=== PATIENT | female | born 1970 | race Caucasian/White ===

== ENCOUNTER → 2017-10-03 09:51 | Outpatient (CLI) | payer OTHER, SELFPAY ==
--- NOTE | 2017-10-03 10:12 | RAD_ITS ---
STUDY: X-RAY - PELVIS REASON FOR EXAM: Female, 47 years old. PAIN IN BOTH HIPS. INFLAMMATORY POLYARTHROPATHY TECHNIQUE: One view of the pelvis was obtained. COMPARISON: None. FINDINGS: There is a non-specific bowel gas pattern. Normal visualized soft tissue structures. Normal bilateral iliac wings, sacroiliac joints and visualized sacrum. Normal visualized bilateral superior and inferior pubic rami. Normal pubic symphysis. Normal ischial tuberosities. Normal visualized right femoral head. Normal right acetabulum. Normal right hip joint. Normal visualized left femoral head. Normal left acetabulum. Normal left hip joint. RAD/Pelvis 1 or 2 Views IMPRESSION: Normal x-ray examination of the pelvis. Electronically Signed: Ez Randall MD at 20:17 EDT , Service support ,
[2017-10-03 12:22] LABS: Protein, Urine (Random) 13.9 mg/dL (<11.9); Protein:Creat Ratio 102 mg/g CRE (0-200)
[2017-10-03 12:51] LABS: Erythrocyte Sedimentation Rate 21 mm/hr (0-20)
[2017-10-03 12:53] LABS: Absolute Lymphocyte Count 2.33 X10^3/ul (0.83-4.51); Absolute Neutrophil Count 3.5 X10^3/uL (2.0-7.7); Basophil# 0.03 X10^3/uL; Basophil% 0.5 % (0-1); Eosinophil# 0.21 X10^3/uL; Eosinophils% 3.2 % (0-5); Hematocrit 43.8 % (37-47); Hemoglobin 13.6 g/dl (12.0-15.0); Lymphocyte # 2.33 X10^3/ul (4.0); Lymphocyte % 35.8 % (19-41); Mean Corp Hgb Conc 31.1 g/gl (32-36); Mean Corpuscular Hgb 27.1 pg (27.0-32.0); Mean Corpuscular Volume 87.3 fL (81-99); Mean Platelet Vol. 11.6 fl (6.2-12.0); Monocyte# 0.47 X10^3/uL; Monocyte% 7.2 % (0-10); Neutrophil # 3.46 X10^3/uL (2.7-7.7); Neutrophil % 53.3 % (47-70); Platelet Count 231 K/mm3 (150-450); RBC Distribution Width CV 13.9 % (11.6-14.6); RBC Distribution Width SD 44.2 fl (35.1-43.9); Red Blood Count 5.02 M/mm3 (4.2-5.4); White Blood Count 6.5 K/mm3 (4.4-11.0)
[2017-10-03 12:54] LABS: POSITIVE COUNT NO; POSITIVE DIFFERENTIAL NO; POSITIVE MORPHOLOGY NO
[2017-10-03 13:14] LABS: ALB/GLOB Ratio 0.9 RATIO (0.9-2.4); AST(SGOT) 35 U/L (15-37); Alanine Aminotransfer ALT/SGPT 47 U/L (13-56); Albumin, Serum 3.6 g/dL (3.2-5.0); Alkaline Phosphatase 86 U/L (45-117); Anion Gap 11 (5-15); BUN 10 mg/dL (7-18); BUN/Creat Ratio 14.6 RATIO (10-20); Calcium,Total 8.9 mg/dL (8.5-10.1); Chloride 102 mmol/L (98-107); Creatinine, Serum 0.68 mg/dL (0.55-1.02); EST Glomerular Filtration Rate 98 mL/min (>60); Est Glom Filt Rate - Afr Amer 119 mL/min (>60); Globulin 4.2 g/dL (2.2-4.2); Glucose 153 mg/dL (74-106); Protein, Total 7.8 g/dL (6.4-8.2); Rheumatoid Factor < 10.0 IU/mL (<15); Sodium Level 140 mmol/L (136-145)
[2017-10-04 16:10] LABS: Anti-Centromere B Ab <0.2 AI (0.0-0.9); Anti-Jo <0.2 AI (0.0-0.9); Anti-Scleroderma-70 AB <0.2 AI (0.0-0.9); RNP Ab 0.2 AI (0.0-0.9); SJOGREN'S Anti-SS-A test < 0.2 AI (0.0-0.9); SJOGREN'S Anti-SS-B test < 0.2 AI (0.0-0.9); Smith Ab <0.2 AI (0.0-0.9)
[2017-10-05 09:53] LABS: ANTINUCLEAR ANTIBODIES DIRECT Negative (Negative); Anti-dsDNA Ab <1 IU/mL (0-9)
[2017-10-08 16:07] LABS: Complement C3 200 mg/dL (82-167)
[2017-10-09 09:08] LABS: CCP IgG Antibodies 10 units (0-19); HEPATITIS B SURFACE AG Negative (Negative); HLA B27 Negative (.); Hep B Surface Antibodies Reactive (.); Hep C Antibodies 0.1 s/co ratio (0.0-0.9)
== END ==
PROVIDERS: Family Provider Family Medicine; PCP Family Medicine; Visit Provider Internal Medicine Rheumatology
DX: M06.4 Inflammatory polyarthropathy (principal); M79.7 Fibromyalgia; K76.0 Fatty (change of) liver, not elsewhere classified; M21.40 Flat foot [pes planus] (acquired), unspecified foot; K21.9 Gastro-esophageal reflux disease without esophagitis; E11.9 Type 2 diabetes mellitus without complications; I10 Essential (primary) hypertension; F41.1 Generalized anxiety disorder; G43.909 Migraine, unspecified, not intractable, without status migrainosus; J45.909 Unspecified asthma, uncomplicated
CPT/HCPCS: 36415; 72170; 80053; 81374; 82570; 84156; 85025; 85652; 86038; 86140; 86160; 86200; 86225; 86235; 86431; 86706; 86803; 87340

== ENCOUNTER 2024-11-24 10:02 | Emergency (ER) | payer OTHER, SELFPAY ==
[2024-11-24 10:02] VITALS: BP 144/82; PULSE 88; RESP 20; TEMP 36.6; O2SAT 100
--- NOTE | 2024-11-24 10:13 | EDS_ITS ---
HPI History of Present Illness Chief Complaint: Back Narrative Narrative: 54-year-old female past medical history of diabetes, fibromyalgia presents with her after a fall in the shower approximately an hour and a half ago. She states that they were staying at a cabin in [place] and she fell directly onto the small of her back in the shower. She denies hitting her head or loss of consciousness. She has pain mainly in the lower portion of her lumbar spine. She denies other injuries. She was able to get up and ambulate afterwards. She states she does not have problems chronically with her back but has had back pain in the past. She is unable to get comfortable, and fears she may have broken her back. PFSH PFSH Home Medications ?Medication ?Instructions ?Recorded ?Last Taken ?Type ondansetron 4 mg disintegrating 4 mg PO Q8H PRN PRN Na usea #15 tabs 11/24/24 Unknown Rx tablet oxycodone-acetaminophen 5 mg-325 1 tab PO Q6H PRN pain 3 days #12 11/24/24 Unkno wn Rx mg tablet (Percocet) tabs Allergy/AdvReac Type Severity Reaction Status Date / Time clarithromycin (From Biaxin) Allergy Intermediate Hives Verified 11/24/24 10:05 acetaminophen (From Vicodin) AdvReac Intermediate Nausea Verified 11/24/24 10:05 hydrocodone (From Vicodin) AdvReac Intermediate Nausea Verified 11/24/24 10:05 sumatriptan (From Imitrex) AdvReac Mild Other Verified 11/24/24 10:05 Social History Smoking Status: Never smoker ROS ROS ED ROS Narrative Review of systems positive for lower lumbar spinal pain. Denies hitting head, loss of consciousness, no neck pain, no other injury. EXAM Physical Exam Narrative Exam Narrative: GCS 15. ABCs intact. Cardiovascular examination regular rate and rhythm. Lungs are clear to auscultation bilaterally with mild tachypnea. Abdomen is soft and nontender without guarding or rebound. No cervical spine pain or crepitance, no thoracic spine pain or crepitance. Diffuse tenderness to palpation throughout lower lumbar spine area but no step-off noted. Neurovascularly intact bilateral lower extremities. Able to lift bilateral legs off bed without difficulty. Plantarflexion and dorsiflexion of foot intact bilaterally. Const Vital Signs: 11/24/24 10:02 Temperature 97.8 F Temperature Source Oral Pulse Rate 88 Respiratory Rate 20 H Blood Pressure 144/82 H Blood Pressure Mean 102 Pulse Ox 100 Oxygen Delivery Method Room Air MDM MDM MDM Narrative Medical decision making narrative: Differential diagnosis includes but not limited to lumbar contusion status post fall versus vertebral fracture versus compression fracture. Patient asked specifically for Toradol as an intramuscular injection. She has allergies to Vicodin which is actually nausea and vomiting [address] of the lumbar spine was obtained to help rule in/out fracture. I reviewed the radiology report of the CT of the lumbar spine. There is an acute compression fracture of the upper endplate of T12 with 30% height loss and 5 mm of retropulsion which causes mild canal stenosis but there is no mention of spinal cord compression. Additionally there is an acute compression fracture of the upper endplate of L3 with 25% height loss without retropulsion. Upon repeat examination she feels mildly improved stating her pain is down to a 5 or 6. I do feel she can be discharged to follow-up with orthopedic spine. I discussed with her the use of narcotic pain medication and she states she has tolerated Percocet in the past. She was given an oxycodone and a Zofran here and written prescriptions for Percocet for 3 days and for Zofran No. 15. I feel she can be discharged to follow-up. Return instructions to the emergency department were reviewed. Disposition is discharged home in stable condition. History & Record Review Additional record(s) reviewed:: Prior ED visit Radiography Diagnostic Testing: Clinical Impression(s) from Imaging Studies Lumbar Spine CT 11/24/24 10:13 IMPRESSION: Acute compression fracture of the upper endplate of T12 with 30% height loss and 5 mm retropulsion causing mild canal stenosis. Acute compression fracture at the upper endplate of L3 with 25% height loss and without retropulsion. Reading Location: [facility] Discharge Plan Triage Chief Complaint: Back ED Provider: aRdames Paredes Dx/Rx/DC Orders Clinical Impression: Fall, T12 compression fracture, Compression fracture of L3 vertebra Instructions: ED Fracture, Vertebral Compression, ED Fall Prevention Prescriptions: New oxycodone-acetaminophen [Percocet] 5-325 mg tablet 1 tab PO Q6H PRN (Reason: pain) 3 Days Qty: 12 0RF ondansetron 4 mg tablet,disintegrating 4 mg PO Q8H PRN PRN (Reason: Nausea) Qty: 15 0RF Stand Alone Forms: ED Work / School Excuse Primary Care Provider: Jose Miguel Mckenzie Referrals: Wilder Conrad MD [Med Staff - Active Staff, Orthopedics] - 3-5 Days Jose Miguel Mckenzie MD [Primary Care Provider, Family Practice] - 3-5 Days Activity Restrictions/Additional Instructions: Follow-up with Dr. Conrad with orthopedic spine in the next 3 to 5 days. Print Language: Norwegian Disposition Disposition: Home, Self Care
--- NOTE | 2024-11-24 10:13 | CT_ITS ---
PROCEDURE: SPINE LUMBAR WITHOUT CONTRAST 11/24/2024 REASON FOR EXAM: TRAUMA TECHNIQUE: Procedure Code: CTSPL Modality: CT Procedure: SPINE LUMBAR WITHOUT CONTRAST Coronal and Sagittal reconstruction series were provided. One or more dose reduction techniques were used (e.g., Automated exposure control, adjustment of the mA and/or kV according to patient size, use of iterative reconstruction technique COMPARISON: None. RADIATION DOSE SUMMARY: CTDlvol: 27.33 mGy DLP: 896.58 mGycm FINDINGS: Vertebrae: Acute compression fracture of the upper endplate of T12 with 30% height loss and 5 mm retropulsion causing mild canal stenosis. Acute compression fracture at the upper endplate of L3 with 25% height loss and without retropulsion. Alignment: Normal. L1-2: No significant foraminal or canal stenosis. L2-3: No significant foraminal or canal stenosis. L3-4: No significant foraminal or canal stenosis. L4-5: No significant foraminal or canal stenosis. L5-S1: No significant foraminal or canal stenosis. Sacrum: No acute fractures. CT/Spine Lumbar without Contrast IMPRESSION: Acute compression fracture of the upper endplate of T12 with 30% height loss an d 5 mm retropulsion causing mild canal stenosis. Acute compression fracture at the upper endplate of L3 with 25% height loss and without retropulsion. Reading Location: [id number]
--- OUTSIDE RECORDS SUMMARY | 2024-11-24 10:27 | XMS RPT_ITS | CCD ---
Author Organization [facility] CliniSywv Care Team Providers Care Parachute Folder Name Role Phone Unavailable Unavailable Unavailable Nidhi Davis Unavailable Unavailable FarNidhi cárdenas Unavailable Unavailable Vellanki, Karen Unavailable Unavailable Vellanki, Karen Unavailable Unavailable Mckenzie, Jose Miguel Unavailable Unavailable Mckenzie, Christopher Unavailable Unavailable Furness Jd Unavailable Unavailable Mckenzie Christopher D Unavailable Unavailable Wood, Stella Unavailable Unavailable Jd Brennan Unavailable Unavailable Unavailable Jd Brennan Unavailable Rigo Escoto Unavailable Unavailabl e Unavailable Unavailable JD BRENNAN Primary Care UnaKEVON Rider Attending Unavailable Jd Brennan MD Primary Care [facility] er Unavailable Unavailable Unavailable Unavailable Fernando Bynum Unavailable Unavailable Ranjith, Prudence Unavailable Unavailable Bilderback, Kenia Unavailable Unavailabl e Jd Brennan MD Primary Care Provider Mika, Dr. Jd Sánchez Primary Care Un available Furness, Dr. Jd Sánchez Attending Un available Furness, Dr. Jd Sánchez Referring Un available Furness, Dr. Jd Sánchez Primary Care Un available Furness, Dr. Jd Sánchez Attending Un available Furness, Dr. Jd Sánchez Referring Un available Furness, Dr. Jd Sánchez Primary Care Un available Winston Darius, Dr. Taurus Valdivia Attending U navailable Tish Mccoy, Dr. Taurus Valdivia Referring U navailable Furnremigio, Dr. Jd Sánchez Primary Care Un available LeMasters, Dr. Rigo Gao Referring Unav ailable Winston Darius, Dr. Taurus Valdivia Attending U navailable Furness, Dr. Jd Sánchez Primary Care Un available Winston DariusTaurus Attending Unavailable LEMASTERS, DO RIGO GAO Attending Unava ilable Furness, Dr. Jd Sánchez Primary Care Un available Bilderback, Ms. Kenia Palafox Attending Unavailable Furness, Dr. Jd Sánchez Primary Care Un available Furness, Dr. Jd Sánchez Primary Care Un available Kamenik, Fernando Tessie Attending Unavai lable Furness, Dr. Jd Sánchez Primary Care Un available Ranjith, Prudence Attending Unavailable Furness, Dr. Jd Sánchez Primary Care Un available Winston DariusTaurus Attending Unavailable Winston Taurus Mccoy Referring Unavailable Furness, Dr. Jd Sánchez Primary Care Un available Furness, Dr. Jd Sánchez Attending Un available Furness, Dr. Jd Sánchez Referring Un available Furness Jd NEUMANN Primary Care Provider [phone] Furness Jd NEUMANN Primary Care Provider [phone] JD BRENNAN Attending Unavailable FURNESS, JD Hoffmann Referring Unavailable FURNESS, JD Hoffmann Primary Care Unavailable FURNESS, JD Hoffmann Attending Unavailable FURNESS, JD Hoffmann Primary Care Unavailable FURNESSJD Attending Unavailable FURNESS, JD Hoffmann Referring Unavailable FURNESS, JD Hoffmann Primary Care Unavailable YEATERLUCIA Attending Unavailable FURNESS, JD Hoffmann Primary Care Unavailable YEATERLUCIA Referring Unavailable FURNESS, JD Hoffmann Primary Care Unavailable JAMES HOWARD Attending Unavailable YEATERLUCIA Referring Unavailable FURNESS, JD Hoffmann Primary Care Unavailable YEATERLUCIA Referring Unavailable FURNESS, JD Hoffmann Primary Care Unavailable Allergies Allergy Classification Reported Allergen(s) Allergy Type Date of Onset Reaction(s) Facility Acetaminophen / HYDROcodone (3 sources) Acetaminophen / HYDROcodone; Translations: [Vicodin TABS] Drug Allergy Vomiting [place] [address] [place] Work Phone: Adrenergic Antagonists (3 sources) tamsulosin; Translations: [Flomax] Drug Allergy Itching, Swelling [address] Work Phone: Macrolides (antibiotic) (6 sources) Azithromycin; Translations: [azithromycin] Drug Allergy Diarrhea, Abdominal pain [address] Work Phone: Opioid Agonists (3 sources) Meperidine; Translations: [Demerol TABS] Drug Allergy Hypotension [address] Work Phone: Serotonin-1b and Serotonin-1d Receptor Agonists (6 sources) SUMAtriptan; Translations: [Imitrex] Drug Allergy [address] Work Phone: Sulfamethoxazole / Trimethoprim (6 sources) Sulfamethoxazole / Trimethoprim; Translations: [sulfamethoxazole-tr imethoprim] Drug Allergy Rash, Itching [address] Work Phone: (20 sources) Acetaminophen / HYDROcodone; Translations: [Vicodin TABS] Drug Allergy 06-19-19 23 Vomiting, Unknown [email or web address] [facility] Work Phone: (20 sources) Azithromycin; Translations: [azithromycin] Drug Allergy 05-03-19 22 Diarrhea [employer] [facility] Work Phone: Comment on above: NAUSEA/ VOMITING / D IARRHEA (20 sources) Erythromycin; Translations: [erythromycin] Drug Allergy 05-03-19 22 Abdominal pain, GI Intolerance, Unknown [employer] [facility] Work Phone: Comment on above: VOMITING / NAUSEA (20 sources) Meperidine; Translations: [Demerol TABS] Drug Allergy 05-03-19 22 Hypotension, Other (See Comments), Anaphylaxis, Unknown [employer] [facility] Work Phone: (20 sources) Sulfamethoxazole / Trimethoprim; Translations: [Bactrim] Drug Allergy Hives/Urticari a, Hives [email or web address] [facility] Work Phone: (20 sources) Sulfamethoxazole / Trimethoprim; Translations: [sulfamethoxazole-tr imethoprim] Drug Allergy 06-19-19 23 Rash, Itching, Unknown [email or web address] [facility] Work Phone: (20 sources) SUMAtriptan; Translations: [Imitrex] Drug Allergy [facility] Work Phone: (20 sources) tamsulosin; Translations: [Flomax] Drug Allergy [facility]ching, [facility] Work Phone: (20 sources) ZOLMitriptan; Translations: [Zomig] Drug Allergy Other [facility] Work Phone: Comment on above: VISION PROBLEMS (4 sources) Clarithromycin Drug Allergy Hives/Urticari a, Hives [facility] (4 sources) Meperidine Drug Allergy Unknown [facility] (12 sources) Bacitracin; Translations: [BACITRACIN] Drug Allergy 05-03-19 22 Hives [facility] (3 sources) Meperidine; Translations: [MEPERIDINE] Drug Allergy 05-03-19 22 [facility] (15 sources) SUMAtriptan; Translations: [SUMATRIPTAN] Drug Allergy 05-03-19 22 Other (See Comments), Unknown [facility] (13 sources) Clarithromycin; Translations: [CLARITHROMYCIN] Drug Allergy 06-19-19 Unknown [facility] Work Phone: (13 sources) tamsulosin; Translations: [TAMSULOSIN] Drug Allergy 06-19-19 23 Itching, Swelling [facility] Work Phone: (13 sources) ZOLMitriptan; Translations: [ZOLMITRIPTAN] Drug Allergy 06-19-19 Unknown [facility] Work Phone: (2 sources) Acetaminophen / HYDROcodone; Translations: [HYDROCODONE-ACETAMI NOPHEN] Drug Allergy 06-19-19 23 [place] [id number] Repository Medications Current Medications Medication Drug Class(es) Dates Sig (Normalized) Sig (Original) [id number] actuat albuterol 0.09 mg/actuat metered dose inhaler (13 sources) beta2-Adrenergic Agonist Start: 08-29-2023 albuterol 90 mcg/actuation inhaler Indications: Mild intermittent asthma without complication ([facility]) Inhale 2 puffs if needed for wheezing. 18 g 11 08/29/2023 Active Start: 02-01-2022 take 2 puff(s) by in halation twice daily as needed for cough albuterol 90 mcg/inh inhalation aerosol ; 2 puff(s) inhaled 2 times a day as needed for cough Quantity: 8.5 Refills: 0 Ordered: 01-Feb-2022 Fernando Bynum Start: 01-Feb-2022 Generic Substitution Allowed Comments: For inhalation only.It is very important that you take or use this exactly as directed. Do not skip doses or discontinue unless directed by your doctor.Obtain medical advice before taking any non-prescription drugs as some may affect the action of this medication.Shake well before use. Start: 02-01-2022 End: 08-29-2023 albuterol 90 mcg/actuation i nhaler Inhale twice a day. 02/01/2022 08/29/2023 Discontinued (Reorder) Start: 01-13-2019 take 2 puff(s) by mo ut every four to six hours as needed Albuterol Sulfate HFA 108 (90 Base) MCG/ACT Inhalation Aerosol Solution INHALE 2 PUFFS BY MOUTH EVERY 4 TO 6 HOURS NEEDED FOR SHORTNESS OF Quantity: 18 Refills: 0 DO Start : 13-Jan-2019 Active Comment on above: For inhalation only. It is very important that you take or use this exactly as directed. Do not skip doses or discontinue unless directed by your doctor.Obtain medical advice before taking any non-prescription drugs as some may affect the action of this medication.Shake well before use. amoxicillin 875 mg / clavulanate 125 mg oral tablet (4 sources) Penicillin-class Antibacterial Start: 03-06-20 End: 03-15-19 23 take 1 tablet by mouth every twelve hours amoxicillin-clavul anate 875 mg-125 mg oral tablet ; 1 tab(s) orally every 12 hours Quantity: 20 Refills: 0 Ordered: 05-Mar-2022 Kenia Morillo Start: 05-Mar-2022 End: 14-Mar-2022 Generic Substitution Allowed Comments: Finish all this medication unless otherwise directed by prescriber.Take with food or milk. Start: 01-17-2019 take 1 tablet by pauly th once daily Amoxicillin-Pot Clavulanate 875-125 MG Oral Tablet TAKE 1 TABLET EVERY 12 HOURS DAILY. Quantity: 20 Refills: 0 Jd Brennan Start : 17-Jan-2019 Active Comment on above: Finish all this medi cation unless otherwise directed by prescriber.Take with food or milk. ascorbic acid 500 mg oral tablet (15 sources) Vitamin C take 1 tablet by mouth once daily ascorbic acid (Vitamin C) 500 mg tablet Take 1 tablet (500 mg) by mouth once daily. Active Vitamin C TABS T JUDIE 1 TABLET DAILY. Refills: 0 DO Active Vitamin C TABS T JUDIE 1 TABLET DAILY. Refills: 0 Active aspirin 81 mg delayed release oral tablet (20 sources) Platelet Aggregation Inhibitor, Nonsteroidal Anti-inflammatory Drug Start: 02-25-2023 End: 03-08-2025 take 1 tablet by mouth once daily aspirin 81 mg EC tablet Indications: Primary hypertension Take 1 tablet (81 mg) by mouth once daily. 90 tablet 3 03/08/2024 03/08/2025 Active Start: 09-17-2022 take 1 tablet by [facility] once daily Aspirin 81 MG Oral Tablet Delayed Release TAKE 1 TABLET BY MOUTH EVERY DAY Quantity: 90 Refills: 3 Ordered: 17-Sep-2022 Taurus Bazzi MD Start : 17-Sep-2022 Active End: 03-02-2021 Aspirin 81 MG Oral Tablet Ch ewable Quantity: 0 Refills: 0 Ordered: 02-Mar-2021 DO End : 02-Mar-2021 Complete Aspirin 81 MG Or al Tablet Chewable Quantity: 0 Refills: 0 Ordered: 11-Dec-2020 DO Active calcium carbonate 2500 mg / cholecalciferol 800 unt oral tablet (11 sources) Vitamin D take 1 tablet by mouth once daily calcium carbonate-vitamin D3 1,000 mg-20 mcg (800 unit) tablet Take 1 tablet by mouth once daily. Active cyclobenzaprine hydrochloride 5 mg oral tablet (20 sources) Muscle Relaxant Start: 02-26-20 End: 03-08-19 cyclobenzaprine (Flexeril) 5 mg tablet Indications: Fibromyalgia Take 1 tablet (5 mg) by mouth as needed at bedtime for muscle spasms. 90 tablet 3 03/08/2024 03/08/2025 Active Start: 02-17-2021 take 1 tablet by pauly th three times daily as needed Cyclobenzaprine HCl - 5 MG Oral Tablet TAKE 1 TABLET 3 TIMES DAILY NEEDED. Quantity: 30 Refills: 1 Ordered: 28-Aug-2021 Jd Brennan MD Start : 17-Feb-2021 Active take 2 tablets by mo [facility] at bedtime Cyclobenzaprine HCl - 10 MG Oral Tablet TAKE 2 TABLET Bedtime PRN spasm Refills: 0 Active dapagliflozin 10 mg oral tablet (17 sources) Sodium-Glucose Cotransporter 2 Inhibitor Start: 02-25-2023 End: 03-08-2025 take 1 tablet by mouth once daily before mealtime dapagliflozin propanediol (Farxiga) 10 mg Indications: Type 2 diabetes mellitus without complication, without long-term current use of insulin Take 1 tablet (10 mg) by mouth once daily in the morning. Take before meals. 90 tablet 3 03/08/2024 03/08/2025 Active Start: 12-03-2021 take 1 tablet by pauly once daily in the morning Farxiga 10 MG Oral Tablet TAKE 1 TABLET BY MOUTH EVERY MORNING Quantity: 90 Refills: 3 Ordered: 22-Mar-2022 Jd Brennan MD Start : 03-Dec-2021 Active dextromethorphan hydrobromide 3 mg/ml / promethazine hydrochloride 1.25 mg/ml oral solution (1 source) Phenothiazine, Uncompetitive G-ujzlno-Y-aspartate Receptor Antagonist, Sigma-1 Agonist Start: 05-03-2021 End: 05-10-2021 take 5 mL by mouth four times daily as needed for cough promethazine-dextromethorphan (PROMETHAZINE-DM) 6.25-15 mg/5 mL syrup Take 5 mL by mouth 4 (four) times a day as needed for cough . 120 mL 0 05/03/2021 05/10/2021 Active dicyclomine hydrochloride 20 mg oral tablet (1 source) Anticholinergic Start: 10-28-2020 take 1 tablet by mouth four times daily dicyclomine 20 mg oral tablet ; 1 tab(s) orally 4 times a day Quantity: 20 Refills: 0 Ordered: 28-Oct-2020 Rigo Escoto Start: 28-Oct-2020 Generic Substitution Allowed Comments: May cause drowsiness. Alcohol may intensify this effect. Use care when operating dangerous machinery. Comment on above: May cause drowsiness . Alcohol may intensify this effect. Use care when operating dangerous machinery. 0.5 ml dulaglutide 3 mg/ml auto-injector (20 sources) GLP-1 Receptor Agonist Start: 02-15-2018 dulaglutide 1.5 mg/0.5 mL Pe n Inject 1 Unspecified under the skin . 0 02/15/2018 Active Trulicity Pen ; subcutaneous once a week Quantity: 0 Refills: 0 Ordered: 13-Feb-2020 Bowling, Melanic Generic Substitution Allowed dulaglutide (Trulicity) 3 mg/0.5 mL pen injector (3 sources) Start: 01-04-2023 End: 03-08-2024 dulaglutide (Trulicity) 3 mg /0.5 mL pen injector Indications: Type 2 diabetes mellitus without complication, without long-term current use of insulin (Multi) INJECT 1 PEN UNDER THE SKIN WEEKLY 2 mL 11 01/04/2023 03/08/2024 Discontinued (Therapy completed) Start: 01-04-2023 dulaglutide (T rulicity) 3 mg/0.5 mL pen injector Indications: Type 2 diabetes mellitus without complication, without long-term current use of insulin (Multi) INJECT 1 PEN UNDER THE SKIN WEEKLY 2 mL 11 01/04/2023 Active fexofenadine hydrochloride 180 mg oral tablet (20 sources) Histamine-1 Receptor Antagonist Start: 12-03-2022 End: 06-11-2025 take 1 tablet by mouth once daily fexofenadine (Brynn) 180 mg tablet Indications: Non-seasonal allergic rhinitis, unspecified trigger Take 1 tablet (180 mg) by mouth once daily. 90 tablet 3 06/11/2024 06/11/2025 Active take 1 tablet by mouth once james y Brynn 180 mg oral tablet ; 1 tab(s) orally once a day Quantity: 0 Refills: 0 Ordered: 13-Feb-2020 Bowling, Melanic Generic Substitution Allowed Brynn CAPS [place] ntity: 0 Refills: 0 Ordered: 02-Sep-2020 DO Active fluconazole 150 mg oral tablet (14 sources) Azole Antifungal Start: 08-29-2023 End: 08-29-2023 take 1 tablet by mouth once fluconazole (Diflucan) 150 mg tablet Indications: Mild intermittent asthma without complication ([facility]) Take 1 tablet (150 mg) by mouth 1 time for 1 dose. 1 tablet 1 08/29/2023 08/29/2023 Active Start: 07-11-2020 take 1 tablet by mouth once Fl uconazole 150 MG Oral Tablet TAKE 1 TABLET 1 TIME ONLY. Quantity: 1 Refills: 5 Ordered: 28-Aug-2021 Jd Brennan MD Start : 11-Jul-2020 Active Start: 03-19-2019 take 1 tablet by mouth once Fl uconazole 150 MG Oral Tablet TAKE 1 TABLET 1 TIME ONLY. Quantity: 2 Refills: 0 Stella Rinaldi Start : 19-Mar-2019 Active insulin detemir 100 unt/ml injectable solution (5 sources) Insulin Analog Levemir FlexPen 100 units/mL subcutaneous solution ; 24 unit(s) subcutaneous once a day Quantity: 0 Refills: 0 Ordered: 13-Feb-2020 Bowling, Melanic Generic Substitution Allowed inject 32 [IU] by [place]andon bcutaneous injection once daily, then inject 100 [IU] by subcutaneous injection Levemir FlexPen 100 UNIT/ML Subcutaneous Solution INJ 32 UNITS SQ DAILY Refills: 0 Active metFORMIN hydrochloride 1000 mg oral tablet (20 sources) Biguanide Start: 02-25-2023 End: 03-08-2025 take 1 tablet by mouth twice daily metFORMIN (Glucophage) 1,000 mg tablet Indications: Type 2 diabetes mellitus without complication, without long-term current use of insulin Take 1 tablet (1,000 mg) by mouth 2 times a day. 180 tablet 3 03/08/2024 03/08/2025 Active Start: 12-03-2021 take 1 tablet by pauly twice daily metFORMIN HCl - 1000 MG Oral Tablet TAKE 1 TABLET TWICE DAILY. Quantity: 180 Refills: 3 Ordered: 22-Mar-2022 Jd Brennan MD Start : 03-Dec-2021 Active Start: 01-17-2019 take 2 tablets by mo [facility] once daily at dinner metFORMIN HCl ER 750 MG Oral Tablet Extended Release 24 Hour TAKE 2 TABLETS ONCE DAILY WITH THE EVENING MEAL. Quantity: 180 Refills: 3 Jd Brennan Start : 17-Jan-2019 Active 24 hr metoprolol succinate 50 mg extended release oral tablet (20 sources) beta-Adrenergic Marga Start: 02-25-2023 End: 03-08-2025 take 1 tablet by mouth once daily metoprolol succinate XL (Toprol XL) 50 mg 24 hr tablet Indications: Primary hypertension Take 1 tablet (50 mg) by mouth once daily. 90 tablet 3 03/08/2024 03/08/2025 Active take 1 tablet by mouth once james y Metoprolol Succinate ER 50 MG Oral Tablet Extended Release 24 Hour TAKE 1 TABLET DAILY. Quantity: 90 Refills: 3 Ordered: 22-Mar-2022 Jd Brennan MD Active montelukast 10 mg oral tablet (8 sources) Leukotriene Receptor Antagonist Start: 06-11-2024 End: 06-11-2025 take 1 tablet by mouth once daily at bedtime montelukast (Singulair) 10 mg tablet Indications: Non-seasonal allergic rhinitis, unspecified trigger Take 1 tablet (10 mg) by mouth once daily at bedtime. 90 tablet 3 06/11/2024 06/11/2025 Active Start: 12-03-2022 End: 03-08-2024 take 1 tablet by mouth once daily at bedtime montelukast (Singulair) 10 mg tablet Indications: Non-seasonal allergic rhinitis, unspecified trigger Take 1 tablet (10 mg) by mouth once daily at bedtime. 90 tablet 3 12/03/2022 03/08/2024 Discontinued (Therapy completed) Multivitamin preparation (4 sources) take 1 tablet by pauly th once daily Multiple Vitamins oral tablet ; 1 tab(s) orally once a day Quantity: 0 Refills: 0 Ordered: 26-Feb-2020 Anjel Eldridge Generic Substitution Allowed MULTIVITAMIN-FERROUS FUMARATE-FOLIC ACID 9 MG-200 MCG TABLET, HALF TABLET, (Centrum) (11 sources) MULTIVITAMIN-CHING NINA FUMARATE-FOLIC ACID 9 MG-200 MCG TABLET, HALF TABLET, (Centrum) Take 1 half tablet by mouth once daily. Active MULTIVITAMIN-CHING NINA FUMARATE-FOLIC ACID 9 MG-200 MCG TABLET, HALF TABLET, (Centrum) Take 1 half tablet by mouth once daily. 0 Active omeprazole 40 mg delayed release oral capsule (20 sources) Proton Pump Inhibitor Start: 02-25-2023 End: 03-08-2025 take 1 capsule by mouth once daily before mealtime omeprazole (PriLOSEC) [address] capsule Indications: Gastroesophageal reflux disease without esophagitis Take 1 capsule (40 mg) by mouth once daily in the morning. Take before meals. 90 capsule 3 03/08/2024 03/08/2025 Active Start: 10-17-2019 End: 11-15-2023 take 1 capsule by mouth once daily before mealtime omeprazole (PriLOSEC) [address] capsule Indications: Gastroesophageal reflux disease without esophagitis Take 1 capsule (20 mg) by mouth once daily in the morning. Take before meals. 90 capsule 3 11/15/2022 11/15/2023 Active take 1 capsule by [facility] once daily Omeprazole 40 MG Oral Capsule Delayed Release TAKE 1 CAPSULE Daily Refills: 0 Active ondansetron 4 mg disintegrating oral tablet (1 source) Serotonin-3 Receptor Antagonist Start: 10-28-2020 take 1 tablet by mouth three times daily ondansetron 4 mg oral tablet, disintegrating ; 1 tab(s) orally 3 times a day Quantity: 12 Refills: 0 Ordered: 28-Oct-2020 Rigo Escoto Start: 28-Oct-2020 Generic Substitution Allowed oxyCODONE hydrochloride 5 mg oral tablet (1 source) Opioid Agonist Start: 10-28-2020 End: 10-30-2020 take 1 tablet by mouth every eight hours as needed oxyCODONE 5 mg oral tablet ; 1 tab(s) orally every 8 hours, As Needed Quantity: 9 Refills: 0 Ordered: 28-Oct-2020 Rigo Escoto Start: 28-Oct-2020 End: 30-Oct-2020 Generic Substitution Allowed Comments: Caution federal law prohibits the transfer of this drug to any person other than the person for whom it was prescribed.It is very important that you take or use this exactly as directed. Do not skip doses or discontinue unless directed by your doctor.May cause drowsiness or dizziness.This prescription cannot be refilled.Using more of this medication than prescribed may cause serious breathing problems. Comment on above: Caution federal law prohibits the transfer of this drug to any person other than the person for whom it was prescribed.It is very important that you take or use this exactly as directed. Do not skip doses or discontinue unless directed by your doctor.May cause drowsiness or dizziness.This prescription cannot be refilled.Using more of this medication than prescribed may cause serious breathing problems. predniSONE 20 mg oral tablet (9 sources) Start: 03-29-2024 End: 04-03-2024 take 2 tablets by mouth once daily predniSONE (Deltasone) 20 mg tablet Indications: Mild intermittent asthma without complication ([facility]) Take 2 tablets (40 mg) by mouth once daily for 5 days. 10 tablet 03/29/2024 04/03/2024 Active Start: 08-29-2023 End: 09-03-2023 take 2 tablets by mouth once daily predniSONE (Deltasone) 20 mg tablet Indications: Mild intermittent asthma without complication ([facility]) Take 2 tablets (40 mg) by mouth once daily for 5 days. 10 tablet 08/29/2023 09/03/2023 Active Start: 12-03-2022 End: 12-14-2022 take 4 tablets by mouth once daily, then take 3 tablets by mouth once daily, then take 2 tablets by mouth once daily, then take 1 tablet by mouth once daily predniSONE (Deltasone) 10 mg tablet Indications: Non-seasonal allergic rhinitis, unspecified trigger Take 4 tablets (40 mg) by mouth once daily for 3 days, THEN 3 tablets (30 mg) once daily for 3 days, THEN 2 tablets (20 mg) once daily for 3 days, THEN 1 tablet (10 mg) once daily for 3 days. 30 tablet 1 12/03/2022 12/14/2022 Active Start: 04-30-2021 take 2 tablets by [facility] once daily predniSONE 20 MG Oral Tablet TAKE 2 TABLETS DAILY. Quantity: 10 Refills: 0 Ordered: 30-Apr-2021 Jd Brennan MD Start : 30-Apr-2021 Active Start: 02-13-2019 take 2 tablets by [facility] once daily predniSONE 20 MG Oral Tablet TAKE 2 TABLETS DAILY. Quantity: 10 Refills: 1 Jd Brennan Start : 13-Feb-2019 Active rosuvastatin calcium 10 mg oral tablet (4 sources) HMG-CoA Reductase Inhibitor Start: 06-11-2024 End: 06-11-2025 take 1 tablet by mouth once daily rosuvastatin (Crestor) 10 mg tablet Indications: Mixed hyperlipidemia Take 1 tablet (10 mg) by mouth once daily. 90 tablet 3 06/11/2024 06/11/2025 Active sertraline 100 mg oral tablet (20 sources) Serotonin Reuptake Inhibitor Start: 02-25-2023 End: 03-08-2025 take 1 tablet by mouth once daily sertraline (Zoloft) 100 mg tablet Indications: Fibromyalgia Take 1 tablet (100 mg) by mouth once daily. 90 tablet 3 03/08/2024 03/08/2025 Active Start: 02-17-2021 take 1 tablet by pauly th once daily sertraline (ZOLOFT) 100 MG tablet Take 100 mg by mouth daily . 0 02/17/2021 Active take 0.5 tablet by m out once daily Sertraline HCl - 100 MG Oral Tablet TAKE 0.5 TABLET Daily Quantity: 0 Refills: 0 Ordered: 17-Sep-2022 Jd Brennan MD Active take 1 tablet by pauly th once daily Zoloft 50 mg oral tablet ; 1 tab(s) orally once a day Quantity: 0 Refills: 0 Ordered: 13-Feb-2020 Gurjit Hogan Generic Substitution Allowed tirzepatide (Mounjaro) 5 mg/0.5 mL pen injector (1 source) Start: 10-20-2023 End: 03-08-2024 tirzepatide (Mounjaro) 5 mg/0.5 mL pen injector Indications: Type 2 diabetes mellitus without complication, without long-term current use of insulin (Multi) Inject 5 mg under the skin every 7 days. 2 mL 11 10/20/2023 03/08/2024 Discontinued (Therapy completed) tirzepatide (Mounjaro) 7.5 mg/0.5 mL pen injector (6 sources) Start: 04-06-2024 inject 7.5 mg by subcutaneous injection every week tirzepatide (Mounjaro) 7.5 mg/0.5 mL pen injector Indications: Type 2 diabetes mellitus without complication, without long-term current use of insulin Inject 7.5 mg under the skin 1 (one) time per week. 6 mL 3 04/06/2024 Active Start: 03-08-2024 inject 7.5 mg by sub cutaneous injection every week tirzepatide (Mounjaro) 7.5 mg/0.5 mL pen injector Indications: Type 2 diabetes mellitus without complication, without long-term current use of insulin (Multi) Inject 7.5 mg under the skin 1 (one) time per week. 6 mL 3 03/08/2024 Active Trulicity 3 mg/0.5 mL pen in jector (3 sources) Trulicity 3 mg/0 .5 mL pen injector INJECT 1 PEN UNDER THE SKIN WEEKLY 0 Active vitamin e 180 mg oral tablet (19 sources) vitamin E acid s uccinate (vitamin E succinate) 268 mg (400 unit) tablet Take 400 Int'l Units/1.7m2 by mouth. Active take 1 capsule by mouth once edgard ly vitamin E 400 intl units oral capsule ; 1 cap(s) orally once a day Quantity: 0 Refills: 0 Ordered: 26-Feb-2020 Anjel Eldridge Generic Substitution Allowed Vitamin E TABS 4 00 IU daily Refills: 0 DO Active Vitamin E TABS 4 00 IU daily Refills: 0 Active Completed/Discontinued Medications Medication Drug Class(es) Dates Sig (Normalized) Sig (Original) acetaminophen 325 mg / oxyCODONE hydrochloride 5 mg oral tablet (6 sources) Opioid Agonist Start: 10-29-2020 take 1 tablet by mouth every four to six hours as needed for pain oxyCODONE-Acetami nophen 5-325 MG Oral Tablet TAKE 1 TABLET EVERY 4 TO 6 HOURS NEEDED FOR PAIN. Quantity: 26 Refills: 0 Ordered: 29-Oct-2020 Soy Santacruz DO Start : 29-Oct-2020 Active amoxicillin 500 mg oral tablet (4 sources) Penicillin-class Antibacterial Start: 09-28-2021 take 1 tablet by mouth three times daily Amoxicillin 500 MG Oral Tablet TAKE 1 TABLET 3 TIMES DAILY UNTIL GONE. Quantity: 21 Refills: 0 Ordered: 28-Sep-2021 Jd Brennan MD Start : 28-Sep-2021 Active Start: 05-03-2021 End: 05-10-2021 take 1 capsule by mouth three times daily amoxicillin (AMOXIL) 500 MG capsule Take 1 (one) capsule (500 mg total) by mouth 3 (three) times a day for 7 days . 21 capsule 0 05/03/2021 05/10/2021 Active atorvastatin 10 mg oral tablet (4 sources) HMG-CoA Reductase Inhibitor Start: 09-17-2022 take 1 tablet by mouth at bedtime Atorvastatin Calcium 10 MG Oral Tablet TAKE 1 TABLET AT BEDTIME. Quantity: 90 Refills: 3 Ordered: 17-Sep-2022 Taurus Bazzi MD Start : 17-Sep-2022 Active benzonatate 100 mg oral capsule (5 sources) Non-narcotic Antitussive Start: 04-30-2021 take 1-2 capsules by mouth every eight hours as needed for cough Benzonatate 100 MG Oral Capsule TAKE 1-2 CAPSULES EVERY 8 HOURS NEEDED for cough. Quantity: 42 Refills: 1 Ordered: 30-Apr-2021 Jd Brennan MD Start : 30-Apr-2021 Active Calcium (20 sources) Phosphate Binder, Calcium Calcium TABS Take 1 tablet daily Quantity: 0 Refills: 0 Ordered: 16-Jan-2019 DO Active Calcium TABS Kalen e 1 tablet daily Refills: 0 DO Active Calcium TABS Kalen e 1 tablet daily Refills: 0 Active cefdinir 300 mg oral capsule (1 source) Cephalosporin Antibacterial Start: 02-13-2020 End: 02-19-2020 take 1 capsule by mouth twice daily cefdinir 300 mg oral capsule ; 1 cap(s) orally 2 times a day Quantity: 14 Refills: 0 Ordered: 13-Feb-2020 Dipti Scott Start: 13-Feb-2020 End: 19-Feb-2020 Status: Other Generic Substitution Allowed Comments: Finish all this medication unless otherwise directed by prescriber. Comment on above: Finish all this medi cation unless otherwise directed by prescriber. cefuroxime 250 mg oral tablet (1 source) Cephalosporin Antibacterial Start: 06-10-2021 take 1 tablet by mouth twice daily Cefuroxime Axetil 250 MG Oral Tablet Take 1 tablet twice daily Quantity: 20 Refills: 0 Ordered: 10-Jun-2021 Jd Brennan MD Start : 10-Jun-2021 Active Cholecalciferol (4 sources) Vitamin D Vitamin D TABS TAKE 1 TABLET DAILY. Refills: 0 DO Active Vitamin D TABS T JUDIE 1 TABLET DAILY. Refills: 0 Active 24 hr dapagliflozin 5 mg / metFORMIN hydrochloride 1000 mg extended release oral tablet (20 sources) Biguanide, Sodium-Glucose Cotransporter 2 Inhibitor Start: 12-19-2018 take 1 tablet by mouth twice daily Xigduo XR 5-1000 MG Oral Tablet Extended Release 24 Hour Take 1 tablet twice daily Quantity: 180 Refills: 3 Ordered: 28-Aug-2021 Jd Brennan MD Start : 01-Jan-2020 Active Start: 12-19-2018 dapagliflozin- metformin (XIGDUO XR) 5-1,000 mg tablet Take 1 Unspecified by mouth . 0 12/19/2018 Active dexamethasone 4 mg oral tablet (4 sources) Corticosteroid Start: 08-28-2021 take 1 tablet by mouth twice daily Dexamethasone 4 MG Oral Tablet Take 1 tablet twice daily Quantity: 10 Refills: 1 Ordered: 28-Aug-2021 Jd Brennan MD Start : 28-Aug-2021 Active 0.4 ml enoxaparin sodium 100 mg/ml prefilled syringe (1 source) Low Molecular Weight Heparin Start: 02-27-2020 End: 03-27-2020 Lovenox 40 mg/0.4 mL injectable solution ; 40 milligram(s) subcutaneously once a day Quantity: 30 Refills: 0 Ordered: 27-Feb-2020 Luther Wade Start: 27-Feb-2020 End: 27-Mar-2020 Generic Substitution Allowed Comments: It is very important that you take or use this exactly as directed. Do not skip doses or discontinue unless directed by your doctor. Comment on above: It is very important that you take or use this exactly as directed. Do not skip doses or discontinue unless directed by your doctor. glimepiride 4 mg oral tablet (4 sources) Sulfonylurea Start: 01-17-2019 take 1 tablet by mouth once daily Glimepiride 4 MG Oral Tablet TAKE 1 TABLET DAILY DIRECTED. Quantity: 90 Refills: 3 Jd Brennan Start : 17-Jan-2019 Active Multi Vitamin Oral Tablet (4 sources) take 1 tablet by mouth once daily Multi Vitamin Oral Tablet TAKE 1 TABLET DAILY. Refills: 0 DO Active take 1 tablet by mouth once james y Multi Vitamin Oral Tablet TAKE 1 TABLET DAILY. Refills: 0 Active Multi Vitamin Oral Tablet (20 sources) take 1 tablet by pauly th once daily Multi Vitamin Oral Tablet TAKE 1 TABLET DAILY. Quantity: 0 Refills: 0 Ordered: 16-Jan-2019 DO Active Trulicity 3 MG/0.5ML Subcutaneous Solution Pen-injector (5 sources) inject 3 mg by subcu taneous injection every week Trulicity 3 MG/0.5ML Subcutaneous Solution Pen-injector Inject 3 mg weekly Quantity: 3 Refills: 3 Ordered: 18-Nov-2021 Jd Brennan MD Active Vitamin C TABS (20 sources) Vitamin C TABS T JUDIE 1 TABLET DAILY. Quantity: 0 Refills: 0 Ordered: 16-Jan-2019 DO Active Vitamin D TABS (20 sources) Vitamin D TABS T JUDIE 1 TABLET DAILY. Quantity: 0 Refills: 0 Ordered: 16-Jan-2019 DO Active Vitamin E TABS (20 sources) Vitamin E TABS 4 00 IU daily Quantity: 0 Refills: 0 Ordered: 16-Jan-2019 DO Active Problems Active Problems Problem Classification Problem Date Documented Da te Episodic/Chronic Allergic reactions (1 source) Allergy status to sulfonamides status; Translations: [Allergy status to sulfonamides] Onset: 3 Episodic Anxiety disorders (20 sources) Panic attack; Translations: [Generalized anxiety disorder] Onset: 3 06-18-2022 Chronic Asthma (10 sources) Mild intermittent asthma; Translations: [Mild intermittent asthma, uncomplicated] Onset: 4 08-29-2023 Chronic Diabetes mellitus with complications (20 sources) Type II diabetes mellitus uncontrolled; Translations: [Diabetes mellitus without mention of complication, type II or unspecified type, uncontrolled] Chronic Diabetes mellitus without complication (20 sources) Type 2 diabetes mellitus; Translations: [Type 2 diabetes mellitus without complication] Onset: 3 06-21-2022 Chronic Disorders of lipid metabolism (7 sources) Mixed hyperlipidemia; Translations: [Mixed hyperlipidemia] Onset: 5 06-11-2024 Chronic Esophageal disorders (20 sources) Gastroesophageal reflux disease; Translations: [Esophageal reflux] Onset: 3 06-18-2022 Chronic Essential hypertension (20 sources) Hypertensive disorder; Translations: [Unspecified essential hypertension] Onset: 3 06-21-2022 Chronic Headache; including migraine (20 sources) Migraine; Translations: [Migraine, unspecified, without mention of intractable migraine without mention of status migrainosus] Onset: 3 06-18-2022 Chronic Headache; including migraine (20 sources) Headache; Translations: [Headache] Episodic Headache; including migraine (1 source) Headache; including migraine; Translations: [Headache, unspecified] Onset: 2 Nonmalignant breast conditions (6 sources) Breast lump; Translations: [Unspecified lump in unspecified breast] Onset: 5 09-06-2024 Episodic Nonspecific chest pain (9 sources) Chest pain; Translations: [Chest pain, unspecified] Onset: 3 Episodic Other connective tissue disease (20 sources) Adhesive capsulitis of shoulder; Translations: [Adhesive capsulitis of shoulder] Episodic Other connective tissue disease (2 sources) Other specified soft tissue disorders; Translations: [Other specified soft tissue disorders] Onset: 5 Episodic Other gastrointestinal disorders (2 sources) Diarrhea; Translations: [Diarrhea] 10-28-2020 Episodic Other liver diseases (1 source) Fatty (change of) liver, not elsewhere classified; Translations: [Fatty (change of) liver, not elsewhere classified] Onset: 3 Chronic Other nervous system disorders (2 sources) Other chronic pain; Translations: [Other chronic pain] Onset: 5 Chronic Other non-traumatic joint disorders (3 sources) Pain in right shoulder; Translations: [Pain in joint, shoulder region] Onset: 5 08-30-2024 Episodic Other and delivery including normal (20 sources) Delivery normal; Translations: [Normal delivery] Episodic Comment on above: 08[birth year]07/1991 40 weeks ma le 8lbs 5oz02/18/1995 40 weeks femlae 8lbs 9oz; Other screening for suspected conditions (not mental disorders or infectious disease) (20 sources) Patient encounter status; Translations: [Breast screening, unspecified] Onset: 1 06-21-2022 Episodic Comment on above: 09/10/2020- WNL; ifobt; Other skin disorders (4 sources) Localized swelling of right upper limb; Translations: [Other specified soft tissue disorders] 09-06-2024 Episodic Other upper respiratory disease (11 sources) Allergic rhinitis; Translations: [Other allergic rhinitis] Onset: 3 12-03-2022 Chronic Other upper respiratory disease (2 sources) Other allergic rhinitis; Translations: [Other allergic rhinitis] Onset: 3 Chronic Residual codes; unclassified (1 source) Chronic back pain 08-30-2024 Episodic Rheumatoid arthritis and related disease (1 source) Inflammatory polyarthropathy; Translations: [M06.4 - Inflammatory polyarthropathy] Onset: 8 Chronic Syncope (2 sources) Syncope 10-28-2020 Comment on above: N & V, SYNCOPE, HEAD INJURY W/LOC Unclassified (1 source) 6 MO DMII GIL FATIGUE HTN NUMBNESS CK 06-19-2020 Comment on above: 6 MO DMII GIL FATIGU E HTN NUMBNESS CK Unclassified (1 source) Fracture of right ankle 10-28-2020 Unclassified (2 sources) COUGH CONGESTION 02-01-2022 Comment on above: COUGH CONGESTION Unclassified (3 sources) 4 MO FU 11-18-2021 Comment on above: 4 MO FU Unclassified (2 sources) CONGESTION 03-05-2022 Comment on above: CONGESTION Unclassified (1 source) Contact with and (suspected) exposure to COVID-19; Translations: [Contact with and (suspected) exposure to COVID-19] Onset: 3 Unclassified (1 source) Lng trm (crnt) use injectable non-insulin antidiabetic drugs; Translations: [Lng trm (crnt) use injectable non-insulin antidiabetic drugs] Onset: 2 Unclassified (1 source) Cough, unspecified; Translations: [Cough, unspecified] Onset: 2 Unclassified (1 source) Patient encounter status 08-30-2024 Unclassified (1 source) Acute cough; Translations: [Acute cough] Onset: 5 Past or Other Problems Problem Classification Problem Date Documented Da te Episodic/Chronic Acute bronchitis (1 source) Acute bronchitis, unspecified; Translations: [Acute bronchitis, unspecified] Onset: 03-06-2022 Episodic Conditions associated with dizziness or vertigo (20 sources) Dizziness; Translations: [Dizziness and giddiness] Onset: 06-18-2022 Resolved: 06-18-2022 06-18-2022 Episodic E Codes: Fall (20 sources) Fall on steps; Translations: [Accidental fall on or from other stairs or steps] Onset: 06-18-2022 Resolved: 06-18-2022 06-18-2022 Episodic Fracture of lower limb (20 sources) Fracture of ankle; Translations: [Unspecified fracture of ankle, closed] Onset: 06-18-2022 Resolved: 06-18-2022 10-28-2020 Episodic Lymphadenitis (20 sources) Lymphadenopathy; Translations: [Enlargement of lymph nodes] Onset: 06-18-2022 Resolved: 06-18-2022 06-18-2022 Episodic Malaise and fatigue (20 sources) Fatigue; Translations: [Other malaise and fatigue] Onset: 06-18-2022 Resolved: 12-03-2022 06-18-2022 Episodic Mycoses (20 sources) Candidiasis; Translations: [Candidiasis of unspecified site] Onset: 06-18-2022 Resolved: 06-18-2022 06-18-2022 Episodic Other aftercare (1 source) jail (current) use of oral hypoglycemic drugs; Translations: [jail (current) use of oral hypoglycemic drugs] Onset: 03-06-2022 Episodic Other aftercare (1 source) Other manager long term care (current) drug therapy; Translations: [Other assisted (current) drug therapy] Onset: 03-06-2022 Episodic Other circulatory disease (2 sources) Other specified symptoms and signs involving the circulatory and respiratory systems; Translations: [Oth symptoms and signs involving the circ and resp systems] Onset: 03-05-2022 Episodic Other connective tissue disease (20 sources) Fibromyalgia; Translations: [Myalgia and myositis, unspecified] Onset: 06-18-2022 06-21-2022 Episodic Other connective tissue disease (20 sources) Swelling of right lower limb; Translations: [Swelling of limb] Onset: 06-18-2022 Resolved: 06-18-2022 06-18-2022 Episodic Other connective tissue disease (11 sources) Adhesive capsulitis of left shoulder; Translations: [Adhesive capsulitis of left shoulder] Onset: 06-18-2022 Resolved: 06-18-2022 06-18-2022 Episodic Other connective tissue disease (2 sources) Fibromyalgia; Translations: [Fibromyalgia] Onset: 06-18-2022 Episodic Other liver diseases (20 sources) Steatosis of liver; Translations: [Other chronic nonalcoholic liver disease] Onset: 06-18-2022 Resolved: 06-18-2022 06-18-2022 Chronic Other lower respiratory disease (20 sources) Cough; Translations: [Cough] Onset: 06-18-2022 Resolved: 06-18-2022 06-18-2022 Episodic Other lower respiratory disease (1 source) Personal history of other diseases of the respiratory system; Translations: [Personal history of other diseases of the respiratory system] Onset: 03-06-2022 Episodic Other nervous system disorders (20 sources) Numbness; Translations: [Disturbance of skin sensation] Onset: 06-18-2022 Resolved: 06-18-2022 06-18-2022 Episodic Other non-traumatic joint disorders (20 sources) Swollen ankle region; Translations: [Effusion of joint, ankle and foot] Onset: 06-18-2022 Resolved: 06-18-2022 06-18-2022 Episodic Other nutritional; endocrine; and metabolic disorders (20 sources) Obesity; Translations: [Obesity, unspecified] Onset: 06-18-2022 Resolved: 06-18-2022 06-18-2022 Chronic Other nutritional; endocrine; and metabolic disorders (20 sources) History of diabetes mellitus type 2; Translations: [Personal history of other endocrine, metabolic, and immunity disorders] Resolved: 09-02-2020 Episodic Other upper respiratory disease (1 source) Nasal congestion; Translations: [Nasal congestion] Onset: 02-01-2022 Episodic Other upper respiratory infections (20 sources) Sore throat symptom; Translations: [Acute pharyngitis] Onset: 02-01-2022 Resolved: 06-18-2022 Episodic Comment on above: URI Otitis media and related conditions (20 sources) Acute serous otitis media; Translations: [Acute serous otitis media] Onset: 06-18-2022 Resolved: 06-18-2022 06-18-2022 Episodic Residual codes; unclassified (20 sources) Generalized aches and pains; Translations: [Generalized pain] Onset: 06-18-2022 Resolved: 06-18-2022 06-18-2022 Episodic Residual codes; unclassified (5 sources) Past history of procedure; Translations: [Other specified personal history presenting hazards to health] Onset: 12-11-2021 Episodic Spondylosis; intervertebral disc disorders; other back problems (20 sources) Neck pain; Translations: [Cervicalgia] Onset: 06-18-2022 Resolved: 06-18-2022 06-18-2022 Episodic Sprains and strains (20 sources) Whiplash injury to neck; Translations: [Sprain of neck] Onset: 06-18-2022 Resolved: 06-18-2022 06-18-2022 Episodic Superficial injury; contusion (14 sources) Contusion of knee; Translations: [Contusion of knee] Onset: 06-18-2022 Resolved: 06-18-2022 06-18-2022 Episodic Syncope (20 sources) Syncope; Translations: [Syncope and collapse] Onset: 06-18-2022 Resolved: 06-18-2022 10-28-2020 Episodic Unclassified (20 sources) Finding of menstrual bleeding; Translations: [Menstruation] Comment on above: age 13; Unclassified (8 sources) Onset: 08-29-2023 Resolved: 08-30-2024 08-29-2023 Unclassified (1 source) Acute pain of right shoulder 08-30-2024 Unclassified (1 source) Acute cough; Translations: [Acute cough] Onset: 03-29-2024 Viral infection (20 sources) Herpes zoster; Translations: [Infectious mononucleosis] Onset: 06-18-2022 Resolved: 06-18-2022 06-18-2022 Episodic NEGATED: Highlighted row has not occurred!Residual codes; unclassified (5 sources) Disease Episodic Results Test Name Value Interpretation Reference Range Facility BI MAMMO BILATERAL DIAGNOSTI C TOMOSYNTHESISon 09-06-2024 BI MAMMO BILATERAL DIAGNOSTIC TOMOSYNTHESIS Interpreted By: James Howard, STUDY: BI MAMMO BILATERAL DIAGNOSTIC TOMOSYNTHESIS; BI US BREAST LIMITED RIGHT; 09/06/2024 2:43 pm; 09/06/2024 3:08 pm ACCESSION NUMBER(S): [id number]; [id number] ORDERING CLINICIAN: LUCIA SIMMONS INDICATION: Signs/Symptoms:palpable 5 o'clock right breast lump/mass and right axillary swelling; Signs/Symptoms:palpable 5 o'clock breast lump/mass and right axillary swelling. COMPARISON: Digital mammograms dated 08/29/2023 TECHNIQUE: Mammography: CC and MLO 2D digital mammograms and digital breast tomosynthesis images were obtained of the bilateral breasts. 3-D volume images were reconstructed in 4 views at an independent workstation as 1 mm slices through the breasts in both the CC and MLO projections. A skin marker was placed at the site of palpable abnormality. Ultrasound: Multiple grayscale ultrasonographic images were obtained through the right breast in the region of palpable abnormality. FINDINGS: Mammography: Density: There are scattered areas of fibroglandular density. No discrete mass or focal asymmetry is identified. No suspicious microcalcifications or foci of architectural distortion are seen. There has been no significant change. This study was interpreted with CAD. Ultrasound: No discrete mass or ultrasonographic abnormality is seen in the region of palpable abnormality. IMPRESSION: No mammographic evidence of malignancy. BI-RADS CATEGORY: BI-RADS Category: 1 Negative. Recommendation: Annual Screening. Recommended Date: 1 Year. Laterality: Bilateral. Negative or benign mammogram and ultrasound should not preclude further evaluation of a suspicious clinical abnormality. MACRO: None Signed by: James Howard 09/10/2024 9:31 AM Dictation workstation: [id number] [facility] BI US BREAST LIMITED RIGHTon 09-06-2024 BI US BREAST LIMITED RIGHT Interpreted By: James Howard, STUDY: BI MAMMO BILATERAL DIAGNOSTIC TOMOSYNTHESIS; BI US BREAST LIMITED RIGHT; 09/06/2024 2:43 pm; 09/06/2024 3:08 pm ACCESSION NUMBER(S): [id number]; [id number] ORDERING CLINICIAN: LUCIA SIMMONS INDICATION: Signs/Symptoms:palpable 5 o'clock right breast lump/mass and right axillary swelling; Signs/Symptoms:palpable 5 o'clock breast lump/mass and right axillary swelling. COMPARISON: Digital mammograms dated 08/29/2023 TECHNIQUE: Mammography: CC and MLO 2D digital mammograms and digital breast tomosynthesis images were obtained of the bilateral breasts. 3-D volume images were reconstructed in 4 views at an independent workstation as 1 mm slices through the breasts in both the CC and MLO projections. A skin marker was placed at the site of palpable abnormality. Ultrasound: Multiple grayscale ultrasonographic images were obtained through the right breast in the region of palpable abnormality. FINDINGS: Mammography: Density: There are scattered areas of fibroglandular density. No discrete mass or focal asymmetry is identified. No suspicious microcalcifications or foci of architectural distortion are seen. There has been no significant change. This study was interpreted with CAD. Ultrasound: No discrete mass or ultrasonographic abnormality is seen in the region of palpable abnormality. IMPRESSION: No mammographic evidence of malignancy. BI-RADS CATEGORY: BI-RADS Category: 1 Negative. Recommendation: Annual Screening. Recommended Date: 1 Year. Laterality: Bilateral. Negative or benign mammogram and ultrasound should not preclude further evaluation of a suspicious clinical abnormality. MACRO: None Signed by: James Howard 09/10/2024 9:31 AM Dictation workstation: [id number] [facility] CT CARDIAC SCORINGon 023 CT CARDIAC SCORING Patient Name: NADIA ADDISON STUDY: CT CARDIAC SCORING; 10/28/2022 1:26 pm INDICATION: atypical chest pain E11.9: Type 2 diabetes mellitus. COMPARISON: CT chest 09/01/2022 ACCESSION NUMBER(S): [id number] ORDERING CLINICIAN: KAREEN SOFIA TECHNIQUE: Using prospective ECG gating, limited CT scan of the coronary arteries was performed without intravenous contrast. Coronary calcium scoring was performed according to the method of Agatston. FINDINGS: The score and distribution of calcium in the coronary arteries is as follows: LM: 0. LAD: 0. LCx: 0. RCA: 0. Total: 0. The visualized segments of the lungs are normally expanded. The visualized mid/lower ascending thoracic aorta measures 3.9 cm in diameter. The heart is normal in size. Trace pericardial effusion. Mildly prominent nonspecific anterior pericardial nodes up to 6 mm short axis. Suspected fatty liver. IMPRESSION: 1. Coronary artery calcium score of 0 *. 2. Mild prominence ascending thoracic aorta up to 3.9 cm. 3. Additional findings as above. *Coronary artery calcium scoring may be helpful in predicting the risk for future coronary heart disease events. According to the [employer] Clinical Expert Consensus Task Force, such testing provides important prognostic information in patients with more than one coronary heart disease risk factor. The coronary artery calcium score correlates with the annual risk of a non-fatal myocardial infarction or coronary heart disease . Coronary artery score Annual Risk 0-99 0.4% 100-399 1.3% >400 2.4% These three breakpoints correspond to lower, intermediate and high risk states for future coronary events. Such information should be used, along with appropriate clinical judgment, to make decisions regarding the intensity of risk factor management strategies to treat blood lipids and to modify other non-lipid coronary risk factors. Reference: Chaitanya P et al. Circulation. 2007; 115:402-426 Electronically signed by: JIE GALDAMEZ DO Normal [facility] CT Cardiac Scoringon 023 CT Cardiac Scoring Normal [address] Work Phone: Office Visit (Cardiology)on 10-14-2022 Follow-up visit Diagnoses/Problems Assessed Type 2 diabetes mellitus (250.00) (E11.9) Orders Type [address] Cardiac Scoring; Status:Hold For - Scheduling; Requested for:14Oct2022; Patient taking Metformin or Derivatives? : Yes Radiologist to Determine Optimal Study : Y What are the patient's signs and symptoms? : atypical chest pain Chief Complaint NADIA ADDISON is being seen for a cardiovascular evaluation . FU after tests. History of Present Illness I am seeing this patient today as a follow up visit for cardiovascular assessment. Patient is a 52-year-old diabetic non-smoker female with prior medical history significant for hypertension, diabetes, fibromyalgia, GERD, migraine, coming for cardiovascular assessment. Patient presented to the emergency department on August 2022 complaining of chest pain. She states that the pain was a burning sensation in the center of her chest, no radiation, lasted for a few minutes and was self relief. No alleviating or exacerbating symptoms. No prior history of PE or DVT. Patient states that she has an inhaler and had no improvement of symptoms with an inhaler. She denies chest pain, shortness of breath, palpitations, leg edema, lightheadedness, headaches, fever, chills, orthopnea, paroxysmal nocturnal dyspnea or syncope. Patient also reports other atypical chest pain events, but she states that those tingling sensations in her chest are more related to anxiety events. Of note, the patient had a friend that shortly after discovering heart failure (6 months younger than her), and therefore she got scary with this situation. The EKG today shows normal sinus rhythm with no signs of ACS. D-dimer 716, Troponins nl, BNP 20 CT chest with no signs of pulmonary embolism Stress test was negative for ischemia The echocardiogram showed normal LVEF with no wall motion abnormalities. Patient returns today feeling fine, no other complains. Chest pain deemed to be atypical. She denies chest pain, shortness of breath, palpitations, leg edema, lightheadedness, headaches, fever, chills, orthopnea, paroxysmal nocturnal dyspnea or syncope. Patient also reports other atypical chest pain events, but she states that those tingling sensations in her chest are more related to anxiety events. Active Problems Problems Chest pain (786.50) (R07.9) Cough (786.2) (R05.9) Encounter for screening mammogram for malignant neoplasm of breast (V76.12) (Z12.31) Fatigue (780.79) (R53.83) Fibromyalgia (729.1) (M79.7) Generalized anxiety disorder (300.02) (F41.1) GERD (gastroesophageal reflux disease) (530.81) (K21.9) Hypertension (401.9) (I10) Migraine without aura and without status migrainosus, not intractable (346.10) (G43.009) Screening for breast cancer (V76.10) (Z12.39) Screening for cervical cancer (V76.2) (Z12.4) Screening for colon cancer (V76.51) (Z12.11) ifobt Type 2 diabetes mellitus (250.00) (E11.9) Surgical History Problems History of Cystoscopy LEFT RPG AND STENT History of Dilation and curettage History of Liver biopsy Past Medical History Problems History of Encounter for screening mammogram for high-risk patient (V76.11) (Z12.31) 09/10/2020- WNL History of Essential hypertension, benign (401.1) (I10) History of Fall at home, initial encounter (E888.9,E849.0) (W19.XXXA,Y92.009) Resolved Date: 05 Oct 2021 History of mammogram (V15.89) (Z92.89) History of type 2 diabetes mellitus (V12.29) (Z86.39) Resolved Date: 02 Sep 2020 History of Menstruation age 13 History of Migraines (346.90) (G43.909) History of Normal vaginal delivery (650) (O80) 08/07/1991 40 weeks male 8lbs 5oz 02/18/1995 40 weeks femlae 8lbs 9oz Current Meds Medication NameInstruction Brynn CAPS Aspirin 81 MG Oral Tablet Delayed ReleaseTAKE 1 TABLET BY MOUTH EVERY DAY Atorvastatin Calcium 10 MG Oral TabletTAKE 1 TABLET AT BEDTIME. Calcium TABSTake 1 tablet daily Cyclobenzaprine HCl - 5 MG Oral TabletTAKE 1 TABLET 3 TIMES DAILY NEEDED. Farxiga 10 MG Oral TabletTAKE 1 TABLET BY MOUTH EVERY MORNING metFORMIN HCl - 1000 MG Oral TabletTAKE 1 TABLET TWICE DAILY. Metoprolol Succinate ER 50 MG Oral Tablet Extended Release 24 HourTAKE 1 TABLET DAILY. Multi Vitamin Oral TabletTAKE 1 TABLET DAILY. Omeprazole 20 MG Oral Capsule Delayed ReleaseTAKE 1 CAPSULE Daily Sertraline HCl - 100 MG Oral TabletTAKE 0.5 TABLET Daily Trulicity 3 MG/0.5ML Subcutaneous Solution Pen-injectorInject 3 mg weekly Vitamin C TABSTAKE 1 TABLET DAILY. Vitamin D TABSTAKE 1 TABLET DAILY. Vitamin E [id number] IU daily Allergies Medication Demerol TABS Hypotension;; Recorded By: Kaye Pena; 01/16/2019 1:45:52 PM azithromycin Diarrhea; Recorded By: Kaye Pena; 01/16/2019 1:45:52 PM erythromycin Abdominal pain; Recorded By: Kaye Pena; 01/16/2019 1:45:52 PM Flomax Itching; Swelling; Recorded By: Kaye Pena; 01/16/2019 1:45:52 PM sulfamethoxazole-trimethopr im Itching; Rash; Recorded (more content not included)... Normal Anytime DD Tobacco Screening.on 023 Fall risk assessment a) No falls within the last year [email or web address] Work Phone: Tobacco use status CP b) No [email or web address] Work Phone: Cardiac Stress Teston 2022 [place] [address] [phone], Exercise Stress Test Patient Name: NADIA ADDISON Ordering Physician: Study Date: 10/08/2022 Reading Physician: [id number] Mak MD MRN/PID: [id number] Supervising Physician: Shannan Mak MD Accession/Order#: [id number] Referring Physician: [id number] Taurus Mccoy MD Date of : 1970 PCP: [id number] Jd Brennan MD Gender: F Fellow: Admit Date: 10/08/2022 Fellow: Admission Status: Outpatient Plastics Nurse: Jignesh Unger SHAKE SAWYER, CCT Height: 167.64 cm Nurse: N/A Weight: 93.90 kg [place] Supervisor: N/A BSA: 2.03 m2 Technologist: BMI: 33.41 kg/m2 Additional Staff: Age: 52 years cc report to: Patient Location: [facility] Stress Lab cc report to: Study Type: Cardiac Stress Test Diagnosis/ICD: R07.9-Chest pain, unspecified Indication: Chest Pain Procedure/CPT: Stress Test Interpretation-36098; Stress Test Supervision-[id number] Falls Risk: Low: Patient has low risk for sustaining a fall; environmental safety interventions in place. Study Details: Correct procedure and correct patient verified verbally and with ID Band checked. Patient History: Hypertension and family history of coronary artery disease. Allergies: Bactrim, azithromycin, erythromycin, sulfa drugs, Flomax, Demerol, Imitrex, Zomig, Vicodin. Smoker: Never. Diabetes: Yes, managed with Oral medicine. BMI: Obese >30. Medications: Aspirin, atorvastatin, glucophage, metoprolol and sertraline,Trulicity,and Farxiga. The patient did not take medications as prescribed. Patient Performance: The patient exercised to stage II on a Brian protocol for 6 minutes and 15 seconds, achieving 7.4 METS. The peak heart rate achieved was 144 bpm, which was 86 % of the age predicted target heart rate of 168 bpm. The resting blood pressure was 121/91 mmHg with a heart rate of 76 bpm. The standing blood pressure was 120/90 mmHg with a heart rate of 82 bpm. The patient developed weakness during the stress exam. The symptoms resolved with rest. The blood pressure response was normal. The test was terminated due to: leg fatigue and musculoskeletal weakness, MPHR >85% and patient request. Baseline ECG: Resting ECG showed normal sinus rhythm with normal tracing. Stress ECG: Stress ECG showed sinus tachycardia, with no abnormal findings. Stress Stage Data: + +---+---- --+-------+ HR Sys BP Kaplan BP + +---+---- --+-------+ Baseline Resting 76 121 91 + +---+---- --+-------+ Baseline Standing 82 120 90 + +---+---- --+-------+ Stage I 103 158 68 + +---+---- --+-------+ Stage II 133 188 79 + +---+---- --+-------+ Stage III 144 + +---+---- --+-------+ Recovery ECG: Recovery ECG showed normal sinus rhythm, with no abnormal findings. The heart rate recovery was normal. + +---+------+--- ----+ HR Sys BP Kaplan BP + +---+------+--- ----+ Recovery I 123 + +---+------+--- ----+ Recovery II 102 154 92 + +---+------+--- ----+ Recovery IV 86 142 89 + +---+------+--- ----+ Baseline Echo: There are no regional wall motion abnormalities at baseline. Summary: 1. Baseline EKG shows normal sinus rhythm with no resting ST-T segment changes. 2. Patient exercised for 6 minutes 15 seconds achieving 7.4 METS. 3. Exercise capacity is below average for age. 4. Heart rate response to exercise is normal. Blood pressure response to exercise is normal. 5. With exercise no ST-T segment changes suggestive of ischemia or sustained ventricular arrhythmias are seen. 6. Exercise stress EKG is negative for ischemia. 7. Machado treadmill score is 6 (low risk). 8. Adequate level of stress achieved. [id number] Jaxon Mak MD Electronically signed on 10/08/2022 at 2:42:56 PM Final Normal [facility] Cardiac Stress Test -Cardiology -[address] Work Phone: Echocardiogramon 10-08-2022 Echocardiography [facility] nter [address] [place] [address] [phone], TRANSTHORACIC ECHOCARDIOGRAM REPORT Patient Name: NADIA Chu Reading Physician: [id number] Jaxon ADDISON MD Study Date: 10/08/2022 Referring Physician: [id number] Taurus Mccoy MD MRN/PID: [id number] PCP: Accession/Order#: [id number] Department Location: [facility] Echo Lab Date of : 1970 Fellow: Gender: F Nurse: Evelyn Sales RN Admit Date: [place] Supervisor: Tomas Nava [facility] Admission Status: Outpatient Additional Staff: Height: 165.10 cm CC Report to: Weight: 90.72 kg Study Type: Echocardiogram BSA: 1.98 m2 Blood Pressure: 118 /83 mmHg Diagnosis/ICD: R07.9-Chest pain, unspecified Indication: Procedure/CPT: Echo Complete w Full Doppler-[id number] Study Detail: The following Echo studies were performed: 2D, M-Mode, Doppler and color flow. Definity used as a contrast agent for endocardial border definition and agitated saline used as a contrast agent for intraseptal flow evaluation. Total contrast used for this procedure was 1.75cc mL via IV push. PHYSICIAN INTERPRETATION: Left Ventricle: Left ventricular systolic function is normal, with an estimated ejection fraction of 55-60%. There are no regional wall motion abnormalities. The left ventricular cavity size is normal. Spectral Doppler shows a normal pattern of left ventricular diastolic filling. Left Atrium: The left atrium is normal in size. A bubble study using agitated saline was performed. Bubble study is negative. Right Ventricle: The right ventricle is normal in size. There is normal right ventricular global systolic function. Right Atrium: The right atrium is normal in size. Aortic Valve: The aortic valve is trileaflet. There is no evidence of aortic valve regurgitation. The peak instantaneous gradient of the aortic valve is 10.1 mmHg. The mean gradient of the aortic valve is 5.0 mmHg. Mitral Valve: The mitral valve is normal in structure. There is no evidence of mitral valve regurgitation. Tricuspid Valve: The tricuspid valve is structurally normal. There is mild tricuspid regurgitation. Pulmonic Valve: The pulmonic valve is not well visualized. There is no indication of pulmonic valve regurgitation. Pericardium: There is no pericardial effusion noted. Aorta: The aortic root is normal. Systemic Veins: The inferior vena cava appears to be of normal size. There is IVC inspiratory collapse greater than 50%. CONCLUSIONS: 1. Left ventricular systolic function is normal with a 55-60% estimated ejection fraction. QUANTITATIVE DATA SUMMARY: 2D MEASUREMENTS: Normal Ranges: Ao Root d: 2.60 cm (2.0-3.7cm) LAs: 3.00 cm (2.7-4.0cm) IVSd: 1.10 cm (0.6-1.1cm) LVPWd: 0.71 cm (0.6-1.1cm) LVIDd: 3.52 cm (3.9-5.9cm) LVIDs: 2.30 cm LV Mass Index: 45.5 g/m2 LV % FS 34.7 % LA VOLUME: Normal Ranges: LA Vol A4C: 41.3 ml (22+/-6mL/m2) LA Vol A2C: 37.2 ml LA Vol BP: 40.7 ml LA Vol Index A4C: 20.9ml/m2 LA Vol Index A2C: 18.8 ml/m2 LA Vol Index BP: 20.6 ml/m2 LA Area A4C: 15.9 cm2 LA Area A2C: 14.5 cm2 LA Major [place] A4C: 5.2 cm LA Major [place] A2C: 4.8 cm LA Volume Index: 20.3 ml/m2 LA Vol A4C: 40.1 ml LA Vol A2C: 36.8 ml LV SYSTOLIC FUNCTION BY 2D PLANIMETRY (MOD): Normal Ranges: EF-A4C View: 51.6 % (>=55%) EF-A2C View: 57.0 % EF-Biplane: 53.2 % LV DIASTOLIC FUNCTION: Normal Ranges: MV Peak E: 0.51 m/s (0.7-1.2 m/s) MV Peak A: 0.71 m/s (0.42-0.7 m/s) E/A Ratio: 0.73 (1.0-2.2) MV lateral e' 0.10 m/s MV medial e' 0.08 m/s MITRAL VALVE: Normal Ranges: MV DT: 165 msec (150-240msec) AORTIC VALVE: Normal Ranges: AoV Vmax: 1.59 m/s (<=1.7m/s) AoV Peak P.1 mmHg (<20mmHg) AoV Mean P.0 mmHg (1.7-11.5mmHg) LVOT Max Tomas: 1.08 m/s (<=1.1m/s) AoV VTI: 31.00 cm (18-25cm) LVOT VTI: 23.40 cm LVOT Diameter: 1.60 cm (1.8-2.4cm) AoV Area, VTI: 1.52 cm2 (2.5-5.5cm2) AoV Area,Vmax: 1.37 cm2 (2.5-4.5cm2) AoV Dimensionless Index: 0.75 RIGHT VENTRICLE: RV Basal 3.57 cm RV Mid 2.59 cm RV Major 6.4 cm TAPSE: 19.2 mm RV s' 0.09 m/s TRICUSPID VALVE/RVSP: Normal Ranges: Peak TR Velocity: 2.54 m/s RV Syst Pressure: 28.8 mmHg (< 30mmHg) PULMONIC VALVE: Normal Ranges: PV Accel Time: 123 msec (>120ms) PV Max Tomas: 0.9 m/s (0.6-0.9m/s) PV Max P.1 mmHg [id number] Jaxon Mak MD Electronically signed on 10/08/2022 at 2:26:47 PM Final Normal [facility] Narrative Note - Outpatient- CPS for bubble study and definiton 10-08-2022 Narrative Note - Outpatient-CPS for bubble study and definit Narrative Note: Discipline/ClinicCPS for bubble study and definity Description Called to CPS to administer bubbles and to give definity. Started a 22g IV in the LAC. IV flushed easily. Administered bubble test times 1 and gave 1.75ml of definity as physics technician instructed. Once test completed IV flushed with NS then dc'ed with angiocath intact and dressing to site. Patient tolerated without complaint. Electronic Signatures: Evelyn Sales (RN) (Signed 08-Oct-2022 09:14) Authored: Narrative Note - OP Last Updated: 08-Oct-2022 09:14 by Evelyn Sales (RN) [facility] Chart Updateon 10-06-2022 Chart Update Chart Update Patient called our office stating that she was not going to start statins due to normal cholesterol results. Total 210 LDL 117 HDL 77 VLDL 16 Tri 94 I called the patient and had a thorough conversation with her. I explained the importance of statins in patients with hypertension and hyperlipidemia, and the importance for reducing the LDL levels ideally < 70. She appeared to understand it and will start the medication accordingly. Signatures Electronically signed by : Taurus Mccoy MD; Oct 06 2022 4:33PM EST (Author) Normal [facility] Office Visit (Cardiology)on 09-17-2022 Follow-up visit Diagnoses/Problems Assessed Chest pain (786.50) (R07.9) Orders Chest pain Start: Aspirin 81 MG Oral Tablet Delayed Release; TAKE 1 TABLET BY MOUTH EVERY DAY Cardiac Stress Test; Status:Hold For - Scheduling; Requested for:[id number]; Start: Atorvastatin Calcium 10 MG Oral Tablet; TAKE 1 TABLET AT BEDTIME Comprehensive Metabolic Panel; Status:Active; Requested for:[id number]; Echocardiogram; Status:Hold For - Scheduling; Requested for:[id number]; Lipid Panel; Status:Active; Requested for:[id number]; Chief Complaint NADIA ADDISON is being seen for a cardiovascular evaluation . chest pain. History of Present Illness I was requested by Dr. Brennan to evaluate this patient in consultation for cardiac assessment. Patient is a 52-year-old diabetic non-smoker female with prior medical history significant for hypertension, diabetes, fibromyalgia, GERD, migraine, coming for cardiovascular assessment. Patient presented to the emergency department on August 2022 complaining of chest pain. She states that the pain was a burning sensation in the center of her chest, no radiation, lasted for a few minutes and was self relief. No alleviating or exacerbating symptoms. No prior history of PE or DVT. Patient states that she has an inhaler and had no improvement of symptoms with an inhaler. She denies chest pain, shortness of breath, palpitations, leg edema, lightheadedness, headaches, fever, chills, orthopnea, paroxysmal nocturnal dyspnea or syncope. Patient also reports other atypical chest pain events, but she states that those tingling sensations in her chest are more related to anxiety events. Of note, the patient had a friend that shortly after discovering heart failure (6 months younger than her), and therefore she got scary with this situation. The EKG today shows normal sinus rhythm with no signs of ACS. D-dimer 716, Troponins nl, BNP 20 CT chest with no signs of pulmonary embolism Active Problems Problems Cough (786.2) (R05.9) Encounter for screening mammogram for malignant neoplasm of breast (V76.12) (Z12.31) Fatigue (780.79) (R53.83) Fibromyalgia (729.1) (M79.7) Generalized anxiety disorder (300.02) (F41.1) GERD (gastroesophageal reflux disease) (530.81) (K21.9) Hypertension (401.9) (I10) Migraine without aura and without status migrainosus, not intractable (346.10) (G43.009) Screening for breast cancer (V76.10) (Z12.39) Screening for cervical cancer (V76.2) (Z12.4) Screening for colon cancer (V76.51) (Z12.11) ifobt Type 2 diabetes mellitus (250.00) (E11.9) Surgical History Problems History of Cystoscopy LEFT RPG AND STENT History of Dilation and curettage History of Liver biopsy Past Medical History Problems History of Encounter for screening mammogram for high-risk patient (V76.11) (Z12.31) 09/10/2020- WNL History of Essential hypertension, benign (401.1) (I10) History of Fall at home, initial encounter (E888.9,E849.0) (W19.XXXA,Y92.009) Resolved Date: 05 Oct 2021 History of mammogram (V15.89) (Z92.89) History of type 2 diabetes mellitus (V12.29) (Z86.39) Resolved Date: 02 Sep 2020 History of Menstruation age 13 History of Migraines (346.90) (G43.909) History of Normal vaginal delivery (650) (O80) 08/07/1991 40 weeks male 8lbs 5oz 02/18/1995 40 weeks femlae 8lbs 9oz Current Meds Medication NameInstruction Brynn CAPS Calcium TABSTake 1 tablet daily Cyclobenzaprine HCl - 5 MG Oral TabletTAKE 1 TABLET 3 TIMES DAILY NEEDED. Farxiga 10 MG Oral TabletTAKE 1 TABLET BY MOUTH EVERY MORNING metFORMIN HCl - 1000 MG Oral TabletTAKE 1 TABLET TWICE DAILY. Metoprolol Succinate ER 50 MG Oral Tablet Extended Release 24 HourTAKE 1 TABLET DAILY. Multi Vitamin Oral TabletTAKE 1 TABLET DAILY. Omeprazole 20 MG Oral Capsule Delayed ReleaseTAKE 1 CAPSULE Daily Sertraline HCl - 100 MG Oral TabletTAKE 0.5 TABLET Daily Trulicity 3 MG/0.5ML Subcutaneous Solution Pen-injectorInject 3 mg weekly Vitamin C TABSTAKE 1 TABLET DAILY. Vitamin D TABSTAKE 1 TABLET DAILY. Vitamin E [id number] IU daily Allergies Medication Demerol TABS Hypotension;; Recorded By: Kaye Pena; 01/16/2019 1:45:52 PM azithromycin Diarrhea; Recorded By: Kaye Pena; 01/16/2019 1:45:52 PM erythromycin Abdominal pain; Recorded By: Kaye Pena; 01/16/2019 1:45:52 PM Flomax Itching; Swelling; Recorded By: Kaye Pena; 01/16/2019 1:45:52 PM sulfamethoxazole-trimethopr im Itching; Rash; Recorded By: Kaye Pena; 01/16/2019 1:45:52 PM Vicodin TABS Vomiting; Recorded By: Kaye Pena; 01/16/2019 1:45:52 PM Bactrim Recorded By: Nicole Redman; 01/17/2019 8:27:40 AM Imitrex Recorded By: Kaye Pena; 01/16/2019 1:45:52 PM Additional reactions - Yellowed vision 31-MAR-2015 17:41:30<$> Zomig Recorded By: Kaye Pena; 01/16/2019 1:45:52 PM Additional reactions - Yellowed vision 31-MAR-2015 17:41:30<$>; Yellow Family History Mother Family history of asthma (more content not included)... Normal [facility] APTTon 09-01-2022 aPTT Coag (Bld) [Time] 31 s Normal 27 - 38 [facility] Comment on above: Result Comment: Note new reference range as of 08/24/2022 at 10:00am. Performed By: #### C BCDF #### [place] [id number] BASIC METABOLIC PANELon 08-06 Anion gap [Moles/Vol] 14 mmol/L Normal 10 - 20 [facility] Comment on above: Performed By: #### C BCDF #### [place] [id number] Calcium [Mass/Vol] 9.4 mg/dL Normal 8.6 - 10.3 [facility] Comment on above: Performed By: #### C BCDF #### [address] [address] Chloride [Moles/Vol] 101 mmol/L Normal 98 - 107 [facility] Comment on above: Performed By: #### C BCDF #### [address] [address] Creatinine [Mass/Vol] 0.57 mg/dL Normal 0.50 - 1.05 [facility] Comment on above: Performed By: #### C BCDF #### [address] [address] eGFR FEMALE >90 Normal >90 [facility] Comment on above: Result Comment: CALC ULATIONS OF ESTIMATED GFR ARE PERFORMED USING THE 2020 CKD-EPI STUDY REFIT EQUATION WITHOUT THE RACE VARIABLE FOR THE IDMS-TRACEABLE CREATININE METHODS. https://jasn.asnjournals.org/content//ASN.028329405 8 Performed By: #### C BCDF #### [address] [address] Glucose [Mass/Vol] 147 mg/dL High 74 - 99 [facility] Comment on above: Performed By: #### C BCDF #### [address] [address] HCO3 (Bld) [Moles/Vol] 26 mmol/L Normal 21 - 32 [facility] Comment on above: Performed By: #### C BCDF #### [address] [address] Potassium [Moles/Vol] 4.2 mmol/L Normal 3.5 - 5.3 [facility] Comment on above: Performed By: #### C BCDF #### [address] [address] Sodium [Moles/Vol] 137 mmol/L Normal 136 - 145 [facility] Comment on above: Performed By: #### C BCDF #### [place] [id number] Urea nitrogen [Mass/Vol] 17 mg/dL Normal 6 - 23 [facility] Comment on above: Performed By: #### C BCDF #### [place] [id number] CBC AND DIFFERENTIALon 09-01 % AUTOMATED IMMATURE GRAN 0.1 % Normal 0.0 - 0.9 [facility] Comment on above: Result Comment: Vicenta ture Granulocyte Count (IG) includes promyelocytes, myelocytes and metamyelocytes but does not include bands. Percent differential counts (%) should be interpreted in the context of the absolute cell counts (cells/L). Performed By: #### C BCDF ####[address] [address] Basophils (Bld) [#/Vol] 0.04 10*3/uL Normal 0.00 - 0.10 [facility] Comment on above: Performed By: #### C BCDF ####[address] [address] Basophils/100 WBC (Bld) 0.5 % Normal 0.0 - 2.0 [facility] Comment on above: Performed By: #### C BCDF ####[address] [address] Eosinophils (Bld) [#/Vol] 0.19 10*3/uL Normal 0.00 - 0.70 [facility] Comment on above: Performed By: #### C BCDF ####[address] [address] Eosinophils/100 WBC (Bld) 2.6 % Normal 0.0 - 6.0 [facility] Comment on above: Performed By: #### C BCDF ####[address] [address] Erythrocyte distribution width (RBC) [Ratio] 14.6 % High 11.5 - 14.5 [facility] Comment on above: Performed By: #### C BCDF ####[address] [address] Hematocrit (Bld) [Volume fraction] 44.5 % Normal 36.0 - 46.0 [facility] Comment on above: Performed By: #### C BCDF ####[address] [address] Hemoglobin (Bld) [Mass/Vol] 13.6 g/dL Normal 12.0 - 16.0 [facility] Comment on above: Performed By: #### C BCDF ####[address] [address] Lymphocytes (Bld) [#/Vol] 3.59 10*3/uL Normal 1.20 - 4.80 [facility] Comment on above: Performed By: #### C BCDF ####[address] [address] Lymphocytes/100 WBC (Bld) 48.3 % Normal 13.0 - 44.0 [facility] Comment on above: Performed By: #### C BCDF ####[address] [address] MCHC (RBC) [Mass/Vol] 30.6 g/dL Low 32.0 - 36.0 [facility] Comment on above: Performed By: #### C BCDF ####[address] [address] MCV (RBC) [Entitic vol] 85 fL Normal 80 - 100 [facility] Comment on above: Performed By: #### C BCDF ####[address] [address] Monocytes (Bld) [#/Vol] 0.59 10*3/uL Normal 0.10 - 1.00 [facility] Comment on above: Performed By: #### C BCDF ####[address] [address] Monocytes/100 WBC (Bld) 7.9 % Normal 2.0 - 10.0 [facility] Comment on above: Performed By: #### C BCDF ####[address] [address] Neutrophils (Bld) [#/Vol] 3.01 10*3/uL Normal 1.20 - 7.70 [facility] Comment on above: Result Comment: Perc ent differential counts (%) should be interpreted in the context of the absolute cell counts (cells/L). Performed By: #### C BCDF ####[address] [address] Neutrophils/100 WBC (Bld) 40.6 % Normal 40.0 - 80.0 [facility] Comment on above: Performed By: #### C BCDF ####[address] [address] Platelets (Bld) [#/Vol] 213 10*3/uL Normal 150 - 450 [facility] Comment on above: Performed By: #### C BCDF ####[address] [address] RBC 5.22 x10E12/L High 4.00 - 5.20 [facility] Comment on above: Performed By: #### C BCDF ####[address] [address] WBC (Bld) [#/Vol] 7.4 10*3/uL Normal 4.4 - 11.3 [facility] Comment on above: Performed By: #### C BCDF ####[address] [address] CHEST 1 VIEWon 09-01-2022 CHEST 1 VIEW Patient Name: NADIA ADDISON STUDY: CHEST 1 VIEW; ; 09/01/2022 4:25 pm INDICATION: Chest Pain . COMPARISON: 03/05/2022 ACCESSION NUMBER(S): [id number] ORDERING CLINICIAN: KENIA GARCIA TECHNIQUE: Portable AP upright FINDINGS: The cardiac silhouette and mediastinal contours are not enlarged. Lungs are clear. No pleural effusions are present. Osseous structures appear grossly unchanged. IMPRESSION: No acute radiographic abnormality Electronically signed by: SHREYA CABRERA MD, NIDA Normal [facility] CORONAVIRUS 2019 BY PCRon SARS-CoV-2 (COVID-19) RNA SIMI+probe Ql (Unsp spec) Not detected Normal Not Detected [facility] Comment on above: Result Comment: . This test has received [facility] Emergency Use Authorization (EUA) and has been verified by [facility]. This test is only authorized for the duration of time that circumstances exist to justify the authorization of the emergency use of in vitro diagnostic tests for the detection of SARS-CoV-2 virus and/or diagnosis of COVID-19 infection under section 564(b)(1) of the Act, 21 U.S.C. 360bbb-3(b)(1), unless the authorization is terminated or revoked sooner. [facility] is certified under CLIA-88 as qualified to perform high complexity testing. Testing is performed in the [facility] laboratory located at [address] [place] [address]. SARS-CoV-2/Flu/RSV Multiplex Test: Fact sheet for providers: https://www.fda.gov/media/602583/download Fact sheet for patients: https://www.fda.gov/media/455508/download Performed By: #### C OV19 #### [place] [address] Lab Specimen Source Nasal, Nasopharyngeal Normal [facility] Comment on above: Performed By: #### C OV19 #### [place] [address] CT ANGIO CHEST FOR PEon - CT ANGIO CHEST FOR PE Patient Name: NADIA ADDISON STUDY: CT ANGIO CHEST FOR PE; 09/01/2022 6:14 pm INDICATION: burning sensation chest, pleuritic pain . COMPARISON: None. ACCESSION NUMBER(S): [id number] ORDERING CLINICIAN: KENIA GARCIA TECHNIQUE: Contiguous axial images of the chest were obtained after the intravenous administration of 90 mL Omnipaque 350. Coronal and sagittal reformatted images were obtained from the axial images. MIPS of the chest were also performed and reviewed and confirm the findings of the examination. FINDINGS: No axillary, mediastinal, hilar lymphadenopathy. The heart is borderline in size. No significant pericardial effusion. No evidence of acute central, main, lobar or proximal segmental pulmonary embolism. Bilateral subsegmental atelectasis. No significant pleural effusion. No pneumothorax. Limited evaluation of the upper abdomen. Mild degenerative change of the thoracic spine. IMPRESSION: No evidence of acute pulmonary embolism. No evidence of pneumonia. Electronically signed by: ELINOR GRUBER MD [facility] Covid 19 Resultson 3 SARS-CoV-2 (COVID-19) RNA SIMI+probe Ql (Unsp spec) NEGATIVE COVID-19 Test Coronaviruses are common world-wide and are the cause of many common colds. SARS-COV2 is a new coronavirus that began circulating worldwide in 2019 so we are calling it COVID-19. It has been estimated that four out of five patients with COVID-19 will recover at home without the need for medical attention. Symptoms of COVID-19 may include cough, fever, shortness of breath, loss of taste or smell and other flu-like symptoms including chills, sore muscles, sore throat, and headache. Severe illness is more common in older people and people with other health problems such as high blood pressure, obesity, and immune system problems. If the test is positive, you have COVID-19. You will be contacted by the ordering physicians office and instructed to remain on home isolation, in accordance with CDC guidelines. You may also be contacted by the [facility] to see if any of your close contacts may have been exposed to the virus and need to quarantine. If the test is negative, you likely do not have COVID-19 at this time, but you still may have a different illness that can spread to other people (like Influenza, or the Flu) and could still be at risk for getting COVID-19. We recommend that you stay away from other people to limit the spread of illness until your symptoms are improving and you are fever-free for 24 hours without the use of fever lowering medications such as acetaminophen or ibuprofen. No test is 100% accurate so if you are still concerned you may have COVID-19, talk to your doctor about the need to continue to stay away from others. Medicines Unless your provider told you not to use the following: Acetaminophen (Tylenol and others) is generally safe. Anti-inflammatory medications, such as Ibuprofen (Advil or Motrin) or Naproxen (Aleve) can also be used. Fxqs-vvx-oduamrc cough and cold medicines can be used according to the instructions on the package. Some azyd-wek-baeuvbf medicines also contain acetaminophen. Make sure you are not taking more than your recommended dose. For those not hospitalized, there is no specific treatment available for this illness. Antibiotics do not treat Coronaviruses. Follow-Up Follow up with your doctor by scheduling a virtual visit or consider follow-up at one of our urgent care fever clinics. If you are having difficulty breathing, or are very weak and having difficulty standing, this is a medical emergency. Call 911 or have someone take you to the nearest emergency room immediately. If possible, wear a facemask. Additional guidance from the CDC for patients who tested POSITIVE for COVID-19 How to isolate: Isolate yourself in a specific room at home and limit your contact with others. Use a separate bathroom from other members of the household, when possible. Leave home only to get essential medical care. Do not go to work, school or public areas. Avoid using public transportation, ride-sharing, or taxis. Restrict contact with pets and other animals. If you must care for your pet or be around animals while you are sick, wash your hands before and after your interaction and wear a facemask. Make sure that shared spaces in the home have good airflow, such as by an air conditioner or an opened window, weather permitting. Personal Hygiene Procedures: Wear a face mask when in the same room as other people or pets. If a face mask interferes with your breathing, others should wear a mask when sharing space with you. Frequent hand-washing: wash your hands with soap and water for at least 20 seconds. If soap and water are not available, use alcohol-based hand disposal worker. Avoid touching your eyes, nose, and mouth with unwashed hands. Household Hygiene Procedures: Avoid sharing personal household items such as dishes, glassware, cups, eating utensils, towels or bedding with other people or pets in your home. After use, these items should be washed with soap and hot water. Disinfect all high-touch surfaces every day with antibacterial cleaning solutions such as Lysol wipes, bleach, cleansers, etc. High-touch surfaces include tabletops, doorknobs, bathroom fixtures, toilets, phones, keyboards, tablets and bedside tables. Immediately clean any surfaces that may have blood, poop or body fluids on them, using antibacterial cleaning solutions such as Lysol wipes, bleach, cleansers, etc. If clothing or bedding come into contact with blood, poop or body fluids, they should be washed immediately. Follow the directions on the laundry detergent and clothing labels but hot water is recommended when possible. Stopping home isolation precautions: If possible, consult your doctor before stopping home isolation precautions. According to the CDC, you can discontinue home isolation precautions when you have met both of these criteria: Your fever and respiratory symptoms have been gone for 24 luis felipe (more content not included)... Normal [facility] D-DIMER, VTE EXCLUSIONon D-DIMER, VTE EXCLUSION 716 ng/mL FEU Abnormal < or = 500 [facility] Comment on above: Result Comment: The VTE Exclusion D-Dimer assay is reported in ng/mL Fibrinogen Equivalent Units (FEU). Per manufacturers instructions for use, a value of less than 500 ng/mL (FEU) may help to exclude DVT or PE in outpatients when the assay is used with a clinical pretest probability assessment. (AEMR must utilize and document eCalc Wells Score Deep Vein Thrombosis Risk for DVT exclusion only; Emergency Department should utilize Guidelines for Emergency Department Use of the VTE Exclusion D-Dimer and Clinical Pretest probability assessment model for DVT or PE exclusion.) Performed By: #### D IMEX ####[facility] [place] [address] HEPATIC FUNCTION PANELon Albumin [Mass/Vol] 4.4 g/dL Normal 3.4 - 5.0 formerly [facility] Comment on above: Performed By: #### C BCDF #### [address] [address] ALP [Catalytic activity/Vol] 74 U/L Normal 33 - 110 [facility] Comment on above: Performed By: #### C BCDF #### [address] [address] ALT [Catalytic activity/Vol] 21 U/L Normal 7 - 45 [facility] Comment on above: Result Comment: Nadya ents treated with Sulfasalazine may generate falsely decreased results for ALT. Performed By: #### C BCDF #### [address] [address] AST [Catalytic activity/Vol] 18 U/L Normal 9 - 39 [facility] Comment on above: Performed By: #### C BCDF #### [address] [address] Bilirubin [Mass/Vol] 0.5 mg/dL Normal 0.0 - 1.2 [facility] Comment on above: Performed By: #### C BCDF #### [address] [address] Bilirubin.indirect [Mass/Vol] 0.1 mg/dL Normal 0.0 - 0.3 [facility] Comment on above: Performed By: #### C BCDF #### [address] [address] Protein [Mass/Vol] 7.0 g/dL Normal 6.4 - 8.2 formerly [facility] Comment on above: Performed By: #### C BCDF #### [address] [address] LIPASEon 09-01-2022 Lipase [Catalytic activity/Vol] 56 U/L Normal 9 - 82 [facility] Comment on above: Result Comment: Selam puncture immediately after or during the administration of Metamizole may lead to falsely low results. Testing should be performed immediately prior to Metamizole dosing. Z-uptvbf-n-benzoquinone imine (metabolite of Acetaminophen) will generate erroneously low results in samples for patients that have taken toxic doses of acetaminophen. Performed By: #### L IPAS #### [address] [address] MAGNESIUMon 09-01-2022 Magnesium [Mass/Vol] 1.87 mg/dL Normal 1.60 - 2.40 [facility] Comment on above: Performed By: #### M G ####[address] [address] PT/INRon 09-01-2022 PT Coag (PPP) [Time] 11.4 s Normal 9.8 - 12.8 [facility] Comment on above: Result Comment: Note new reference range as of 08/24/2022 at 10:00am. Performed By: #### P TINR #### [address] [address] PT, INR 1.0 Normal 0.9 - 1.1 [facility] Comment on above: Performed By: #### P TINR #### [address] [address] Provider Note - ED v3on 08-06 Provider Note - ED v3 Provider Note: Results/Vital Signs: Pediatric Clinical Scoring (JAMIE) is no recent JAMIE charted on this account Chart Review: ED NOTES ED NOTES: ====HPI==== Patient is a 52-year-old female who presents to the emergency department with a chief complaint of chest tightness/burning. She states that around 10:00 this morning she noticed some burning in the center of her chest. She denied the pain radiating to her arm or jaw. She denies shortness of breath but states that she feels as if she cannot get a deep breath. She states that the burning in her chest has worsened and has now progressed to her her midepigastric region. She describes the pain as a burning sensation. Patient is a diabetic and has a hx of hypertension. She does not smoke. No hx of PE or DVT. No alleviating or exacerbating symptoms. Patient states that she has an inhaler and had no improvement of symptoms with an inhaler. PMHX: HTN, Diabetes, fibromyalgia, fatty liver Social HX: Denies TOBACCO Denies ETOH Denies DRUGS ====Review of Systems==== 10 point system review is negative except for those specifically mentioned in history of present illness ====Physical Exam==== Constitutional/General: Alert and oriented x3, well appearing, nontoxic, and in NAD. Head: Normocephalic and atraumatic. Eyes: PERRL, EOMI, conjunctive normal, sclera nonicteric, subconjunctival layer is pink. Mouth: Oropharynx clear, handling secretions, no trismus, no asymmetry of the posterior oropharynx or uvular edema Neck: Supple, full ROM, non tender to palpation in the midline, no stridor, no crepitus, no meningeal signs. Trachea at midline. Respiratory: Lungs clear to auscultation bilaterally, no wheezes, rales, or rhonchi, not in respiratory distress. Cardiovascular: Regular rate, regular rhythm, no murmurs, gallops, or rubs, 2+ distal pulses. Chest: normal chest wall movement GI: Abdomen soft, mild midepigastric tenderness. No tenderness otherwise. no organomegaly, no palpable masses, no rebound, guarding, or rigidity. Musculoskeletal: Moves all extremities x4, warm and well perfused, no clubbing, cyanosis, or edema, cap refill <3 seconds Integument: Skin warm and dry, no rashes. Neurologic: No focal deficits Psychiatric: Normal affect. ====ED Course and Medical Decision Making==== See MDM section for review of findings & plan of care. Portions of this note were dictated by speech recognition. An attempt at proof reading was made to minimize errors. Minor errors in senior research consultant may be present. Please call if questions.. HISTORY OF PRESENTING ILLNESS NADIA is a 52 year old Female and was seen by me at 01-Sep-2022 16:03 for a chief complaint of chest pain (Patient complains of chest tightness since 10am that worsened around noon, tried to use her inhaler without improvement. rates pain 4/10.)(1). Triage Information: Most recent Vital Sign Value Date Temp (F): 97.4 09-01-2022 16:01 Temp (C): 36.3 09-01-2022 16:01 Heart Rate (beats/min): 78 09-01-2022 16:01 Respirations (breaths/min): 17 06-28-2023 16:01 SpO2 (%): 98 09-01-2022 16:01 BP Systolic (mm Hg): 145 09-01-2022 16:01 BP Diastolic (mm Hg): 88 09-01-2022 16:01 PAST MEDICAL HISTORY ALLERGIES/INTOLERANCES: Allergy Allergen: erythromycin Type: Drug Reaction: Other Allergen: Biaxin Type: Drug Reaction: Hives/Urticaria Allergen: Zithromax Z-Kodi Type: Drug Reaction: Other Allergen: Bactrim Type: Drug Reaction: Hives/Urticaria Allergen: Zomig Type: Drug Reaction: Other Allergen: Demerol Type: Drug Reaction: Unknown Allergen: Imitrex Type: Drug Reaction: Unknown HEALTH HISTORY: No documented data. OUTPATIENT MEDICATIONS: Home Medications Review Status for Reconciliation: Complete Med Status: Patient Currently Takes Medications Drug Name: Toprol-XL 50 mg oral tablet, extended release Instructions: 1 tab(s) orally once a day Drug Name: Brynn 180 mg oral tablet Instructions: 1 tab(s) orally once a day Drug Name: omeprazole 20 mg oral delayed release capsule Instructions: 1 cap(s) orally once a day Drug Name: vitamin E 400 intl units oral capsule Instructions: 1 cap(s) orally once a day Drug Name: Multiple Vitamins oral tablet Instructions: 1 tab(s) orally once a day Drug Name: albuterol 90 mcg/inh inhalation aerosol Instructions: 2 puff(s) inhaled 2 times a day as needed for cough Drug Name: Trulicity Pen 3 mg/0.5 mL subcutaneous solution Instructions: 1 applicatorful subcutaneous once a week // ON SUNDAYS Drug Name: Zoloft 100 mg oral tablet Instructions: 1 tab(s) orally once a day Drug Name: Farxiga 10 mg oral tablet Instructions: 1 tab(s) orally once a day Drug Name: metFORMIN 1000 mg oral tablet Instructions: 1 tab(s) orally 2 times a day Drug Name: Vitamin B12 1000 mcg oral tablet Instructions: 1 tab(s) orally once a day (more content not included)... Normal [facility] Risk Screen - Adult Emergenc n 09-01-2022 Risk Screen - Adult Emergency Preferred Language: Preferred Language: Preferred Language for Discussing Health Care (patient/designee)Uruguayan Patient Preferred Pharmacy: Patient Preferred Pharmacy Statement: I have reviewed and updated the patient's preferred pharmacy selection for today's visit. Advanced Directives: Advance Directive/DNRno Advance Directive Information Givenpatient/family declined Family Violence Adult: Abuse Screen: Are you or have you been threatened or abused physically, emotionally, or sexually by anyoneno Learning Assessment (Patient): Learning Assessment (Patient): Patient is Able to be Assessed for Learningyes Factors Influencing Readiness to Learninterest in learning Factors that Impact Ability to Learnnone Devices/Methods Used to Communicatenone Learning Preferencesverbal instruction Cultural Considerationsnone Developmental Considerationsnone Church Considerationsnone Learning Assessment (Other Learner): Learning Assessment (Other Learner): Other learner availableno Pressure Injury/TB/Substance: Pressure Injury: Pressure Injury Present on Admissionno Do you have a coughno Smoking Statusnever smoker Alcohol Usedenies Drug Usedenies Admission Risk Screen: Significant IndicatorsComplete CAGE: CAGE: Is this an injured patient at a Tra[place] Center [place]/[place]): no Electronic Signatures: Eli Kaiser (BASHIR) (Signed 01-Sep-2022 16:06) Authored: Preferred Language, Patient Preferred Pharmacy, Advanced Directives, Family Violence Adult, Learning Assessment (Patient), Learning Assessment (Other Learner), Pressure Injury/TB/Substance, Pressure Injury, CAGE Last Updated: 01-Sep-2022 16:06 by Eli Kaiser (BASHIR) Normal [facility] TROPONIN I, HIGH SENSITIVITY on 09-01-2022 TROPONIN I, HIGH SENSITIVITY 3 ng/L Normal 0 - 13 [facility] Comment on above: Result Comment: . Less than 99th percentile of normal range cutoff- Female and children under 18 years old <14 ng/L; Male <21 ng/L: Negative Repeat testing should be performed if clinically indicated. . Female and children under 18 years old 14-50 ng/L; Male 21-50 ng/L: Consistent with possible cardiac damage and possible increased clinical risk. Serial measurements may help to assess extent of myocardial damage. . >50 ng/L: Consistent with cardiac damage, increased clinical risk and myocardial infarction. Serial measurements may help assess extent of myocardial damage. . NOTE: Children less than 1 year old may have higher baseline troponin levels and results should be interpreted in conjunction with the overall clinical context. . NOTE: Troponin I testing is performed using a different testing methodology at [facility] than at other [facility]. Direct result comparisons should only be made within the same method. Performed By: #### C BC #### [address] [address] TROPONIN I, HIGH SENSITIVITY 3 ng/L Normal 0 - 13 [facility] Comment on above: Result Comment: . Less than 99th percentile of normal range cutoff- Female and children under 18 years old <14 ng/L; Male <21 ng/L: Negative Repeat testing should be performed if clinically indicated. . Female and children under 18 years old 14-50 ng/L; Male 21-50 ng/L: Consistent with possible cardiac damage and possible increased clinical risk. Serial measurements may help to assess extent of myocardial damage. . >50 ng/L: Consistent with cardiac damage, increased clinical risk and myocardial infarction. Serial measurements may help assess extent of myocardial damage. . NOTE: Children less than 1 year old may have higher baseline troponin levels and results should be interpreted in conjunction with the overall clinical context. . NOTE: Troponin I testing is performed using a different testing methodology at [facility] than at other [facility]. Direct result comparisons should only be made within the same method. Performed By: #### [facility] #### [address] [address] TROPONIN I, HIGH SENSITIVITY 3 ng/L Normal 0 - 13 [facility] Comment on above: Result Comment: . Less than 99th percentile of normal range cutoff- Female and children under 18 years old <14 ng/L; Male <21 ng/L: Negative Repeat testing should be performed if clinically indicated. . Female and children under 18 years old 14-50 ng/L; Male 21-50 ng/L: Consistent with possible cardiac damage and possible increased clinical risk. Serial measurements may help to assess extent of myocardial damage. . >50 ng/L: Consistent with cardiac damage, increased clinical risk and myocardial infarction. Serial measurements may help assess extent of myocardial damage. . NOTE: Children less than 1 year old may have higher baseline troponin levels and results should be interpreted in conjunction with the overall clinical context. . NOTE: Troponin I testing is performed using a different testing methodology at [facility] than at other [facility]. Direct result comparisons should only be made within the same method. Performed By: #### T [facility] #### [id number] [place] [address] Triage - EDon 09-01-2022 Triage - ED Quick Triage: Are You no Have You Given In The Last 6 Weeksno Are You Currently Breastfeedingno Chart Review: PRIMARY ASSESSMENT NADIA ADDISON's primary assessment is Within Defined Limits. The airway is open and patent. Breathing spontaneous and unlabored with clear breath sounds bilaterally. Circulation is normal with good peripheral pulses. Skin is warm and dry and color is normal for race. ARRIVAL INFORMATION Means of Arrival: Ambulatory Mode of Arrival: private vehicle Arrival From: home Accompanied By: self Language: Spoken Language Preferred: Uruguayan CHIEF COMPLAINT NADIA ADDISON is a Female patient with a chief complaint of chest pain (Patient complains of chest tightness since 10am that worsened around noon, tried to use her inhaler without improvement. rates pain 4/10.). Triage Date/Time: 01-Sep-2022 15:55 JAMES: 2 Pain Rating (0-10): 4 = Moderate Vital Signs: Temperature: 97.4F ( 36.3C) taken temporal Blood Pressure: 145/88 Mean: Heart Rate: 78 Respiratory Rate: 17 Pulse Oximetry: 98% on room air, no respiratory support. Height: 5 feet 5.00 inches. 165.1 CM Weight: 200.1 pounds. Calculated 90.8 kg. (stated) Calculated BMI (kg/m2): 33.311 Calculated BSA (m2) 2.04 Andrew Coma Scale: Best Eye Response: (E4) spontaneous Best Motor Response: (M6) obeys commands Best Verbal Response: (V5) oriented Andrew Score: 15 Allergies: yes Mask applied: yes Patient has homicidal thoughts: no Risk Screens Suicide Risk Screen In the Past Month: Have you wished you were or wished you could go to sleep and not wake up no In the Past Month: Have you had any actual thoughts of killing yourself no In Your Lifetime: Have you ever done anything, started to do anything, or prepared to do anything to end your life no Luevano Fall Scale Screening Has the patient fallen before (or is the patient in the ED as a result of a fall) has not had a fall Does the patient have an impaired gait does not have impaired gait Is the patient cognitively impaired not cognitively impaired Interventions: Luevano Fall Interventions: LOW INTERVENTIONS: *patient oriented to surroundings and call system, * patient/family falls education completed and documented, *patients fall status communicated during bedside handoff, *whiteboard updated, *mode of toileting discussed with patient, *bed in low position with brakes locked, *call light in reach, * non-skid footwear TRAVEL HISTORY Travel History Coronavirus Screening: no exposure or symptoms Travel Exposure History: NO travel to International locations in the past 30 days PAIN Pain Scale Used: ASH Pain Rating (0-10): 4 = Moderate Past Medical History: Past Medical History Reviewedyes Electronic Signatures: Eli Kaiser (RN) (Signed 01-Sep-2022 16:03) Entered: Risk Screens, Pain, Arrival, ABCD, Travel History, Chart Review, Scores, Past Medical History Authored: Quick Triage, Risk Screens, Pain, Arrival, ABCD, Travel History, Chart Review, Scores, Past Medical History Last Updated: 01-Sep-2022 16:03 by Eli Kaiser (RN) [facility] Office Visit (Primary Care T xt/Forms)on 03-22-2022 Follow-up visit Diagnoses/Problems Assessed Hypertension (401.9) (I10) Type 2 diabetes mellitus (250.00) (E11.9) Dizziness (780.4) (R42) Orders Hypertension Renew: Metoprolol Succinate ER 50 MG Oral Tablet Extended Release 24 Hour; TAKE 1 TABLET DAILY Type 2 diabetes mellitus Renew: Farxiga 10 MG Oral Tablet; TAKE 1 TABLET BY MOUTH EVERY MORNING Comprehensive Metabolic Panel; Status:Active; Requested for:[id number]; Renew: metFORMIN HCl - 1000 MG Oral Tablet; TAKE 1 TABLET TWICE DAILY Hemoglobin A1C; Status:Active; Requested for:[id number]; Chief Complaint 6MO FU- PT HAS BEEN UNABLE TO GET 3MG TRULICITY SO HASNT BEEN ON IT FOR 1WK History of Present Illness trulicity 3 mg not make a change in A1c. Continue the 3 mg Trulicity if we can get it in. It is on backorder. If not we will have to cut down to 1.5 mg weekly. Changed to Farxiga 10 mg daily Changed to metformin 1000 mg twice a day Lab and office visit in 3 months Diabetes Type II - Takes and tolerates medications. No hypoglycemia. Counseled on diet with low carbohydrate intake, weight loss and increased activity levels/exercise. Hypertension - Takes medication without side effects. No CP/SOB/Palpitations. Follows a no added salt diet. Counseled diet, activity and weight loss. Review of Systems Constitutional: No weakness, No fatigue. Eye: No blurring, No visual disturbances. Respiratory: No shortness of breath, + cough. Cardiovascular: No chest pain, No palpitations. Gastrointestinal: No nausea, No diarrhea, No constipation. Musculoskeletal: No joint pain, No muscle pain. Integumentary: No rash, No breakdown. Neurologic: Alert and oriented X4, No headache. Psychiatric: No irritability, No sleeping problems. 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) Ankle fracture, right (824.8) (S82.891A) Body aches (780.96) (R52) Candidiasis (112.9) (B37.9) Class 1 obesity with body mass index (BMI) of 33.0 to 33.9 in adult (278.00,V85.33) (E66.9,Z68.33) Contusion of left knee, initial encounter (924.11) (S80.02XA) Cough (786.2) (R05.9) COVID-19 (079.89) (U07.1) Dizziness (780.4) (R42) Encounter for screening mammogram for malignant neoplasm of breast (V76.12) (Z12.31) Enlarged lymph node in neck (785.6) (R59.0) Extreme obesity (278.00) (E66.8) Fall, in, on, steps, initial encounter (E880.9) (W10.8XXA) Fatigue (780.79) (R53.83) Fatty liver (571.8) (K76.0) Fibromyalgia (729.1) (M79.7) Generalized anxiety disorder (300.02) (F41.1) GERD (gastroesophageal reflux disease) (530.81) (K21.9) Hypertension (401.9) (I10) Infectious mononucleosis (075) (B27.90) Migraine without aura and without status migrainosus, not intractable (346.10) (G43.009) Neck pain (723.1) (M54.2) Non-recurrent acute serous otitis media of both ears (381.01) (H65.03) Numbness (782.0) (R20.0) Right ankle swelling (719.07) (M25.471) Right leg swelling (729.81) (M79.89) Screening for breast cancer (V76.10) (Z12.39) Screening for cervical cancer (V76.2) (Z12.4) Screening for colon cancer (V76.51) (Z12.11) Shingles (053.9) (B02.9) Sore throat (462) (J02.9) Sprain of other ligament of right ankle, initial encounter (845.09) (S93.491A) Syncope (780.2) (R55) Whiplash, initial encounter (847.0) (S13.4XXA) Past Medical History Problems History of Encounter for screening mammogram for high-risk patient (V76.11) (Z12.31) History of Essential hypertension, benign (401.1) (I10) History of Fall at home, initial encounter (E888.9,E849.0) (W19.XXXA,Y92.009) History of mammogram (V15.89) (Z92.89) History of type 2 diabetes mellitus (V12.29) (Z86.39) History of Menstruation History of Migraines (346.90) (G43.909) History of Normal vaginal delivery (650) (O80) Surgical History Problems History of Cystoscopy History of Dilation and curettage Family History Mother Family history of asthma (V17.5) (Z82.5) Family history of hypertension (V17.49) (Z82.49) Father Family history of diabetes mellitus (V18.0) (Z83.3) Child Family history of asthma (V17.5) (Z82.5) Grandparent Family history of cerebrovascular accident (CVA) (V17.1) (Z82.3) Family history of coronary artery disease (V17.3) (Z82.49) Family history of diabetes mellitus (V18.0) (Z83.3) Family history of hypertension (V17.49) (Z82.49) Social History Problems Consumes alcohol occasionally (V49.89) (Z78.9) Daily caffeinated coffee consumption Does not have living will Does not use illicit drugs (V49.89) (Z78.9) Never chewed tobacco (V49.89) (Z78.9) Never smoked tobacco (V49.89) (Z78.9) Sexually active Current Meds Medication NameInstruction Brynn CAPS Calcium TABSTake 1 tablet daily Cyclobenzaprine HCl - 5 MG Oral TabletTAKE 1 TABLET 3 TIMES DAILY NEEDED. Dexamethasone 4 MG Oral TabletTake 1 tablet twice daily Farxiga 10 MG Oral TabletTAKE 1 TABLET BY MOUTH EVERY MORNING Fluconazole 150 MG Oral TabletTAKE 1 TABLET 1 (more content not included)... Normal [facility] Covid 19 Resultson 2 SARS-CoV-2 (COVID-19) RNA SIMI+probe Ql (Unsp spec) NEGATIVE COVID-19 Test Coronaviruses are common world-wide and are the cause of many common colds. SARS-COV2 is a new coronavirus that began circulating worldwide in 2019 so we are calling it COVID-19. It has been estimated that four out of five patients with COVID-19 will recover at home without the need for medical attention. Symptoms of COVID-19 may include cough, fever, shortness of breath, loss of taste or smell and other flu-like symptoms including chills, sore muscles, sore throat, and headache. Severe illness is more common in older people and people with other health problems such as high blood pressure, obesity, and immune system problems. If the test is positive, you have COVID-19. You will be contacted by the ordering physicians office and instructed to remain on home isolation, in accordance with CDC guidelines. You may also be contacted by the [facility] to see if any of your close contacts may have been exposed to the virus and need to quarantine. If the test is negative, you likely do not have COVID-19 at this time, but you still may have a different illness that can spread to other people (like Influenza, or the Flu) and could still be at risk for getting COVID-19. We recommend that you stay away from other people to limit the spread of illness until your symptoms are improving and you are fever-free for 24 hours without the use of fever lowering medications such as acetaminophen or ibuprofen. No test is 100% accurate so if you are still concerned you may have COVID-19, talk to your doctor about the need to continue to stay away from others. Medicines Unless your provider told you not to use the following: Acetaminophen (Tylenol and others) is generally safe. Anti-inflammatory medications, such as Ibuprofen (Advil or Motrin) or Naproxen (Aleve) can also be used. Yboz-wdj-mimscgp cough and cold medicines can be used according to the instructions on the package. Some iuxz-fen-yxyifmb medicines also contain acetaminophen. Make sure you are not taking more than your recommended dose. For those not hospitalized, there is no specific treatment available for this illness. Antibiotics do not treat Coronaviruses. Follow-Up Follow up with your doctor by scheduling a virtual visit or consider follow-up at one of our urgent care fever clinics. If you are having difficulty breathing, or are very weak and having difficulty standing, this is a medical emergency. Call 911 or have someone take you to the nearest emergency room immediately. If possible, wear a facemask. Additional guidance from the CDC for patients who tested POSITIVE for COVID-19 How to isolate: Isolate yourself in a specific room at home and limit your contact with others. Use a separate bathroom from other members of the household, when possible. Leave home only to get essential medical care. Do not go to work, school or public areas. Avoid using public transportation, ride-sharing, or taxis. Restrict contact with pets and other animals. If you must care for your pet or be around animals while you are sick, wash your hands before and after your interaction and wear a facemask. Make sure that shared spaces in the home have good airflow, such as by an air conditioner or an opened window, weather permitting. Personal Hygiene Procedures: Wear a face mask when in the same room as other people or pets. If a face mask interferes with your breathing, others should wear a mask when sharing space with you. Frequent hand-washing: wash your hands with soap and water for at least 20 seconds. If soap and water are not available, use alcohol-based hand disposal worker. Avoid touching your eyes, nose, and mouth with unwashed hands. Household Hygiene Procedures: Avoid sharing personal household items such as dishes, glassware, cups, eating utensils, towels or bedding with other people or pets in your home. After use, these items should be washed with soap and hot water. Disinfect all high-touch surfaces every day with antibacterial cleaning solutions such as Lysol wipes, bleach, cleansers, etc. High-touch surfaces include tabletops, doorknobs, bathroom fixtures, toilets, phones, keyboards, tablets and bedside tables. Immediately clean any surfaces that may have blood, poop or body fluids on them, using antibacterial cleaning solutions such as Lysol wipes, bleach, cleansers, etc. If clothing or bedding come into contact with blood, poop or body fluids, they should be washed immediately. Follow the directions on the laundry detergent and clothing labels but hot water is recommended when possible. Stopping home isolation precautions: If possible, consult your doctor before stopping home isolation precautions. According to the CDC, you can discontinue home isolation precautions when you have met both of these criteria: Your fever and respiratory symptoms have been gone for 24 luis felipe (more content not included)... Normal [facility] BASIC METABOLIC PANELon 12-3 0-2021 Anion gap [Moles/Vol] 16 mmol/L Normal 10 - 20 [facility] Comment on above: Performed By: #### B MP ####[address] [address] Calcium [Mass/Vol] 9.1 mg/dL Normal 8.6 - 10.3 formerly [facility] Comment on above: Performed By: #### B MP ####[address] [address] Chloride [Moles/Vol] 99 mmol/L Normal 98 - 107 [facility] Comment on above: Performed By: #### B MP ####[address] [address] Creatinine [Mass/Vol] 0.55 mg/dL Normal 0.50 - 1.05 [facility] Comment on above: Performed By: #### B MP ####[address] [address] eGFR FEMALE >90 Normal >90 [facility] Comment on above: Result Comment: CALC ULATIONS OF ESTIMATED GFR ARE PERFORMED USING THE 2020 CKD-EPI STUDY REFIT EQUATION WITHOUT THE RACE VARIABLE FOR THE IDMS-TRACEABLE CREATININE METHODS. https://jasn.asnjournals.org/content//ASN.808147949 8 Performed By: #### B MP ####[place] [address] Glucose [Mass/Vol] 167 mg/dL High 74 - 99 [facility] Comment on above: Performed By: #### B MP ####[place] [address] HCO3 (Bld) [Moles/Vol] 24 mmol/L Normal 21 - 32 [facility] Comment on above: Performed By: #### B MP ####[place] [id number] Potassium [Moles/Vol] 4.1 mmol/L Normal 3.5 - 5.3 [facility] Comment on above: Performed By: #### B MP ####[place] [address] Sodium [Moles/Vol] 135 mmol/L Low 136 - 145 [facility] Comment on above: Performed By: #### B MP ####[place] [id number] Urea nitrogen [Mass/Vol] 20 mg/dL Normal 6 - 23 [facility] Comment on above: Performed By: #### B MP ####[place] [id number] BNPon 03-05-2022 Natriuretic peptide B (Bld) [Mass/Vol] 20 pg/mL Normal 0 - 99 [facility] Comment on above: Result Comment: . <1 00 pg/mL - Heart failure unlikely 100-299 pg/mL - Intermediate probability of acute heart . failure exacerbation. Correlate with clinical . context and patient history. >=300 pg/mL - Heart Failure likely. Correlate with clinical . context and patient history. BNP testing is performed using different testing methodology at [facility] than at other [facility]. Direct result comparisons should only be made within the same method. Performed By: #### B NP2 ####[place] [id number] CBC AND DIFFERENTIALon 03-05 % AUTOMATED IMMATURE GRAN 0.3 % Normal 0.0 - 0.9 [facility] Comment on above: Result Comment: Vicenta ture Granulocyte Count (IG) includes promyelocytes, myelocytes and metamyelocytes but does not include bands. Percent differential counts (%) should be interpreted in the context of the absolute cell counts (cells/L). Performed By: #### C BCDF #### [place] [id number] Basophils (Bld) [#/Vol] 0.02 10*3/uL Normal 0.00 - 0.10 [facility] Comment on above: Performed By: #### C BCDF #### [place] [id number] Basophils/100 WBC (Bld) 0.3 % Normal 0.0 - 2.0 [facility] Comment on above: Performed By: #### C BCDF #### [place] [id number] Eosinophils (Bld) [#/Vol] 0.01 10*3/uL Normal 0.00 - 0.70 [facility] Comment on above: Performed By: #### C BCDF #### [place] [id number] Eosinophils/100 WBC (Bld) 0.1 % Normal 0.0 - 6.0 [facility] Comment on above: Performed By: #### C BCDF #### [place] [id number] Erythrocyte distribution width (RBC) [Ratio] 14.6 % High 11.5 - 14.5 [facility] Comment on above: Performed By: #### C BCDF #### [place] [id number] Hematocrit (Bld) [Volume fraction] 43.7 % Normal 36.0 - 46.0 [facility] Comment on above: Performed By: #### C BCDF #### [place] [id number] Hemoglobin (Bld) [Mass/Vol] 13.9 g/dL Normal 12.0 - 16.0 [facility] Comment on above: Performed By: #### C BCDF #### [address] [address] Lymphocytes (Bld) [#/Vol] 2.21 10*3/uL Normal 1.20 - 4.80 [facility] Comment on above: Performed By: #### C BCDF #### [address] [address] Lymphocytes/100 WBC (Bld) 31.5 % Normal 13.0 - 44.0 [facility] Comment on above: Performed By: #### C BCDF #### [address] [address] MCHC (RBC) [Mass/Vol] 31.8 g/dL Low 32.0 - 36.0 [facility] Comment on above: Performed By: #### C BCDF #### [address] [address] MCV (RBC) [Entitic vol] 84 fL Normal 80 - 100 [facility] Comment on above: Performed By: #### C BCDF #### [address] [address] Monocytes (Bld) [#/Vol] 0.58 10*3/uL Normal 0.10 - 1.00 [facility] Comment on above: Performed By: #### C BCDF #### [address] [address] Monocytes/100 WBC (Bld) 8.3 % Normal 2.0 - 10.0 [facility] Comment on above: Performed By: #### C BCDF #### [address] [address] Neutrophils (Bld) [#/Vol] 4.17 10*3/uL Normal 1.20 - 7.70 [facility] Comment on above: Result Comment: Perc ent differential counts (%) should be interpreted in the context of the absolute cell counts (cells/L). Performed By: #### C BCDF #### [address] [place] [address] Neutrophils/100 WBC (Bld) 59.5 % Normal 40.0 - 80.0 [facility] Comment on above: Performed By: #### C BCDF #### [address] [address] Platelets (Bld) [#/Vol] 234 10*3/uL Normal 150 - 450 [facility] Comment on above: Performed By: #### C BCDF #### [address] [address] RBC 5.20 x10E12/L Normal 4.00 - 5.20 [facility] Comment on above: Performed By: #### C BCDF #### [address] [address] WBC (Bld) [#/Vol] 7.0 10*3/uL Normal 4.4 - 11.3 [facility] Comment on above: Performed By: #### C BCDF #### [address] [address] CHEST 1 VIEWon 03-05-2022 CHEST 1 VIEW Patient Name: NADIA ADDISON STUDY: CHEST 1 VIEW; 03/05/2022 8:22 pm INDICATION: Chest Pain . COMPARISON: 05/07/2021 ACCESSION NUMBER(S): [id number] ORDERING CLINICIAN: KENIA MORILLO FINDINGS: There is no focal lung consolidation or effusion. There is no edema. The cardiac silhouette is within normal limits for size. IMPRESSION: No acute cardiopulmonary process. Electronically signed by: GERALD CHOI MD Normal [facility] D-DIMER, VTE EXCLUSIONon D-DIMER, VTE EXCLUSION 480 ng/mL FEU Normal < or = 500 [facility] Comment on above: Result Comment: The VTE Exclusion D-Dimer assay is reported in ng/mL Fibrinogen Equivalent Units (FEU). Per manufacturers instructions for use, a value of less than 500 ng/mL (FEU) may help to exclude DVT or PE in outpatients when the assay is used with a clinical pretest probability assessment. ([facility]EM[facility] must utilize and document eCalc Wells Score Deep Vein Thrombosis Risk for DVT exclusion only; Emergency Department should utilize Guidelines for Emergency Department Use of the VTE Exclusion D-Dimer and Clinical Pretest probability assessment model for DVT or PE exclusion.) Performed By: #### D IMEX #### [place] [address] INFLUENZA A/B, COVID 2019 PC R,SYMPTOMATICon 03-05-2022 INFLUENZA A, PCR Not detected Normal Not Detected [facility] Comment on above: Result Comment: Resp iratory virus testing is performed routinely by PCR for Influenza A/B and RSV. Not Detected results do not preclude Influenza A/B or RSV infections since the adequacy of sample collection or low viral burden may impact the clinical sensitivity of this test method. Performed By: #### C BCDF #### [place] [address] INFLUENZA B, PCR Not detected Normal Not Detected [facility] Comment on above: Result Comment: Resp iratory virus testing is performed routinely by PCR for Influenza A/B and RSV. Not Detected results do not preclude Influenza A/B or RSV infections since the adequacy of sample collection or low viral burden may impact the clinical sensitivity of this test method. Performed By: #### C BCDF #### [place] [address] SARS-CoV-2 (COVID-19) RNA SIMI+probe Ql (Unsp spec) Not detected Normal Not Detected [facility] Comment on above: Result Comment: . This test has received FDA Emergency Use Authorization (EUA) and has been verified by [facility]. This test is only authorized for the duration of time that circumstances exist to justify the authorization of the emergency use of in vitro diagnostic tests for the detection of SARS-CoV-2 virus and/or diagnosis of COVID-19 infection under section 564(b)(1) of the Act, 21 U.S.C. 360bbb-3(b)(1), unless the authorization is terminated or revoked sooner. [facility] is certified under CLIA-88 as qualified to perform high complexity testing. Testing is performed in the [facility] laboratory located at [address] [place] [address]. SARS-CoV-2/Flu/RSV Multiplex Test: Fact sheet for providers: https://www.fda.gov/media/707945/download Fact sheet for patients: https://www.fda.gov/media/037037/download Performed By: #### C BCDF #### [address] [address] Lab Specimen Source Nasal, Nasopharyngeal [facility] Comment on above: Performed By: #### C BCDF #### [address] [address] Narrative Note - Outpatiento n 03-05-2022 Narrative Note - Outpatient Narrative Note: Description Patient presented to the Urgent Care today for evaluation of chest discomfort/tightness, shortness of breath, and intermittent wheezing - sxs started 02/28. Also has intermittent dizziness. Reports she started a leftover course of steroids 5 days ago and has not had any improvement in symptoms. Albuterol is sometimes helpful, but not always. Has not been checking her glucose - is a Type 1 diabetic. Has history of lovenox x 1 month s/p elevated D-dimer after COVID hospitalization in the past, but she specifically denies history of known PE(). In light of reported symptoms and history, and after extensive discussion of options/my concerns, recommended [facility]ERRY evaluation via the ER. Patient receptive and agreed to go straight there. Non-billable - deferring all evaluation/visit to the ER. Electronic Signatures: Prudence Kasper (MECHANICAL INSPECTOR-SOFTWARE CONFIGURATION ANALYST) (Signed 05-Mar-2022 17:36) Authored: Narrative Note - OP Last Updated: 05-Mar-2022 17:36 by Prudence Kasper (MECHANICAL INSPECTOR-SOFTWARE CONFIGURATION ANALYST) [facility] Provider Note - ED v3on 12-3 Provider Note - ED v3 Provider Note: Chart Review: HISTORY OF PRESENTING ILLNESS NADIA is a 51 year old Female and was seen by me at 05-Mar-2022 19:11 for a chief complaint of cough (Cough and chest congestion for the past few weeks. Stated she was diagnosed with bronchitis and feeling better. Stated she started feeling worse on [place]. Finished antibiotics and still using inhaler.)(1). Triage Information: Most recent Vital Sign Value Date Temp (F): 98.1 03-05-2022 18:13 Temp (C): 36.7 03-05-2022 18:13 Heart Rate (beats/min): 78 03-05-2022 18:13 Respirations (breaths/min): 18 03-05-2022 18:13 SpO2 (%): 96 03-05-2022 18:13 BP Systolic (mm Hg): 141 03-05-2022 18:13 BP Diastolic (mm Hg): 99 03-05-2022 18:13 PAST MEDICAL HISTORY ALLERGIES/INTOLERANCES: Allergy Allergen: erythromycin Type: Drug Reaction: Other Allergen: Biaxin Type: Drug Reaction: Hives/Urticaria Allergen: Zithromax Z-Kodi Type: Drug Reaction: Other Allergen: Bactrim Type: Drug Reaction: Hives/Urticaria Allergen: Zomig Type: Drug Reaction: Other Allergen: Demerol Type: Drug Reaction: Unknown HEALTH HISTORY: No documented data. OUTPATIENT MEDICATIONS: Home Medications Review Status for Reconciliation: Not Done Med Status: Patient Currently Takes Medications Drug Name: Toprol-XL 50 mg oral tablet, extended release Instructions: 1 tab(s) orally once a day Drug Name: Zoloft 50 mg oral tablet Instructions: 1 tab(s) orally once a day Drug Name: Brynn 180 mg oral tablet Instructions: 1 tab(s) orally once a day Drug Name: Xigduo XR 5 mg-1000 mg oral tablet, extended release Instructions: 1 tab(s) orally 2 times a day Drug Name: Trulicity Pen Instructions: subcutaneous once a week Drug Name: omeprazole 20 mg oral delayed release capsule Instructions: 1 cap(s) orally once a day Drug Name: vitamin E 400 intl units oral capsule Instructions: 1 cap(s) orally once a day Drug Name: Multiple Vitamins oral tablet Instructions: 1 tab(s) orally once a day Drug Name: albuterol 90 mcg/inh inhalation aerosol Instructions: 2 puff(s) inhaled 2 times a day as needed for cough Drug Name: amoxicillin-clavulanate 875 mg-125 mg oral tablet Instructions: 1 tab(s) orally every 12 hours SIGNIFICANT EVENTS: Past Medical History Description:HYPERTENSION/ DIABETES/ FIBROMYALGIA / FATTY LIVER Description:ANXIETY Past Surgical History Description:Dilitation & Curretage (D&C) Description:LIVER BX CRITICAL CARE RESULTS: Recent Lab Results: I have reviewed these laboratory results: Troponin I, High Sensitivity Trending View [id number] 21:24:00 05-Mar-2022 20:23:00 Troponin I, High Sensitivity4 3 Influenza A/B,Covid 2019 PCR,Symptomatic 05-Mar-2022 20:24:00 ResultValue Fluid Source Nasal, Nasopharyngeal Influenza A PCR NOT DETECTED Reference Range: Not Detected Respiratory virus testing is performed routinely by PCR for Influenza A/B and RSV. Not Detected results do not preclude Influenza A/B or RSV infections since the adequacy of sample collection or lo Influenza B PCR NOT DETECTED Reference Range: Not Detected Respiratory virus testing is performed routinely by PCR for Influenza A/B and RSV. Not Detected results do not preclude Influenza A/B or RSV infections since the adequacy of sample collection or lo Coronavirus 2019,PCR NOT DETECTED Reference Range: Not Detected .This test has received FDA Emergency Use Authorization (EUA) and has been verified by [facility]. This test is only authorized for the duration of time that circum Complete Blood Count + Differential 05-Mar-2022 20:23:00 ResultValue White Blood Cell Count 7.0 Red Blood Cell Count 5.20 HGB 13.9 HCT 43.7 MCV 84 MCHC 31.8 L PLT 234 RDW-CV 14.6 H Neutrophil % 59.5 Immature Granulocytes % 0.3 Lymphocyte % 31.5 Monocyte % 8.3 Eosinophil % 0.1 Basophil % 0.3 Neutrophil Count 4.17 Lymphocyte Count 2.21 Monocyte Count 0.58 Eosinophil Count 0.01 Basophil Count 0.02 Basic Metabolic Panel 05-Mar-2022 20:23:00 ResultValue Glucose, Serum 167 H NA 135 L K 4.1 CL 99 Bicarbonate, Serum 24 Anion Gap, Serum 16 BUN 20 CREAT 0.55 GFR Female >90 Calcium, Serum 9.1 Brain Natriuretic Peptide 05-Mar-2022 20:23:00 ResultValue Brain Natriuretic Peptide 20 D-Dimer, VTE Exclusion 05-Mar-2022 20:23:00 ResultValue D-Dimer, VTE Exclusion 480 Radiology Results: Impression: No acute cardiopulmonary process. Xray Chest 1 View [Mar 05 2022 8:29PM] VITAL SIGNS: T PRBP SpO2O2(LPM) %FiO2 Method 05-Mar-2022 22:19:00-135/79 99 room air, no respiratory support 05-Mar-2022 20:38:[id number] 97 room air, no respiratory support 05-Mar-2022 18:13:[id number] 96 room air, no respiratory support MDM MDM/ED COURSE: PMH: Reviewed PSH: Reviewed So (more content not included)... Normal [facility] Risk Screen - Adult Emergenc yon 03-05-2022 Risk Screen - Adult Emergency Preferred Language: Preferred Language: Preferred Language for Discussing Health Care (patient/designee)[place] Patient Preferred Pharmacy: Patient Preferred Pharmacy Statement: I have reviewed and updated the patient's preferred pharmacy selection for today's visit. Advanced Directives: Advance Directive/DNRno Family Violence Adult: Abuse Screen: Are you or have you been threatened or abused physically, emotionally, or sexually by anyoneno Learning Assessment (Patient): Learning Assessment (Patient): Patient is Able to be Assessed for Learningyes Factors Influencing Readiness to Learnacuteness of illness Factors that Impact Ability to Learnnone Devices/Methods Used to Communicatenone Learning Preferencesverbal instruction; written material Cultural Considerationsnone Developmental Considerationsnone Church Considerationsnone Learning Assessment (Other Learner): Learning Assessment (Other Learner): Other learner availableno Pressure Injury/TB/Substance: Pressure Injury: Do you have a coughyes... Has your cough lasted longer than 2 weeksno Smoking Statusnever smoker Alcohol Usedenies Drug Usedenies Admission Risk Screen: Significant IndicatorsComplete CAGE: CAGE: Is this an injured patient at a Trauma Center [place]/[place]): no Electronic Signatures: Melissa Carrera (BASHIR) (Signed 05-Mar-2022 18:18) Authored: Preferred Language, Patient Preferred Pharmacy, Advanced Directives, Family Violence Adult, Learning Assessment (Patient), Learning Assessment (Other Learner), Pressure Injury/TB/Substance, Pressure Injury, CAGE Last Updated: 05-Mar-2022 18:18 by Melissa Carrera (BASHIR) Normal [facility] TROPONIN I, HIGH SENSITIVITY on 03-05-2022 TROPONIN I, HIGH SENSITIVITY 4 ng/L Normal 0 - 13 [facility] Comment on above: Result Comment: . Less than 99th percentile of normal range cutoff- Female and children under 18 years old <14 ng/L; Male <21 ng/L: Negative Repeat testing should be performed if clinically indicated. . Female and children under 18 years old 14-50 ng/L; Male 21-50 ng/L: Consistent with possible cardiac damage and possible increased clinical risk. Serial measurements may help to assess extent of myocardial damage. . >50 ng/L: Consistent with cardiac damage, increased clinical risk and myocardial infarction. Serial measurements may help assess extent of myocardial damage. . NOTE: Children less than 1 year old may have higher baseline troponin levels and results should be interpreted in conjunction with the overall clinical context. . NOTE: Troponin I testing is performed using a different testing methodology at [facility] than at other [facility]. Direct result comparisons should only be made within the same method. Performed By: #### [facility] ####[place] [id number] TROPONIN I, HIGH SENSITIVITY 3 ng/L Normal 0 - 13 [facility] Comment on above: Result Comment: . Less than 99th percentile of normal range cutoff- Female and children under 18 years old <14 ng/L; Male <21 ng/L: Negative Repeat testing should be performed if clinically indicated. . Female and children under 18 years old 14-50 ng/L; Male 21-50 ng/L: Consistent with possible cardiac damage and possible increased clinical risk. Serial measurements may help to assess extent of myocardial damage. . >50 ng/L: Consistent with cardiac damage, increased clinical risk and myocardial infarction. Serial measurements may help assess extent of myocardial damage. . NOTE: Children less than 1 year old may have higher baseline troponin levels and results should be interpreted in conjunction with the overall clinical context. . NOTE: Troponin I testing is performed using a different testing methodology at [facility] than at other [facility]. Direct result comparisons should only be made within the same method. Performed By: #### [facility] #### [address] [address] Triage - EDon 03-05-2022 Triage - ED Quick Triage: Are You no Have You Given In The Last 6 Weeksno Are You Currently Breastfeedingno Chart Review: ARRIVAL INFORMATION Mode of Arrival: private vehicle CHIEF COMPLAINT NADIA ADDISON is a Female patient with a chief complaint of cough (Cough and chest congestion for the past few weeks. Stated she was diagnosed with bronchitis and feeling better. Stated she started feeling worse on Dave. Finished antibiotics and still using inhaler.). Triage Date/Time: 05-Mar-2022 18:13 JAMES: 3 Pain Rating (0-10): 4 = Moderate Vital Signs: Temperature: 98.1F ( 36.7C) taken oral Blood Pressure: 141/99 Mean: Heart Rate: 78 Respiratory Rate: 18 Pulse Oximetry: 96% on room air, no respiratory support. Height: feet 65.00 inches. CM Weight: 205.0 pounds. Calculated 93.0 kg. (stated) Andrew Coma Scale: Best Eye Response: (E4) spontaneous Best Motor Response: (M6) obeys commands Best Verbal Response: (V5) oriented Andrew Score: 15 Cough lasting greater than 3 weeks: no Allergies: yes Patient has homicidal thoughts: no Risk Screens Suicide Risk Screen In the Past Month: Have you wished you were or wished you could go to sleep and not wake up no In the Past Month: Have you had any actual thoughts of killing yourself no In Your Lifetime: Have you ever done anything, started to do anything, or prepared to do anything to end your life no Luevano Fall Scale Screening Has the patient fallen before (or is the patient in the ED as a result of a fall) has not had a fall Does the patient have an impaired gait does not have impaired gait Is the patient cognitively impaired not cognitively impaired Interventions: Luevano Fall Interventions: LOW INTERVENTIONS: *patient oriented to surroundings and call system, * patient/family falls education completed and documented, *patients fall status communicated during bedside handoff, *whiteboard updated, *mode of toileting discussed with patient, *bed in low position with brakes locked, *call light in reach, * non-skid footwear TRAVEL HISTORY Travel History Coronavirus Screening: no exposure or symptoms(1) Travel Exposure History: NO travel to International locations in the past 30 days PAIN Pain Scale Used: ASH Pain Rating (0-10): 4 = Moderate Past Medical History: Past Medical History Reviewedyes Electronic Signatures: Melissa Carrera) (Signed 05-Mar-2022 18:16) Entered: Risk Screens, Pain, Travel History, Chart Review, Scores, Past Medical History Authored: Quick Triage, Risk Screens, Pain, Travel History, Chart Review, Scores, Past Medical History Last Updated: 05-Mar-2022 18:16 by Melissa Carrera (RN) References: 1. Data Referenced From Intake Note - Urgent Care 05-Mar-2022 16:39 Normal [facility] Provider Note - ED v3on 11-2 Provider Note - ED v3 Provider Note: Chart Review: ED NOTES ED NOTES: Presents for evaluation of URI. Symptoms including cough, congestion, body aches, malaise, and headache have been present for several days and refractory to OTC meds. No fever, chills, loss of taste/smell, nausea, vomiting, abdominal pain, CP, or SOB. No exacerbating factors. No known COVID 19/flu exposure. HISTORY OF PRESENTING ILLNESS NADIA is a 51 year old Female and was seen by me at 01-Feb-2022 16:04. Triage Information: Most recent Vital Sign Value Date PAST MEDICAL HISTORY ALLERGIES/INTOLERANCES: Allergy Allergen: erythromycin Type: Drug Reaction: Other Allergen: Biaxin Type: Drug Reaction: Hives/Urticaria Allergen: Zithromax Z-Kodi Type: Drug Reaction: Other Allergen: Bactrim Type: Drug Reaction: Hives/Urticaria Allergen: Zomig Type: Drug Reaction: Other Allergen: Demerol Type: Drug Reaction: Unknown HEALTH HISTORY: No documented data. OUTPATIENT MEDICATIONS: Home Medications Review Status for Reconciliation: Complete Med Status: Patient Currently Takes Medications Drug Name: Toprol-XL 50 mg oral tablet, extended release Instructions: 1 tab(s) orally once a day Drug Name: Zoloft 50 mg oral tablet Instructions: 1 tab(s) orally once a day Drug Name: Brynn 180 mg oral tablet Instructions: 1 tab(s) orally once a day Drug Name: Xigduo XR 5 mg-1000 mg oral tablet, extended release Instructions: 1 tab(s) orally 2 times a day Drug Name: Trulicity Pen Instructions: subcutaneous once a week Drug Name: omeprazole 20 mg oral delayed release capsule Instructions: 1 cap(s) orally once a day Drug Name: vitamin E 400 intl units oral capsule Instructions: 1 cap(s) orally once a day Drug Name: Multiple Vitamins oral tablet Instructions: 1 tab(s) orally once a day Drug Name: doxycycline hyclate 100 mg oral tablet Instructions: 1 tab(s) orally 2 times a day Drug Name: Medrol Dosepak 4 mg oral tablet Instructions: Take as directed. Drug Name: albuterol 90 mcg/inh inhalation aerosol Instructions: 2 puff(s) inhaled 2 times a day as needed for cough SIGNIFICANT EVENTS: Past Medical History Description:HYPERTENSION/ DIABETES/ FIBROMYALGIA / FATTY LIVER Description:ANXIETY Past Surgical History Description:Dilitation & Curretage (D&C) Description:LIVER BX LOAN ORIGINATOR: Is : no Is : no REVIEW OF SYSTEMS All other systems reviewed and are negative REVIEW OF SYSTEMS: Comments See HPI PHYSICAL EXAM CONSTITUTIONAL: Well appearing, well nourished, awake, alert, oriented to person, place, time/situation and in no apparent distress. HENMT: Airway patent, ears with clear tympanic membranes bilaterally. Nasal mucosa clear. Mouth with normal mucosa. Throat has no vesicles, no oropharyngeal exudates and uvula is midline. Face with no lymph node enlargement. EYES: Clear bilaterally, pupils equal, round and reactive to light. CARDIOVASCULAR: Normal rate, regular rhythm. Heart sounds S1, S2. No murmurs, rubs or gallops. PMI non-displaced. RESPIRATORY: Decreased air movement bilaterally and scattered wheezing throughout. NEUROLOGICAL: Alert and oriented, no focal deficits, no motor or sensory deficits. SKIN: Skin normal color for race, warm, dry and intact. No evidence of trauma. PSYCHIATRIC: Alert and oriented to person, place, time/situation. normal mood and affect. No apparent risk to self or others. CRITICAL CARE VITAL SIGNS: T PRBP SpO2O2(LPM) %FiO2 Method 01-Feb-2022 16:04:[id number] [facility] MDM/ED COURSE: Discussed Findings with: patient Data Reviewed: vital signs Treatment Plan: Rx doxycycline, medrol dose kodi and albuterol inhaler. Duoneb given in office, tolerated well and improved air movement and decreased wheezing post treatment. Patient's clinical presentation is otherwise unremarkable at this time. Patient is discharged with instructions to follow-up with primary care or seek emergency medical attention for worsening symptoms or any new concerns. DISPOSITION Diagnosis/Annotation: ED Dx Name:Acute bronchitis Code:J20.9 Name:Acute sinusitis Code:J01.90 Disposition: discharged Type: home CONSULT CRITICAL CARE TIME Is this a critically ill patient: no Electronic Signatures: Fernando Bynum (MECHANICAL INSPECTOR-SOFTWARE CONFIGURATION ANALYST) (Signed 01-Feb-2022 16:55) Authored: ED Notes, HPI, PMH, ROS, PE, Results/Vital Signs, MDM/ED Course, Clinical Impression, Attestation, Chart Review, Scores Last Updated: 01-Feb-2022 16:55 by Fernando Bynum (MECHANICAL INSPECTOR-SOFTWARE CONFIGURATION ANALYST) Normal [facility] Mamm - Screening Mammogram w / Tomosynthesison 12-11-2021 MG Breast Screening Normal [facility] Work Phone: Office Visit (Primary Care T xt/Forms)on 11-18-2021 Follow-up visit Diagnoses/Problems Assessed Uncontrolled type 1 diabetes mellitus with hyperglycemia (250.83,790.29) (E10.65) Hypertension (401.9) (I10) Migraine without aura and without status migrainosus, not intractable (346.10) (G43.009) Orders Encounter for screening mammogram for malignant neoplasm of breast Mamm - Screening Mammogram w/ Tomosynthesis; Status:Hold For - Scheduling; Requested for:[id number]; Radiologist to Determine Optimal Study : Y What are the patient's signs and symptoms ? : Annual Screening Mammogram PMH: History of type 2 diabetes mellitus Changed: From Trulicity 1.5 MG/0.5ML Subcutaneous Solution Pen-injector inject one prefilled pen injector weekly as directed To Trulicity 3 MG/0.5ML Subcutaneous Solution Pen-injector Inject 3 mg weekly Uncontrolled type 1 diabetes mellitus with hyperglycemia Comprehensive Metabolic Panel; Status:Active; Requested for:[id number]; Hemoglobin A1C; Status:Active; Requested for:[id number]; Provider Impressions Provider Impressions Free Text Note Form: OV and lab in 4 months Chief Complaint 2 MO FU, SKIN CHECK OF MOLE ON LT SIDE History of Present Illness Diabetes Type II - Takes and tolerates medications. No hypoglycemia. Counseled on diet with low carbohydrate intake, weight loss and increased activity levels/exercise. Hypertension - Takes medication without side effects. No CP/SOB/Palpitations. Follows a no added salt diet. Counseled diet, activity and weight loss. inc trulicity to 3 mg has a lot of Xig left. fininish up but don't refill. will inc to 10-1000 bid, call when she runs out of the 5/thousand. Zoloft works much better for the anxiety, Cymbalta worked much better for the pain, but the anxiety was out of control on the Cymbalta. The combination of Zoloft for anxiety and as needed dexamethasone for bad headaches works well. Review of Systems Constitutional: No weakness, No fatigue. Eye: No blurring, No visual disturbances. Respiratory: No shortness of breath, No cough. Cardiovascular: No chest pain, No palpitations. Gastrointestinal: No nausea, No diarrhea, No constipation. Musculoskeletal: + joint pain, + muscle pain. Integumentary: No rash, No breakdown. Neurologic: Alert and oriented X4, + headache. Psychiatric: No irritability, No sleeping problems. 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) Ankle fracture, right (824.8) (S82.891A) Body aches (780.96) (R52) Candidiasis (112.9) (B37.9) Class 1 obesity with body mass index (BMI) of 33.0 to 33.9 in adult (278.00,V85.33) (E66.9,Z68.33) Contusion of left knee, initial encounter (924.11) (S80.02XA) Cough (786.2) (R05.9) COVID-19 (079.89) (U07.1) Dizziness (780.4) (R42) Enlarged lymph node in neck (785.6) (R59.0) Extreme obesity (278.00) (E66.8) Fall, in, on, steps, initial encounter (E880.9) (W10.8XXA) Fatigue (780.79) (R53.83) Fatty liver (571.8) (K76.0) Fibromyalgia (729.1) (M79.7) Generalized anxiety disorder (300.02) (F41.1) GERD (gastroesophageal reflux disease) (530.81) (K21.9) Hypertension (401.9) (I10) Infectious mononucleosis (075) (B27.90) Migraine without aura and without status migrainosus, not intractable (346.10) (G43.009) Neck pain (723.1) (M54.2) Non-recurrent acute serous otitis media of both ears (381.01) (H65.03) Numbness (782.0) (R20.0) Right ankle swelling (719.07) (M25.471) Right leg swelling (729.81) (M79.89) Screening for breast cancer (V76.10) (Z12.39) Screening for cervical cancer (V76.2) (Z12.4) Screening for colon cancer (V76.51) (Z12.11) Shingles (053.9) (B02.9) Sore throat (462) (J02.9) Sprain of other ligament of right ankle, initial encounter (845.09) (S93.491A) Syncope (780.2) (R55) Uncontrolled type 1 diabetes mellitus with hyperglycemia (250.83,790.29) (E10.65) Whiplash, initial encounter (847.0) (S13.4XXA) Past Medical History Problems History of Encounter for screening mammogram for high-risk patient (V76.11) (Z12.31) History of Essential hypertension, benign (401.1) (I10) History of Fall at home, initial encounter (E888.9,E849.0) (W19.XXXA,Y92.009) History of type 2 diabetes mellitus (V12.29) (Z86.39) History of Menstruation History of Migraines (346.90) (G43.909) History of Normal vaginal delivery (650) (O80) Surgical History Problems History of Cystoscopy History of Dilation and curettage Family History Mother Family history of asthma (V17.5) (Z82.5) Family history of hypertension (V17.49) (Z82.49) Father Family history of diabetes mellitus (V18.0) (Z83.3) Child Family history of asthma (V17.5) (Z82.5) Grandparent Family history of cerebrovascular accident (CVA) (V17.1) (Z82.3) Family history of coronary artery disease (V17.3) (Z82.49) Family history of diabetes mellitus (V18.0) (Z83.3) Family history of hypertension (V17.49) (Z82.49) Social History Problems Consumes alcohol occasionally (V49.89) (Z78.9) Daily caffeinate (more content not included)... Normal [facility] Tobacco Screening.on Fall risk assessment a) No falls within the last year [facility] Phone: Tobacco use status [facility] b) No [facility] Work Phone: Laboratory - Hematology and Cell countson 11-14-2021 HbA1c (Bld) [Mass fraction] 9.8 % [facility] Work Phone: Tobacco Screening.on Fall risk assessment b) One or more falls in the last year [facility] Work Phone: Tobacco use status [facility] b) No [facility] Phone: Tobacco Screening.on Adult depression screening assessment No [facility] Phone: Fall risk assessment a) No falls within the last year [facility] Phone: Tobacco use status CP b) No [facility] Phone: Tobacco Screening.on Adult depression screening assessment No [facility] Phone: Fall risk assessment a) No falls within the last year [facility] Phone: Tobacco use status [facility] b) No [facility] Phone: Radiologyon 05-07-2021 XR Chest 2 Views Normal [facility] [facility] Phone: Tobacco Screening.on Adult depression screening assessment No [facility] Phone: Fall risk assessment a) No falls within the last year [facility] Work Phone: Tobacco use status [facility] b) No [facility] Work Phone: Tobacco Screening.on 021 Fall risk assessment a) No falls within the last year [facility] 300 Work Phone: Tobacco use status [facility] b) No [facility] 300 Work Phone: IO Occult Blood, Fecalon Hemoglobin.gastroi ntestinal spec 1 Ql (Stl) Negative [facility] Work Phone: Tobacco Screening.on Fall risk assessment b) One or more falls in the last year [facility] Work Phone: Tobacco use status [facility] b) No [facility] Work Phone: VASC LAB Venous Duplex Ultra sound for DVTon 01-16-2021 VASC LAB Venous Duplex Ultrasound for DVT [facility] 300 Work Phone: Radiologyon 01-15-2021 XR Ankle 3 Views Normal [facility] 300 Work Phone: XR Ankle 3 Views Please click on the link to view the study images Normal [facility] 300 Work Phone: Tobacco Screening.on 021 Fall risk assessment b) One or more falls in the last year [facility] 300 Work Phone: Tobacco use status HS b) No [facility] 300 Work Phone: Falls Risk Screeningon 12-25 Fall risk assessment b) One or more falls in the last year [facility] 300 Work Phone: Tobacco use status [facility] b) No [facility] 300 Work Phone: Radiologyon 12-25-2020 XR Ankle 3 Views Normal [facility] 300 Work Phone: XR Ankle 3 Views Please click on the link to view the study images Normal [facility] 300 Work Phone: Radiologyon 12-11-2020 XR Ankle 3 Views Normal [facility] 300 Work Phone: XR Ankle 3 Views Please click on the link to view the study images Normal [facility] 300 Work Phone: Tobacco Screening.on 021 Fall risk assessment b) One or more falls in the last year [facility] 300 Work Phone: Tobacco use status [facility] b) No [facility] 300 Work Phone: Radiologyon 11-06-2020 XR Ankle 2 Views Please click on the link to view the study images Normal [facility] 300 Work Phone: XR Ankle 2 Views Normal [facility] 300 Work Phone: Tobacco Screening.on 021 Fall risk assessment b) One or more falls in the last year [facility] 300 Work Phone: Tobacco use status [facility] b) No [facility] 300 Work Phone: Tobacco Screening.on 021 Fall risk assessment b) One or more falls in the last year [facility] 300 Work Phone: Tobacco use status [facility] b) No [facility] 300 Work Phone: Tobacco Screening.on 021 Fall risk assessment b) One or more falls in the last year [facility] 300 Work Phone: Tobacco use status [facility] b) No [facility] 300 Work Phone: CT C Spine without Contrasto n 10-28-2020 CT Cervical spine WO contrast Normal [facility] 300 Work Phone: CT Head without Contraston 0 10-28-2020 CT Head limited WO contrast Normal [facility] 300 Work Phone: Complete Blood Count + Diffe rentialon 10-28-2020 Basophils/100 WBC (Bld) 0.9 % 0.0 - 2.0 [facility] 300 Work Phone: [phone] Erythrocyte distribution width (RBC) [Ratio] 14.1 % See Below [facility] 300 Work Phone: Comment on above: Reference Range: 11. 5 - 14.5 Hematocrit (Bld) [Volume fraction] 45.9 % See Below [facility] 300 Work Phone: Comment on above: Reference Range: 36. 0 - 46.0 Hemoglobin (Bld) [Mass/Vol] 14.8 g/dL See Below [facility] 300 Work Phone: Comment on above: Reference Range: 12. 0 - 16.0 Lymphocytes/100 WBC (Bld) 25.5 % See Below [facility] 300 Work Phone: Comment on above: Reference Range: 13. 0 - 44.0 MCHC (RBC) [Mass/Vol] 32.3 g/dL See Below [facility] 300 Work Phone: Comment on above: Reference Range: 32. 0 - 36.0 MCV (RBC) [Entitic vol] 86 fL 80 - 100 [facility] 300 Work Phone: [phone] Monocytes/100 WBC (Bld) 4.7 % 2.0 - 10.0 [facility] 300 Work Phone: [phone] Neutrophils/100 WBC (Bld) 68.3 % [facility] Below [facility] Work Phone: Comment on above: Reference Range: 40. 0 - 80.0 Platelets (Bld) [#/Vol] 242 10*3/uL 150 - 450 [facility] 300 Work Phone: RBC (Bld) [#/Vol] 5.35 {x10E12/L} above high threshold See Below [facility] 300 Work Phone: Comment on above: Reference Range: 4.0 0 - 5.20 WBC (Bld) [#/Vol] 10.7 10*3/uL 4.4 - 11.3 [facility] 300 Work Phone: Complete Blood Count + Differential 0.10 {x10E9/L} See Below [facility] 300 Work Phone: Comment on above: Reference Range: 0.0 0 - 0.10 Reference Range: 0.0 0 - 0.70 Complete Blood Count + Differential 0.50 {x10E9/L} See Below [facility] 300 Work Phone: Comment on above: Reference Range: 0.1 0 - 1.00 Complete Blood Count + Differential 2.70 {x10E9/L} See Below [facility] 300 Work Phone: Comment on above: Reference Range: 1.2 0 - 4.80 Complete Blood Count + Differential 7.30 {x10E9/L} See Below [facility] 300 Work Phone: Comment on above: Reference Range: 1.2 0 - 7.70 Percent differential counts (%) should be interpreted in the context of the absolute cell counts (cells/L). Complete Blood Count + Differential 0.6 % 0.0 - 6.0 [facility] 300 Work Phone: Complete Blood Count + Differential 0.1 {/100_WBC} [facility] 300 Work Phone: Coronavirus 2019 RNA by PCR, Symptomaticon 10-28-2020 Date and time of symptom onset [id number] [facility] 300 Work Phone: Coronavirus 2019 RNA by PCR, Symptomatic Not detected Normal See Below [facility] 300 Work Phone: Comment on above: SOURCE: Nasal, Nasop haryngealReference Range: Not Detected.This test has received FDA Emergency Use Authorization (EUA) and has been verified by [facility]. This test is only authorized for the duration of time that circumstances exist to justify the authorization of the emergency use of in vitro diagnostic tests for the detection of SARS-CoV-2 virus and/or diagnosis of COVID-19 infection under section 564(b)(1) of the Act, 21 U.S.C. 360bbb-3(b)(1), unless the authorization is terminated or revoked sooner. [facility] is certified under CLIA-88 as qualified to perform high complexity testing. Testing is performed in the [facility] laboratory located at [address] [place] [address].SARS-CoV-2/Flu/RSV Multiplex Test: Fact sheet for providers: https://www.fda.gov/media/844598/downloadFact sheet for patients: https://www.fda.gov/media/019860/download Laboratory - Chemistry and C hemistry - challengeon 10-28-2020 Albumin BCP dye [Mass/Vol] 4.2 g/dL 3.4 - 5.0 [facility] 300 Work Phone: ALP [Catalytic activity/Vol] 73 U/L 33 - 110 [facility] 300 Work Phone: ALT With P-5'-P [Catalytic activity/Vol] 26 U/L 7 - 45 [facility] 300 Work Phone: Comment on above: Patients treated wit h Sulfasalazine may generate falsely decreased results for ALT. Anion gap [Moles/Vol] 16 mmol/L 10 - 20 [facility] 300 Work Phone: [phone] AST With P-5'-P [Catalytic activity/Vol] 20 U/L 9 - 39 [facility] 300 Work Phone: [phone] Bilirubin [Mass/Vol] 0.5 mg/dL 0.0 - 1.2 [facility] 300 Work Phone: [phone] Calcium [Mass/Vol] 9.0 mg/dL 8.6 - 10.3 [facility] 300 Work Phone: [phone] Chloride [Moles/Vol] 102 mmol/L 98 - 107 [facility] 300 Work Phone: [phone] CO2 [Moles/Vol] 23 mmol/L 21 - 32 [facility] 300 Work Phone: [phone] Creatinine [Mass/Vol] 0.56 mg/dL See Below [facility] 300 Work Phone: [phone] Comment on above: Reference Range: 0.5 0 - 1.05 Glucose [Mass/Vol] 230 mg/dL above high threshold 74 - 99 [facility] 300 Work Phone: [phone] Potassium [Moles/Vol] 3.9 mmol/L 3.5 - 5.3 [facility] 300 Work Phone: [phone] Protein [Mass/Vol] 6.7 g/dL 6.4 - 8.2 [facility] 300 Work Phone: [phone] Sodium [Moles/Vol] 137 mmol/L 136 - 145 [facility] 300 Work Phone: [phone] Urea nitrogen [Mass/Vol] 17 mg/dL 6 - 23 [facility] 300 Work Phone: No [facility] Informationon 10-28 [email or web address]?Ret rieveTestByDateTime?Patient IW=[id number]&Date= 1&Time=03%3a27%3a47%3a00&Te stType=ECG&Site=14&OutputTy pe=PDF&Ext=PDF [facility] 300 Work Phone: Please see physicia n note for formal interpretation confirmed by Scribe [facility] 300 Work Phone: Normal [facility] 300 Work Phone: [phone] [facility] 300 Work Phone: [phone] [facility] 300 Work Phone: [phone] [facility] 300 Work Phone: [phone] [facility] 300 Work Phone: [phone] [facility] 300 Work Phone: [phone] [facility] 300 Work Phone: [phone] [facility] 300 Work Phone: [phone] [facility] 300 Work Phone: [phone] [facility] 300 Work Phone: [phone] [facility] 300 Work Phone: [phone] [facility] 300 Work Phone: [phone] [facility] 300 Work Phone: [phone] [facility] 300 Work Phone: >60 >60 [facility] 300 Work Phone: Comment on above: CALCULATIONS OF MICHAEL MATED GFR ARE PERFORMED USING THE MDRD STUDY EQUATION FOR THE IDMS-TRACEABLE CREATININE METHODS. CLIN CHEM 2007;53:766-72 Radiologyon 10-28-2020 XR Ankle 3 Views [facility] Work Phone: Troponin I, Serumon 10-29-19 21 Troponin I.cardiac [Mass/Vol] ng/mL See Below -[facility] 300 Work Phone: Comment on above: Reference Range: 0.0 0 - 0.03LESS THAN 0.04 NG/ML: NEGATIVEREPEAT TESTING IN THREE TO SIX HOURSIF CLINICALLY INDICATED.0.04 - 0.5 NG/ML: CONSISTENT WITH POSSIBLECARDIAC DAMAGE AND POSSIBLE INCREASEDCLINICAL RISK.SERIAL MEASUREMENTS MAY HELP ASSESS EXTENT OFMYOCARDIAL DAMAGE.>0.5 NG/ML: CONSISTENT WITH CARDIAC DAMAGE,INCREASED CLINICAL RISK AND MYOCARDIALINFARCTION. SERIAL MEASUREMENTS MAY HELPASSESS EXTENT OF MYOCARDIAL DAMAGE..Note: Troponin I testing is performed using different testing methodology at [facility] than at other [facility]. Direct result comparisons should only be made within the same method. Urinalysison 10-28-2020 Color (U) Yellow See Below [facility] 300 Work Phone: Comment on above: Reference Range: STR AW,YELLOW Glucose Ql (U) >=500(3+) Abnormal NEGATIVE [facility] 300 Work Phone: Ketones Ql (U) 20(1+) Abnormal NEGATIVE [facility] 300 Work Phone: [phone] Leukocyte esterase Test strip Ql (U) Negative NEGATIVE -[facility] 300 Work Phone: [phone] pH (U) 5.0 [pH] 5.0 - 8.0 [facility] 300 Work Phone: [phone] Protein (U) [Mass/Vol] Negative NEGATIVE -[facility] 300 Work Phone: [phone] RBC (U) [#/Vol] Negative NEGATIVE [facility] 300 Work Phone: Specific gravity (U) [Rel density] 1.039 1 above high threshold See Below [facility] 300 Work Phone: Comment on above: Reference Range: 1.0 05 - 1.[address] [facility] 300 Work Phone: Urinalysis Negative NEGATIVE [facility] 300 Work Phone: Urinalysis <2.0 0.0 - 1.9 [facility] 300 Work Phone: Mamm - Screening Mammogram w / Tomosynthesison 10-11-2020 MG Breast Screening Normal [place] [address] [employer] Work Phone: LMPon 09-02-2020 Last menstrual period start date fitz [place] [address] [employer] Work Phone: Laboratory - Cytologyon 08-06 Cytology report Cyto stain.thin prep Doc (Cvx[address]Vag) [address] Work Phone: Complete Blood Count + Diffe rentialon 01-17-2019 Basophils (Bld) [#/Vol] 0.10 {x10E9/L} See Below [facility] Work Phone: Comment on above: Reference Range: 0.0 0 - 0.10 Basophils/100 WBC (Bld) 0.8 % 0.0 - 2.0 [facility] Work Phone: Eosinophils (Bld) [#/Vol] 0.30 {x10E9/L} See Below [facility] Work Phone: Comment on above: Reference Range: 0.0 0 - 0.70 Eosinophils/100 WBC (Bld) 3.4 % 0.0 - 6.0 [facility] Work Phone: Erythrocyte distribution width (RBC) [Ratio] 14.3 % See Below [facility] Work Phone: Comment on above: Reference Range: 11. 5 - 14.5 Hematocrit (Bld) [Volume fraction] 45.1 % See Below [facility] Work Phone: Comment on above: Reference Range: 36. 0 - 46.0 Hemoglobin (Bld) [Mass/Vol] 14.6 g/dL See Below [facility] Work Phone: Comment on above: Reference Range: 12. 0 - 16.0 Lymphocytes (Bld) [#/Vol] 3.80 {x10E9/L} See Below [facility] [employer] [facility] Work Phone: Comment on above: Reference Range: 1.2 0 - 4.80 Lymphocytes/100 WBC (Bld) 41.3 % See Below [facility] Work Phone: Comment on above: Reference Range: 13. 0 - 44.0 MCHC (RBC) [Mass/Vol] 32.4 g/dL See Below [facility] Work Phone: Comment on above: Reference Range: 32. 0 - 36.0 MCV (RBC) [Entitic vol] 87 fL 80 - 100 [facility] Work Phone: Monocytes (Bld) [#/Vol] 0.80 {x10E9/L} See Below [facility] [employer] [facility] Work Phone: Comment on above: Reference Range: 0.1 0 - 1.00 Monocytes/100 WBC (Bld) 9.0 % 2.0 - 10.0 [facility] Work Phone: Neutrophils (Bld) [#/Vol] 4.20 {x10E9/L} See Below [facility] [employer] [facility] Work Phone: Comment on above: Reference Range: 1.2 0 - 7.70 Neutrophils/100 WBC (Bld) 45.5 % See Below [facility] [employer] [facility] Work Phone: Comment on above: Reference Range: 40. 0 - 80.0 Platelets (Bld) [#/Vol] 258 {x10E9/L} 150 - 450 [facility] Work Phone: RBC (Bld) [#/Vol] 5.21 {x10E12/L} above high threshold See Below [facility] Work Phone: Comment on above: Reference Range: 4.0 0 - 5.20 WBC (Bld) [#/Vol] 0.1 {/100_WBC} [facility] Work Phone: WBC (Bld) [#/Vol] 9.2 {x10E9/L} 4.4 - 11.3 - [facility] Work Phone: Imm/Pathon 01-17-2019 EBV early IgM IA Qn (S) Negative NEGATIVE [facility] Work Phone: Metabolic Panelon 01-17-2019 ALP [Catalytic activity/Vol] 74 U/L 33 - 110 [facility] Work Phone: Anion gap [Moles/Vol] 12 mmol/L 10 - 20 [facility] Work Phone: Bilirubin [Mass/Vol] 0.7 mg/dL 0.0 - 1.2 [facility] Work Phone: Calcium [Mass/Vol] 8.7 mg/dL 8.6 - 10.3 [facility] Work Phone: Chloride [Moles/Vol] 101 mmol/L 98 - 107 [facility] Work Phone: CO2 [Moles/Vol] 30 mmol/L 21 - 32 [facility] Work Phone: Creatinine [Mass/Vol] 0.57 mg/dL See Below [facility] Work Phone: Comment on above: Reference Range: 0.5 0 - 1.05 Glucose [Mass/Vol] 103 mg/dL above high threshold 74 - 99 [facility] [employer] [facility] Work Phone: Potassium [Moles/Vol] 3.5 mmol/L 3.5 - 5.3 [facility] Work Phone: Protein [Mass/Vol] 7.0 g/dL 6.4 - 8.2 [facility] [employer] [facility] Work Phone: Sodium [Moles/Vol] 139 mmol/L 136 - 145 [facility] [employer] [facility] Work Phone: Urea nitrogen [Mass/Vol] 16 mg/dL 6 - 23 [facility] Work Phone: Otheron 01-17-2019 Albumin BCP dye [Mass/Vol] 4.1 g/dL 3.4 - 5.0 [facility] Work Phone: ALT With P-5'-P [Catalytic activity/Vol] 35 U/L 7 - 45 [facility] Work Phone: Comment on above: Patients treated wit h Sulfasalazine may generate falsely decreased results for ALT. AST With P-5'-P [Catalytic activity/Vol] 30 U/L 9 - 39 [facility] Work Phone: EBV capsid IgG IA Qn (S) Positive Abnormal NEGATIVE [facility] Work Phone: EBV capsid IgM IA Qn (S) Negative NEGATIVE [facility] Work Phone: EBV nuclear IgG IA Qn (S) Positive Abnormal NEGATIVE [facility] Work Phone: >60 >60 [facility] Work Phone: Comment on above: CALCULATIONS OF MICHAEL MATED GFR ARE PERFORMED USING THE MDRD STUDY EQUATION FOR THE IDMS-TRACEABLE CREATININE METHODS. CLIN CHEM 2007;53:766-72 SEE BELOW [employer] [facility] Work Phone: Comment on above: . EBV INTERPRETATION CHART. VCA-IGG VCA-IGM NA-IGG EA-IGG. PRIMARY ACUTE +/- +/- - +/-LATE ACUTE + +/- +/- +/-RECOVERING + - - +PREVIOUS INFECTION + - +/- - Estradiolon 11-24-2018 Estradiol Lvl 256.4 pg/mL Normal [facility] Comment on above: Result Comment: Adul t Female: Follicular phase 12.5 - 166.0 Ovulation phase 85.8 - 498.0 Luteal phase 43.8 - 211.0 Postmenopausal <6.0 - 54.7 1st trimester 215.0 - >4300.0 Girls (1-10 years) 6.0 - 27.0 Estephania ECLIA methodology Performed At: [address] [id number] Misbah Everett PhD Ph:[phone] Performed By: #### 2 [id number] #### RIKI RemHemo [facility] [place] [address] FSHon 11-24-2018 FSH 14.2 mIU/mL Normal [facility] Comment on above: Result Comment: Adul t Female: Follicular phase 3.5 - 12.5 Ovulation phase 4.7 - 21.5 Luteal phase 1.7 - 7.7 Postmenopausal 25.8 - 134.8 Performed At: [employer] [facility] [id number] Misbah Everett PhD Ph:[phone] Performed By: #### 2 [id number] #### RIKI RemHemo [address] [place] [address] CMPon 11-23-2018 Albumin [Mass/Vol] 4.0 g/dL Normal 3.4-5.0 [facility] Comment on above: Performed By: #### 2 [id number] #### RIKI RemHemo [address] [place] [address] Albumin/Globulin [Mass ratio] 1.4 {ratio} Normal 1.1-1.9 [facility] Comment on above: Performed By: #### 2 [id number] #### RIKI RemHemo [address] [place] [address] Alk Phos 69 Int._Unit/L Normal 33-110 [facility] Comment on above: Performed By: #### 2 [id number] #### RIKI RemHemo [address] [place] [address] ALT [Catalytic activity/Vol] 31 Int._Unit/L Normal 7-45 [facility] Comment on above: Performed By: #### 2 [id number] #### RIKI RemHemo [address] [place] [address] Anion gap [Moles/Vol] 11 mmol/L Normal 10-20 [facility] Comment on above: Performed By: #### 2 [id number] #### RIKI LittleHemo [address] [place] [address] AST [Catalytic activity/Vol] 30 Int._Unit/L Normal 9-39 [facility] Comment on above: Performed By: #### 2 [id number] #### RIKI RemHemo [address] [place] [address] Bili Total 0.63 mg/dL Normal 0.00-1.20 [facility] Comment on above: Performed By: #### 2 [id number] #### RIKI RemHemo [address] [place] [address] Calcium [Mass/Vol] 8.6 mg/dL Normal 8.6-10.3 [facility] Comment on above: Performed By: #### 2 [id number] #### RIKI LittleHemo [address] [place] [address] Chloride [Moles/Vol] 104 mmol/L Normal 98-107 [facility] Comment on above: Performed By: #### 2 [id number] #### RIKI RemHemo [address] [place] [address] CO2 [Moles/Vol] 31.0 mmol/L Normal 21.0-32.0 [facility] Comment on above: Performed By: #### 2 [id number] #### RIKI RemHemo [address] [place] [address] Creatinine [Mass/Vol] 0.5 mg/dL Normal 0.5-1.1 [facility] Comment on above: Performed By: #### 2 [id number] #### RIKI LittleHemo [address] [place] [address] Globulin (S) [Mass/Vol] 3.0 g/dL Normal 2.0-4.0 [facility] Comment on above: Performed By: #### 2 [id number] #### RIKI LittleHemo [address] [place] [address] Glucose [Mass/Vol] 156 mg/dL High 70-99 [facility] Comment on above: Performed By: #### 2 [id number] #### RIKI LittleHemo [address] [place] [address] Potassium [Moles/Vol] 4.5 mmol/L Normal 3.5-5.3 [facility] Comment on above: Performed By: #### 2 [id number] #### RIKI LittleHemo [address] [place] [address] Protein [Mass/Vol] 6.8 g/dL Normal 6.4-8.2 [facility] Comment on above: Performed By: #### 2 846066 #### RIKI LittleHemo [address] [place] [address] Sodium [Moles/Vol] 141 mmol/L Normal 136-145 [facility] Comment on above: Performed By: #### 2 147588 #### RIKI LittleHemo [address] [place] [address] Urea nitrogen [Mass/Vol] 10 mg/dL Normal 6-23 [facility] Comment on above: Performed By: #### 2 [id number] #### RIKI RemHemo [address] [place] [address] Urea nitrogen/Creatinin e [Mass ratio] 20.0 ratio Normal 5.4-30.0 [facility] Comment on above: Performed By: #### 2 [id number] #### RIKI RemHemo [address] [place] [address] QgtH5szl 11-23-2018 HbA1c (Bld) [Mass fraction] 9.5 % High 4.0-6.3 [facility] Comment on above: Performed By: #### 2 669298 #### RIKI LittleHemo [address] [place] [address] Lipid Profileon 11-23-2018 Cholesterol [Mass/Vol] 179 mg/dL Normal 0-199 [facility] Comment on above: Result Comment: HIPOLITO Jewell CHOLEESTEROL: <200 NORMAL 200 - 239 BORDERLINE HIGH >240 HIGH Performed By: #### 2 [id number] #### RIKI Alvareso [address] [place] [address] Cholesterol in HDL [Mass/Vol] 54 mg/dL Normal 40-60 [facility] Comment on above: Performed By: #### 2 998515 #### RIKI LittleHemo [address] [place] [address] Cholesterol in LDL [Mass/Vol] 100 mg/dL Normal 0-130 [facility] Comment on above: Result Comment: <100 OPTIMAL 100-129 NEAR / ABOVE OPTIMAL 130-159 BORDERLINE HIGH 160-189 HIGH >190 VERY HIGH CALC LDL NOT VALID WHEN TRIGLYCERIDE IS >400 MG/DL Performed By: #### 2 [id number] #### RIKI LittleHemo [address] [place] [address] Cholesterol in VLDL [Mass/Vol] 25 mg/dL Normal 0-40 [facility] Comment on above: Performed By: #### 2 [id number] #### RIKI LittleHemo [address] [place] [address] Triglyceride [Mass/Vol] 124 mg/dL Normal 0-149 [facility] Comment on above: Result Comment: AGE DESIRABLE BORDERLINE HIGH 91 D - 9 Y 0 - 74 75 - 99 > 100 10 - 19 Y 0 - 89 90 - 129 > 130 20 -24 Y 0 - 114 115 - 149 > 150 > 25 0 - 149 150 - 199 200 - 499 Performed By: #### 2 [id number] #### RIKI LittleHemo [facility]5 [place] [address] eGFRon 11-23-2018 GFR/1.73 sq M predicted among non-blacks MDRD (S/P/Bld) [Vol rate/Area] mL/min/{1.73_m2} Normal [facility] Comment on above: Order Comment: Order added by Discern Expert. Performed By: #### 2 [id number] #### RIKI Kofi [address] [place] [id number] CNOVon 11-16-2018 CNOV Office Visit (WOOB) NADIA ADDISON ([id number]) 1970 F Date Time Provider Department 11/16/18 10:00 AM ARLETTE DOMINGUEZ (SOFTWARE CONFIGURATION ANALYST) WOOB During your visit today, we recorded the following information about you: Blood pressure Weight Height Last Period 122/88 108.9 kg 1.651 m 07/05/17 Arlette Dominguez APRN.CNP 11/16/2018 10:32 AM Signed Naidaguillermina Addison is a 48 year old who presents for her annual gynecologic exam without complaints. Took cyclic Provera x 2 but did not like the way it made her feel so she stopped taking it- no menses since 07/22. Later in visit, patient admits to having some bleeding for 2-3 days after kidney stent was removed in 04/2018 but thinks was related to stent removal. States she mostly had bleeding just when wiping Menses: no regular menses -see above. Probably perimenopausal Contraception: none HPV vaccine: No Last Pap: 04/06/2017 normal HPV: 04/01/2017 negative History of abnormal pap: No Last mammogram: 2018normal Sexually active: Yes Patient concerns for STD exposure: No. Time with current partner: 32 years Pain with intercourse: No Postcoital bleeding: No Hot flashes: No Night sweats: No Exercise: no Diet: not very balanced, DM II OB History T2 L2 SAB0 TAB0 Ectopic0 Multiple0 Live Births2 PAST MEDICAL HISTORY Diagnosis Date - Diabetes mellitus, type 2 (HCC) - Fibromyalgia - Hypertension PAST SURGICAL HISTORY Procedure Laterality Date - DANDC DIAG AND/OR THERAP, NOT OB 10/2013 - EXC INGROWN TOE NAIL REMOVAL Bilateral 15 years old - LIVER BX PERC NEEDLE - US 2009 benign- fatty liver No family history on file.SOCIAL HISTORY Social History Tobacco Use - Smoking status: Never Smoker - Smokeless tobacco: Never Used Substance Use Topics - Alcohol use: Yes Comment: rare - Drug use: No REVIEW OF SYSTEMS Abdomen: No abdominal pain, nausea, vomiting, diarrhea, or constipation. No bloating, early satiety, indigestion, or increased flatulence. Bladder: No dysuria, gross hematuria, urinary frequency, urinary urgency, or incontinence. Breast: No breast lumps, nipple d/c, overlying skin changes, redness or skin retraction and itching upper right breast - has had before to same breast, last had it last fall. . Allergies and current medication updated:Yes EXAM: BP 122/88 Ht 5' 5 (1.65m) Wt 240 lb (108.9kg) LMP 07/05/2017 BMI 39.94 kg/(m2). GENERAL: pleasant, female in no apparent distress HEENT: Normocephalic, atraumatic, mucus membranes moist and no lesions NECK: Supple, full range of motion, no adenopathy and thyroid normal DERMATOLOGY: Normal, without lesions, non-icteric and non-hirsute BREAST: soft, non-tender, symmetric, no dominant mass, normal nipple-areolar complex, no lymphadenopathy and no nipple discharge, rash to upper right breast with scratch knight. CHEST: Normal inspiratory effort ABDOMEN: soft, non-tender and no masses PELVIC: external genitalia normal, normal Bartholin's glands, urethra, Lansdale's glands, no vulvar lesions, no cervical lesions, good vaginal support, physiologic discharge present, normal appearing perineal body and perianal region BIMANUAL: uterus normal size, shape and consistency, no adnexal masses and non-tender RECTOVAGINAL: deferred. NEURO: alert and oriented x3,exam grossly non-focal EXTREMITIES: normal ASSESSMENT/PLAN: 1) Health maintenance: Pap/HPV up to date. Mammogram up to date . Nutrition, exercise and routine health maintenance exams reviewed. Calcium/Vitamin D supplementation information provided. 2) Contraception: none. Contraceptive options reviewed and information provided. 3) STD screening: Declined STD check. 4. Irregular menstrual cycle - ICD9: 626.4, ICD10: N92.6 - ESTRADIOL-17B BLD - FSH BLD 5) Will notify of lab results. Follow up one year or sooner as needed Arlette Dominguez APRN.SOFTWARE CONFIGURATION ANALYST Referring Provider: SELF [[id number]] Allergies As of Date: 11/16/2018 Noted Allergy Reaction AZITHROMYCIN 07/19/2015 8 - GI Upset BACTRIM (SULFAMETHOXAZOLE-TRIMETH*0 03/29/2017 9 - Itching DEMEROL (MEPERIDINE (PF)) 03/29/2017 14 - Other: See Comments Comments: bp dropped ERYTHROMYCIN 07/19/2015 8 - GI Upset IMITREX (SUMATRIPTAN) 03/29/2017 14 - Other: See Comments Comments: Vision changes ZOMIG (ZOLMITRIPTAN) 03/29/2017 14 - Other: See Comments Comments: Vision changes Date Reviewed: 11/16/2018 Reviewed by: Arlette (Boring Machine Feeder) Edis - Fully Assessed Primary Visit Diagnosis:Encounter for gynecological examination (general) (routine) without abnormal findings [Z01.419] Other Visit Diagnoses:Visit for screening mammogram [Z12.31] Irregular menstrual cycle [N92.6] Order(s):ESTRADIOL-17B BLD [SQE2] Order #: [id number] FUTURE FSH BLD [SQFSH] Order #: [id number] FUTURE Prescriptions as of 11/16/2018 Sig: DULAGLUTIDE 1.5 MG/0.5 ML SUB* TOPROL XL 50 MG TABLET,EXTEND* METFORMIN ER 750 MG TABLET,EX* twice daily. LEVEMIR FLEXTOUCH U-100 INSUL* GLIMEPIRIDE 4 MG TABLET FEXOFENADINE 180 MG TABLET Take 180 mg by mouth. OMEPRAZOLE 20 MG CAPSULE,ASIF* MULTIVITAMIN ORAL Take by mouth. VITAMIN C ORAL Take by mouth. VITAMIN D-3 ORAL Take by mouth. VITAMIN E ORAL Take by mouth. OMOGSAO-DELMEPPFG-YJEW ORAL Take by mouth. 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 10 days a month as needed to start menses Patient not taking: Reported on 11/16/2018 Disc: Reason for discontinue is not on file. Disposition: Return in 1 year (on 11/17/2019) for Annual Exam. Follow-up and Disposition History Recorded Encounter Status:Closed by ARLETTE DOMINGUEZ on 11/16/18 Normal [facility] PROGRESSon 11-16-2018 PROGRESS HNO ID: [id number] Author: Arlette Dominguez Service: ? Author Type: Nurse Practitioner Type: Progress Notes Filed: 11/16/2018 10:32 AM Note Text: Nadia Addison is a 48 year old who presents for her annual gynecologic exam without complaints. Took cyclic Provera x 2 but did not like the way it made her feel so she stopped taking it- no menses since 07/22. Later in visit, patient admits to having some bleeding for 2-3 days after kidney stent was removed in 04/2018 but thinks was related to stent removal. States she mostly had bleeding just when wiping Menses: no regular menses -see above. Probably perimenopausal Contraception: none HPV vaccine: No Last Pap: 04/06/2017 normal HPV: 04/01/2017 negative History of abnormal pap: No Last mammogram: 2019normal Sexually active: Yes Patient concerns for STD exposure: No. Time with current partner: 32 years Pain with intercourse: No Postcoital bleeding: No Hot flashes: No Night sweats: No Exercise: no Diet: not very balanced, DM II OB History T2 L2 SAB0 TAB0 Ectopic0 Multiple0 Live Births2 PAST MEDICAL HISTORY Diagnosis Date - Diabetes mellitus, type 2 (HCC) - Fibromyalgia - Hypertension PAST SURGICAL HISTORY Procedure Laterality Date - DANDC DIAG AND/OR THERAP, NOT OB 10/2013 - EXC INGROWN TOE NAIL REMOVAL Bilateral 15 years old - LIVER BX PERC NEEDLE - US 2009 benign- fatty liver No family history on file.SOCIAL HISTORY Social History Tobacco Use - Smoking status: Never Smoker - Smokeless tobacco: Never Used Substance Use Topics - Alcohol use: Yes Comment: rare - Drug use: No REVIEW OF SYSTEMS Abdomen: No abdominal pain, nausea, vomiting, diarrhea, or constipation. No bloating, early satiety, indigestion, or increased flatulence. Bladder: No dysuria, gross hematuria, urinary frequency, urinary urgency, or incontinence. Breast: No breast lumps, nipple d/c, overlying skin changes, redness or skin retraction and itching upper right breast - has had before to same breast, last had it last fall. . Allergies and current medication updated:Yes EXAM: BP 122/88 Ht 5' 5 (1.65m) Wt 240 lb (108.9kg) LMP 07/05/2017 BMI 39.94 kg/(m2). GENERAL: pleasant, female in no apparent distress HEENT: Normocephalic, atraumatic, mucus membranes moist and no lesions NECK: Supple, full range of motion, no adenopathy and thyroid normal DERMATOLOGY: Normal, without lesions, non-icteric and non-hirsute BREAST: soft, non-tender, symmetric, no dominant mass, normal nipple-areolar complex, no lymphadenopathy and no nipple discharge, rash to upper right breast with scratch knight. CHEST: Normal inspiratory effort ABDOMEN: soft, non-tender and no masses PELVIC: external genitalia normal, normal Bartholin's glands, urethra, Lansdale's glands, no vulvar lesions, no cervical lesions, good vaginal support, physiologic discharge present, normal appearing perineal body and perianal region BIMANUAL: uterus normal size, shape and consistency, no adnexal masses and non-tender RECTOVAGINAL: deferred. NEURO: alert and oriented x3,exam grossly non-focal EXTREMITIES: normal ASSESSMENT/PLAN: 1) Health maintenance: Pap/HPV up to date. Mammogram up to date . Nutrition, exercise and routine health maintenance exams reviewed. Calcium/Vitamin D supplementation information provided. 2) Contraception: none. Contraceptive options reviewed and information provided. 3) STD screening: Declined STD check. 4. Irregular menstrual cycle - ICD9: 626.4, ICD10: N92.6 - ESTRADIOL-17B BLD - FSH BLD 5) Will notify of lab results. Follow up one year or sooner as needed Arlette Dominguez APRN.SOFTWARE CONFIGURATION ANALYST Normal [facility] XR Abdomen 1 Viewon 10-19-19 19 XR Abdomen 1 View Exam Date/Time: 10/17/2018 09:52 EDT Reason for Exam: Kidney stone Report STUDY: XR Abdomen 1 View; 10/17/2018 9:52 am INDICATION: Kidney stone. COMPARISON: None. ACCESSION NUMBER(S): [id number] ORDERING CLINICIAN: Klaus Reynoso FINDINGS: Nonobstructive bowel gas pattern. No radiopaque calculus is seen in the kidneys or ureters on either side. Visualized lungs are clear. Osseous structures demonstrate no acute bony changes. IMPRESSION: 1. No evidence of urolithiasis. FINAL REPORT Dictated: 10/18/2018 10:41 am Evans Almaguer MD Signed (Electronic Signature): 10/18/2018 10:41 am Signed by: Evans Almaguer MD Technologist: THEO Normal [facility] MA Mamm Screen w/CAD if perf ormed bilaton 06-08-2018 MA Mamm Screen w/CAD if performed bilat Exam Date/Time: 06/08/2018 07:49 EDT Reason for Exam: SCREENING;Screening Report STUDY: Digital mammography screening; 06/08/2018 7:49 am ACCESSION NUMBER(S): [id number] ORDERING CLINICIAN: Hernan Mckenzie INDICATION: Screening. COMPARISON: Comparison is made to prior digital mammograms dated 02/15/2017 and 09/15/2015 FINDINGS: CC and MLO 2D digital mammographic images of the bilateral breasts were obtained. The breast tissue is almost entirely fatty. No discrete mass or focal asymmetry is identified. No suspicious microcalcifications or foci of architectural distortion are seen. There has been no significant change. This study was interpreted with CAD. IMPRESSION: No mammographic evidence of malignancy. BI-RADS CATEGORY: Category: 1 - Negative. Recommendation: Normal Interval Follow-up, Over Age 40. Recall Interval: 12 Months. Breast Density: Fatty. FINAL REPORT Dictated: 06/08/2018 9:22 am James Howard MD Signed (Electronic Signature): 06/08/2018 9:22 am Signed by: James Howard MD Technologist: ELLEN Assessment: BI-RADS Category 1-Negative Recommendation: Normal interval follow-up Normal [facility] Auto Diffon 05-23-2018 Basophils (Bld) [#/Vol] 0.1 E3/mcL Normal 0.0-0.2 [facility] Comment on above: Order Comment: Order Added by Discern Expert. Performed By: #### 8 [id number] #### RIKI Urinalysis Automated Subsection [facility] [place] [address] Basophils/100 WBC (Bld) 0.7 % Normal 0.0-2.0 [facility] Comment on above: Order Comment: Order Added by Discern Expert. Performed By: #### 8 [id number] #### RIKI Urinalysis Automated Subsection [address] [place] [address] Eos Absolute 0.2 E3/mcL Normal 0.0-0.7 [facility] Comment on above: Order Comment: Order Added by Artie Expert. Performed By: #### 8 [id number] #### RIKI Urinalysis Automated Subsection [address] [place] [address] Eosinophils/100 WBC (Bld) 2.9 % Normal 0.0-11.0 [facility] Comment on above: Order Comment: Order Added by Artie Expert. Performed By: #### 8 [id number] #### RIKI Urinalysis Automated Subsection [address] [place] [address] Lymphocytes (Bld) [#/Vol] 2.3 E3/mcL Normal 1.2-3.4 [facility] Comment on above: Order Comment: Order Added by Artie Expert. Performed By: #### 8 [id number] #### RIKI Urinalysis Automated Subsection [address] [place] [address] Lymphocytes/100 WBC (Bld) 30.0 % Normal 20.0-55.0 [facility] Comment on above: Order Comment: Order Added by Artie Expert. Performed By: #### 8 [id number] #### RIKI Urinalysis Automated Subsection [address] [place] [address] [place] Absolute 0.6 E3/mcL Normal 0.0-0.7 [facility] Comment on above: Order Comment: Order Added by Artie Expert. Performed By: #### 8 [id number] #### RIKI Urinalysis Automated Subsection [address] [place] [address] Monocytes/100 WBC (Bld) 7.4 % Normal 0.0-10.0 [facility] Comment on above: Order Comment: Order Added by Discern Expert. Performed By: #### 8 [id number] #### RIKI Urinalysis Automated Subsection [address] [place] [address] Neutro Absolute 4.5 E3/mcL Normal 1.4-6.5 [facility] Comment on above: Order Comment: Order Added by Discern Expert. Performed By: #### 8 [id number] #### RIKI Urinalysis Automated Subsection [address] [place] [address] Neutro Auto 59.0 % Normal 37.0-75.0 [facility] Comment on above: Order Comment: Order Added by Discern Expert. Performed By: #### 8 [id number] #### RIKI Urinalysis Automated Subsection [address] [place] [address] CBC w/ Auto Diffon 9 Erythrocyte distribution width (RBC) [Ratio] 15.1 % High 11.5-14.5 [facility] Comment on above: Performed By: #### 8 [id number] #### RIKI Urinalysis Automated Subsection [address] [place] [address] Hematocrit (Bld) [Volume fraction] 43.6 % Normal 36.0-48.0 [facility] Comment on above: Performed By: #### 8 [id number] #### RIKI Urinalysis Automated Subsection [address] [place] [address] Hemoglobin (Bld) [Mass/Vol] 14.0 g/dL Normal 12.0-16.0 [facility] Comment on above: Performed By: #### 8 [id number] #### RIKI Urinalysis Automated Subsection [address] [place] [address] MCH (RBC) [Entitic mass] 28.1 pg Normal 27.0-31.0 [facility] Comment on above: Performed By: #### 8 [id number] #### RIKI Urinalysis Automated Subsection [address] [place] [address] MCHC (RBC) [Mass/Vol] 32.1 g/dL Low 33.0-37.0 [facility] Comment on above: Performed By: #### 8 [id number] #### RIKI Urinalysis Automated Subsection [facility] [place] [address] MCV (RBC) [Entitic vol] 87.5 fL Normal 78.0-100.0 [facility] Comment on above: Performed By: #### 8 [id number] #### RIKI Urinalysis Automated Subsection [facility] [place] [address] Platelet mean volume (Bld) [Entitic vol] 10.2 fL Normal 7.4-11.0 [facility] Comment on above: Performed By: #### 8 [id number] #### RIKI Urinalysis Automated Subsection [address] [place], [place] [address] Platelets (Bld) [#/Vol] 201 E3/mcL Normal 130-400 [facility] Comment on above: Performed By: #### 8 [id number] #### RIKI Urinalysis Automated Subsection [address] [place] [address] 23597 RBC (Bld) [#/Vol] 4.99 E6/mcL Normal 3.90-5.40 [facility] Comment on above: Performed By: #### 8 [id number] #### RIKI Urinalysis Automated Subsection [address] [place], [place] [address] WBC (Bld) [#/Vol] 7.6 E3/mcL Normal 3.6-11.0 [facility] Comment on above: Performed By: #### 8 [id number] #### RIKI Urinalysis Automated Subsection [address] [place] [address] CMPon 05-23-2018 Albumin [Mass/Vol] 4.1 g/dL Normal 3.4-5.0 [facility] Comment on above: Performed By: #### 8 [id number] #### RIKI Urinalysis Automated Subsection [address] [place] [address] Albumin/Globulin [Mass ratio] 1.5 {ratio} Normal 1.1-1.9 [facility] Comment on above: Performed By: #### 8 [id number] #### RIKI Urinalysis Automated Subsection [address] [place] [address] Alk Phos 72 Int._Unit/L Normal 33-110 [facility] Comment on above: Performed By: #### 8 [id number] #### RIKI Urinalysis Automated Subsection [facility] [place] [address] ALT [Catalytic activity/Vol] 37 Int._Unit/L Normal 7-45 [facility] Comment on above: Performed By: #### 8 [id number] #### RIKI Urinalysis Automated Subsection [address] [place] [address] Anion gap [Moles/Vol] 10 mmol/L Normal 10-20 [facility] Comment on above: Performed By: #### 8 [id number] #### RIKI Urinalysis Automated Subsection [address] [place] [address]11 AST [Catalytic activity/Vol] 31 Int._Unit/L Normal 9-39 [facility] Comment on above: Performed By: #### 8 [id number] #### RIKI Urinalysis Automated Subsection [address] [place] [address] Bili Total 0.69 mg/dL Normal 0.00-1.20 [facility] Comment on above: Performed By: #### 8 [id number] #### RIKI Urinalysis Automated Subsection [address] [place] [address] Calcium [Mass/Vol] 8.7 mg/dL Normal 8.6-10.3 [facility] Comment on above: Performed By: #### 8 [id number] #### RIKI Urinalysis Automated Subsection [address] [place] [address]76 Chloride [Moles/Vol] 100 mmol/L Normal 98-107 [facility] Comment on above: Performed By: #### 8 [id number] #### RIKI Urinalysis Automated Subsection [address] [place] [address]14 CO2 [Moles/Vol] 31.0 mmol/L Normal 21.0-32.0 [facility] Comment on above: Performed By: #### 8 [id number] #### RIKI Urinalysis Automated Subsection [address] [place] [address]89 Creatinine [Mass/Vol] 0.6 mg/dL Normal 0.5-1.1 [facility] Comment on above: Performed By: #### 8 [id number] #### RIKI Urinalysis Automated Subsection [address] [place] [address]287 Globulin (S) [Mass/Vol] 3.0 g/dL Normal 2.0-4.0 [facility] Comment on above: Performed By: #### 8 [id number] #### RIKI Urinalysis Automated Subsection [address] [place] [address]69[address] Glucose [Mass/Vol] 187 mg/dL High 70-99 [facility] Comment on above: Performed By: #### 8 [id number] #### RIKI Urinalysis Automated Subsection [address] [place], [place] [address] Potassium [Moles/Vol] 4.0 mmol/L Normal 3.5-5.3 [facility] Comment on above: Performed By: #### 8 [id number] #### RIKI Urinalysis Automated Subsection [address] [place] [address] Protein [Mass/Vol] 6.8 g/dL Normal 6.4-8.2 [facility] Comment on above: Performed By: #### 8 [id number] #### RIKI Urinalysis Automated Subsection [address] [place] [address] Sodium [Moles/Vol] 137 mmol/L Normal 136-145 [facility] Comment on above: Performed By: #### 8 [id number] #### RIKI Urinalysis Automated Subsection [address] [place] [address] Urea nitrogen [Mass/Vol] 10 mg/dL Normal 6-23 [facility] Comment on above: Performed By: #### 8 [id number] #### RIKI Urinalysis Automated Subsection [address] [place], [place] [address] Urea nitrogen/Creatinin e [Mass ratio] 16.7 ratio Normal 5.4-30.0 [facility] Comment on above: Performed By: #### 8 [id number] #### RIKI Urinalysis Automated Subsection [address] [place], [place] [address] SkdI3epm 05-23-2018 HbA1c (Bld) [Mass fraction] 7.9 % High 4.0-6.3 [facility] Comment on above: Performed By: #### 8 [id number] #### RIKI Urinalysis Automated Subsection [address] [place], [place] [address] Sed Rate Automatedon 019 Sed Rate Automated 39 mm/hr Normal [facility] Comment on above: Result Comment: AGE- SPECIFIC REFERENCE RANGES FOR SEDIMENTATION RATE AUTOMATED REFERENCE RANGE - MM/HR AGE MEN WOMEN 0-2 0-2 - PUBERTY 3-13 3-13 PUBERTY - 50 YRS 0-15 0-20 > 50 YRS 0-20 0-30 Performed By: #### 8 [id number] #### RIKI Urinalysis Automated Subsection [facility] [place] [address] TSHon 05-23-2018 TSH Qn 1.81 mcIU/mL Normal 0.30-5.60 [facility] Comment on above: Performed By: #### 8 [id number] #### RIKI Urinalysis Automated Subsection [address] [place] [address] Vit B12on 05-23-2018 Cobalamin (Vitamin B12) [Mass/Vol] 1378 pg/mL High 180-914 [facility] Comment on above: Performed By: #### 8 [id number] #### RIKI Urinalysis Automated Subsection [facility] [place] [address] eGFRon 05-23-2018 GFR/1.73 sq M predicted among non-blacks MDRD (S/P/Bld) [Vol rate/Area] mL/min/{1.73_m2} Normal [facility] Comment on above: Order Comment: Order added by Discern Expert. Performed By: #### 8 [id number] #### RIKI Urinalysis Automated Subsection [facility] [place] [address] Influenza A&B Agon 9 Influenzae A Ag Positive Abnormal Negative [facility] Comment on above: Result Comment: Test performed by PCR Testing Performed By: #### 8 [id number] #### RIKI Urinalysis Automated Subsection [facility] [place] [address] Influenzae B Ag Negative Normal Negative [facility] Comment on above: Result Comment: Test performed by PCR Testing Performed By: #### 8 [id number] #### RIKI Urinalysis Automated Subsection [facility] [place] [address] Glucose POCon 05-03-2018 Glucose [Mass/Vol] 121 mg/dL High 70-99 [facility] Comment on above: Performed By: #### 8 [id number] #### RIKI Urinalysis Automated Subsection [address] [place] [address] Calculus Analysison 04-14-19 19 Ammonium Acid Urate Not Performed [facility] Comment on above: Performed By: #### 1 [id number] #### RIKI Send Outs Subsection [address] [place] [address] 924[address] [place] Hydrogen Phos Not Performed [facility] Comment on above: Performed By: #### 1 [id number] #### RIKI Send Outs Subsection [address] [place] [address]99 [place] Oxalate, Dihydrate 80 % [facility] Comment on above: Performed By: #### 1 [id number] #### RIKI Send Outs Subsection [address] [place] [address] CA Oxalate, Monohydr 15 % [facility] Comment on above: Performed By: #### 1 [id number] #### RIKI Send Outs Subsection [address] [place] [address] Calcium Bilirubinate Not Performed [facility] Comment on above: Performed By: #### 1 [id number] #### RIKI Send Outs Subsection [address] [place] [address] 48705 Calcium Carbonate Not Performed [facility] Comment on above: Performed By: #### 1 [id number] #### RIKI Send Outs Subsection [address] [place] [address]472 Calcium Phos 05 % [facility] Comment on above: Performed By: #### 1 [id number] #### RIKI Send Outs Subsection [address] [place] [address] 87869 Cellular Material Not Performed [facility] Comment on above: Performed By: #### 1 [id number] #### RIKI Send Outs Subsection [address] [place] [address]463 Cholesterol [Mass/Vol] Not Performed [facility] Comment on above: Performed By: #### 1 [id number] #### RIKI Send Outs Subsection [address] [place] [address]759 Color (U) Nagy [facility] Comment on above: Performed By: #### 1 [id number] #### RIKI Send Outs Subsection [address] [place] [address] Comment 1 Not Performed [facility] Comment on above: Performed By: #### 1 [id number] #### RIKI Send Outs Subsection [address] [place] [address] Comment 2 Note: [facility] Comment on above: Result Comment: Plea se do not submit specimens on Q-Tips, in tape, on filters, or in liquids such as blood, urine or formalin. This may cause unnecessary biohazards, erroneous results and/or delay in the processing of the specimen. Performed By: #### 1 [id number] #### RIKI Send Outs Subsection [address] [place] [address] Comment 3 Comment [facility] Comment on above: Result Comment: Physician questions regarding Calculi Analysis contact [facility] at: [phone]. Performed By: #### 1 [id number] #### RIKI Send Outs Subsection [address] [place] [address] Composition Comment [facility] Comment on above: Result Comment: Percentage (Represents the % composition) Performed By: #### 1 [id number] #### RIKI Send Outs Subsection [address] [place] [address] Cystine Not Performed [facility] Comment on above: Performed By: #### 1 [id number] #### RIKI Send Outs Subsection [address] [place] [address] Disclaimer: Comment [facility] Comment on above: Result Comment: This test was developed and its performance characteristics determined by [facility]. It has not been cleared or approved by the Food and Drug Administration. Performed At: [address] [id number] Patrick Weiner MD Ph:[phone] Performed By: #### 1 [id number] #### RIKI Send Outs Subsection [address] [place] [address] Dried Blood Not Performed [facility] Comment on above: Performed By: #### 1 [id number] #### RIKI Send Outs Subsection [address] [place] [address] Mag Slinger Phos Not Performed [facility] Comment on above: Performed By: #### 1 [id number] #### RIKI Send Outs Subsection [facility] [place] [address] Newberyite Not Performed [facility] Comment on above: Performed By: #### 1 [id number] #### RIKI Send Outs Subsection [facility] [place] [address] Nidus No Nidus visualized [facility] Comment on above: Performed By: #### 1 [id number] #### RIKI Send Outs Subsection [facility] [place] [id number] Note: Comment [facility] Comment on above: Result Comment: Calculi report without photograph will follow via computer, mail, or office professionals delivery. Performed By: #### 1 [id number] #### RIKI Send Outs Subsection [address] [place] [address] Shell Not Performed [facility] Comment on above: Performed By: #### 1 [id number] #### RIKI Send Outs Subsection [address] [place] [address] Size 6x4x3 [facility] Comment on above: Performed By: #### 1 [id number] #### RIKI Send Outs Subsection [address] [place], [place] [address] Sodium [Moles/Vol] Not Performed [facility] Comment on above: Performed By: #### 1 [id number] #### RIKI Send Outs Subsection [address] [place] [address] Surface Crystals Not Performed [facility] Comment on above: Performed By: #### 1 [id number] #### RIKI Send Outs Subsection [address] [place] [address] Triamterene Not Performed [facility] Comment on above: Performed By: #### 1 [id number] #### RIKI Send Outs Subsection [address] [place], [place] [address] Urate [Mass/Vol] Not Performed [facility] Comment on above: Performed By: #### 1 [id number] #### RIKI Send Outs Subsection [address] [place], [place] [address] Uric Acid Dihydrate Not Performed [facility] Comment on above: Performed By: #### 1 [id number] #### RIKI Send Outs Subsection [address] [place] [address] Glucose POCon 04-11-2018 Glucose [Mass/Vol] 143 mg/dL High 70-99 [facility] Comment on above: Performed By: #### 5 [id number] #### RIKI POC Subsection [address] [place] [address] XR Abdomen 1 Viewon 04-11-19 19 XR Abdomen 1 View Exam Date/Time: 04/10/2018 14:50 EST Reason for Exam: KIDNEY STONE Report STUDY: XR Abdomen 1 View; 04/10/2018 2:50 pm INDICATION: KIDNEY STONE. COMPARISON: CT of the abdomen and pelvis dated 04/05/2018 ACCESSION NUMBER(S): [id number] ORDERING CLINICIAN: Klaus Reynoso FINDINGS: 2 supine AP radiographs of the abdomen were obtained. A small ovoid calcification is seen in the inferior left mid pelvis, likely representing the distal ureteral calculus seen on prior CT. There is a nonobstructive bowel gas pattern present. Free intraperitoneal air and air-fluid levels cannot be excluded without upright or decubitus images. IMPRESSION: Calcification over the left inferior pelvis, likely representing distal ureteral calculus seen on CT. FINAL REPORT Dictated: 04/11/2018 11:03 am James Howard MD Signed (Electronic Signature): 04/11/2018 11:03 am Signed by: James Howard MD Technologist: Leroy [facility] XR Urography Retrograde in O Adam 04-11-2018 XR Urography Retrograde in OR Exam Date/Time: 04/11/2018 12:17 EST Reason for Exam: Kidney stone Report STUDY: XR Urography Retrograde in OR; 04/11/2018 12:17 pm INDICATION: Kidney stone. COMPARISON: None. ACCESSION NUMBER(S): [id number] ORDERING CLINICIAN: Klaus Reynoso TECHNIQUE: A single spot fluoroscopic images of the abdomen were submitted for interpretation. Fluoroscopic time was 12 seconds. FINDINGS: This image demonstrates a double-J ureteral stent overlying the expected location of the left ureter. IMPRESSION: 1. Intraoperative fluoroscopy for localization purposes. FINAL REPORT Dictated: 04/11/2018 12:42 pm James Howard MD Signed (Electronic Signature): 04/11/2018 12:42 pm Signed by: James Howard MD Technologist: FAM Luna [facility] Auto Diffon 04-09-2018 Basophils (Bld) [#/Vol] 0.1 E3/mcL Normal 0.0-0.2 [facility] Comment on above: Order Comment: Order Added by Discern Expert. Performed By: #### 2 [id number] #### RIKI RemHemo [address] [place] [address] Basophils/100 WBC (Bld) 0.9 % Normal 0.0-2.0 [facility] Comment on above: Order Comment: Order Added by Discern Expert. Performed By: #### 2 [id number] #### RIKI RemHemo [address] [place] [address] Eos Absolute 0.2 E3/mcL Normal 0.0-0.7 [facility] Comment on above: Order Comment: Order Added by Discern Expert. Performed By: #### 2 [id number] #### RIKI RemHemo [address] [place] [address] Eosinophils/100 WBC (Bld) 3.1 % Normal 0.0-11.0 [facility] Comment on above: Order Comment: Order Added by Discern Expert. Performed By: #### 2 658423 #### RIKI RemHemo [address] [place] [address] Lymphocytes (Bld) [#/Vol] 2.4 E3/mcL Normal 1.2-3.4 [facility] Comment on above: Order Comment: Order Added by Discern Expert. Performed By: #### 2 902688 #### RIKI RemHemo [address] [place] [address] Lymphocytes/100 WBC (Bld) 31.6 % Normal 20.0-55.0 [facility] Comment on above: Order Comment: Order Added by Discern Expert. Performed By: #### 2 099875 #### RIKI RemHemo [address] [place] [address] [place] Absolute 0.5 E3/mcL Normal 0.0-0.7 [facility] Comment on above: Order Comment: Order Added by Discern Expert. Performed By: #### 2 101776 #### RIKI LittleHemo [address] [place] [address] Monocytes/100 WBC (Bld) 7.1 % Normal 0.0-10.0 [facility] Comment on above: Order Comment: Order Added by Discern Expert. Performed By: #### 2 476762 #### RIKI LittleHemo [address] [place] [address] Neutro Absolute 4.3 E3/mcL Normal 1.4-6.5 [facility] Comment on above: Order Comment: Order Added by Discern Expert. Performed By: #### 2 298268 #### RIKI LittleHemo [address] [place], [place] [address] Neutro Auto 57.3 % Normal 37.0-75.0 [facility] Comment on above: Order Comment: Order Added by Discern Expert. Performed By: #### 2 553062 #### RIKI LittleHemo [address] [place], [place] [address] CBC w/ Auto Diffon 9 Erythrocyte distribution width (RBC) [Ratio] 15.0 % High 11.5-14.5 [facility] Comment on above: Performed By: #### 2 519202 #### RIKI Alvareso [address] [place] [address] Hematocrit (Bld) [Volume fraction] 42.6 % Normal 36.0-48.0 [facility] Comment on above: Performed By: #### 2 174078 #### RIKI Alvareso [address] [place] [address] Hemoglobin (Bld) [Mass/Vol] 13.8 g/dL Normal 12.0-16.0 [facility] Comment on above: Performed By: #### 2 819081 #### RIKI Alvareso [address] [place] [address] MCH (RBC) [Entitic mass] 27.9 pg Normal 27.0-31.0 [facility] Comment on above: Performed By: #### 2 444962 #### RIKI LittleHemo [address] [place], [place] [address] MCHC (RBC) [Mass/Vol] 32.3 g/dL Low 33.0-37.0 [facility] Comment on above: Performed By: #### 2 809175 #### RIKI LittleHemo [address] [place] [address] MCV (RBC) [Entitic vol] 86.2 fL Normal 78.0-100.0 [facility] Comment on above: Performed By: #### 2 497266 #### RIKI AnabelHemo [facility] [place] [address] Platelet mean volume (Bld) [Entitic vol] 9.6 fL Normal 7.4-11.0 [facility] Comment on above: Performed By: #### 2 080086 #### RIKI AnabelHemo [address] [place] [address] Platelets (Bld) [#/Vol] 235 E3/mcL Normal 130-400 [facility] Comment on above: Performed By: #### 2 310576 #### RIKI AnabelHemo [address] [place] [address] RBC (Bld) [#/Vol] 4.94 E6/mcL Normal 3.90-5.40 [facility] Comment on above: Performed By: #### 2 066370 #### RIKI LittleHemo [address] [place] [address] WBC (Bld) [#/Vol] 7.5 E3/mcL Normal 3.6-11.0 [facility] Comment on above: Performed By: #### 2 184206 #### RIKI AnabelHemo [address] [place] [address] CMPon 04-09-2018 Albumin [Mass/Vol] 4.0 g/dL Normal 3.4-5.0 [facility] Comment on above: Performed By: #### 2 920496 #### RIKI AnabelChem [facility] [place] [address] Albumin/Globulin [Mass ratio] 1.6 {ratio} Normal 1.1-1.9 [facility] Comment on above: Performed By: #### 2 805111 #### RIKI RemChem [facility] [place] [address] Alk Phos 83 Int._Unit/L Normal 33-110 [facility] Comment on above: Performed By: #### 2 100310 #### RIKI RemChem [address] [place] [address] ALT [Catalytic activity/Vol] 24 Int._Unit/L Normal 7-45 [facility] Comment on above: Performed By: #### 2 509175 #### RIKI RemChem [address] [place] [address] Anion gap [Moles/Vol] 12 mmol/L Normal 10-20 [facility] Comment on above: Performed By: #### 2 100661 #### [facility] [employer] [facility] [place] [address] AST [Catalytic activity/Vol] 19 Int._Unit/L Normal 9-39 [facility] Comment on above: Performed By: #### 2 060145 #### RIKIVlad [employer]Sh[employer] [address] [place] [address] Bili Total 0.46 mg/dL Normal 0.00-1.20 [facility] Comment on above: Performed By: #### 2 645449 #### RIKI RemChem [address] [place] [address] Calcium [Mass/Vol] 8.9 mg/dL Normal 8.6-10.3 [facility] Comment on above: Performed By: #### 2 203197 #### RIKI RemChem [address] [place] [address] Chloride [Moles/Vol] 103 mmol/L Normal 98-107 [facility] Comment on above: Performed By: #### 2 179922 #### RIKI RemChem [address] [place] [address] CO2 [Moles/Vol] 26.0 mmol/L Normal 21.0-32.0 [facility] Comment on above: Performed By: #### 2 913869 #### [facility] [employer] [address] [place] [address] Creatinine [Mass/Vol] 0.5 mg/dL Normal 0.5-1.1 [facility] Comment on above: Performed By: #### 2 076991 #### RIKI RemChem [address] [place] [address] Globulin (S) [Mass/Vol] 3.0 g/dL Normal 2.0-4.0 [facility] Comment on above: Performed By: #### 2 440214 #### RIKI [address] [address] Glucose [Mass/Vol] 150 mg/dL High 70-99 [facility] Comment on above: Performed By: #### 2 821357 #### RIKI Rem[address] [address] Potassium [Moles/Vol] 4.0 mmol/L Normal 3.5-5.3 [facility] Comment on above: Performed By: #### 2 713263 #### RIKI Rem[address] [address] Protein [Mass/Vol] 6.5 g/dL Normal 6.4-8.2 [facility] Comment on above: Performed By: #### 2 114541 #### RIKI Rem[address] [address] Sodium [Moles/Vol] 137 mmol/L Normal 136-145 [facility] Comment on above: Performed By: #### 2 430909 #### RIKI Rem[address] [address] Urea nitrogen [Mass/Vol] 8 mg/dL Normal 6-23 [facility] Comment on above: Performed By: #### 2 710899 #### RIKI Rem[address] [address] Urea nitrogen/Creatinin e [Mass ratio] 16.0 ratio Normal 5.4-30.0 [facility] Comment on above: Performed By: #### 2 518522 #### RIKI [address] [place] [address] UA Completeon 04-09-2018 Color (U) Yellow Normal Yellow [facility] Comment on above: Performed By: #### 8 [id number] #### RIKI Urinalysis Automated Subsection [address] [place] [address] Glucose (U) [Mass/Vol] Negative Normal Negative [facility] Comment on above: Performed By: #### 8 [id number] #### RIKI Urinalysis Automated Subsection [address] [place] [address] Ketones Ql (U) Negative Normal Negative [facility] Comment on above: Performed By: #### 8 [id number] #### RIKI Urinalysis Automated Subsection [facility]5 [place] [address] RBC (U) [#/Vol] 3-5 Abnormal 0-3 [facility] Comment on above: Performed By: #### 8 6183589 #### RIKI Urinalysis Automated Subsection [facility] [place] [address] UA Blood 1+ Abnormal Negative [facility] Comment on above: Performed By: #### 8 [id number] #### RIKI Urinalysis Automated Subsection [address] [place] [address] UA Bacteria Trace Abnormal None [facility] Comment on above: Performed By: #### 8 [id number] #### RIKI Urinalysis Automated Subsection [address] [place] [address] UA Clarity Clear Normal Clear [facility] Comment on above: Performed By: #### 8 [id number] #### RIKI Urinalysis Automated Subsection [address] [place] [address] UA Leuk Est Trace Normal Negative [facility] Comment on above: Performed By: #### 8 3590082 #### RIKI Urinalysis Automated Subsection [address] [place] [address] UA Mucous Trace Abnormal Trace [facility] Comment on above: Performed By: #### 8 0090207 #### RIKI Urinalysis Automated Subsection [address] [place] [address] UA Nitrite Negative Normal Negative [facility] Comment on above: Performed By: #### 8 2685168 #### RIKI Urinalysis Automated Subsection [address] [place] [address] UA pH 6.0 Normal 4.6-8.0 [facility] Comment on above: Performed By: #### 8 0749798 #### RIKI Urinalysis Automated Subsection [address] [place] [address] UA Protein Negative Normal Negative [facility] Comment on above: Performed By: #### 8 [id number] #### RIKI Urinalysis Automated Subsection [address] [place] [address] UA Spec Grav 1.006 Normal 1.003-1.030 [facility] Comment on above: Performed By: #### 8 2132698 #### RIKI Urinalysis Automated Subsection [address] [place] [address] UA Squam Epithelial 0-5 Normal 0-5 [facility] Comment on above: Performed By: #### 8 [id number] #### RIKI Urinalysis Automated Subsection [address] [place] [address] UA Urobilinogen Negative Normal [facility] Comment on above: Result Comment: Due to a manufacturing issue, low positive urobilinogen results may be fasely positive. Correlate with urine bilirubin and additional clinical/laboratory findings to assess the risk of hemolytic anemia or liver disease. If clinically indicated, repeat testing with an alternate method is available by contacting the laboratory within 24 hours. Performed By: #### 8 [id number] #### RIKI Urinalysis Automated Subsection [address] [place] [address] UA WBC 0-5 Normal 0-5 [facility] Comment on above: Performed By: #### 8 1366970 #### RIKI Urinalysis Automated Subsection [address] [place] [address] Urobilinogen Qn (U) Negative Normal Negative [facility] Comment on above: Performed By: #### 8 [id number] #### RIKI Urinalysis Automated Subsection [address] [place] [address] eGFRon 04-09-2018 GFR/1.73 sq M predicted among non-blacks MDRD (S/P/Bld) [Vol rate/Area] mL/min/{1.73_m2} Normal [facility] Comment on above: Order Comment: Order added by Discern Expert. Performed By: #### 1 [id number] #### RIKI Rem[employer] [address] [place] [address] CT Abdomen/Pelvis w/o Contra ston 04-05-2018 CT Abdomen/Pelvis w/o Contrast Exam Date/Time: 04/05/2018 07:51 EST Reason for Exam: URINE FREQUENCY MICROSCOPOIC HEMATURIA LOW BACK PAIN;Hematuria Report STUDY: CT Abdomen/Pelvis w/o Contrast; 04/05/2018 7:51 am INDICATION: Hematuria COMPARISON: No comparison. ACCESSION NUMBER(S): [id number] ORDERING CLINICIAN: Stella Orozco TECHNIQUE: CT of the abdomen and pelvis was performed without IV contrast. Coronal and sagittal reformatted images were obtained. Please note the examination is compromised due to lack of IV contrast. FINDINGS: ABDOMEN: LIVER: No focal hepatic lesions. SPLEEN: No focal splenic lesions. PANCREAS: No focal pancreatic lesions. ADRENALS: Within normal limits. GALLBLADDER: No gallbladder wall thickening. BILE DUCTS: No biliary ductal dilation KIDNEYS/URETERS: 5 mm calculus in the distal left ureter resulting in mild hydroureteronephrosis. No right-sided hydronephrosis or urolithiasis. VESSELS: Aorta and IVC are normal in caliber. BOWEL: No bowel obstruction. Normal appendix. PERITONEUM/RETROPERITONEUM/ LYMPH NODES: No lymphadenopathy by CT size criteria. No ascites or free air. PELVIS: REPRODUCTIVE ORGANS: No pelvic masses. BLADDER: Within normal limits. Exam Date/Time: 04/05/2018 07:51 EST Report ABDOMINAL WALL: Within normal limits. BONES: No aggressive osseous lesions. LOWER CHEST: Lung bases are clear. IMPRESSION: 5 mm calculus in the distal left ureter results in mild hydroureteronephrosis. FINAL REPORT Dictated: 04/05/2018 10:15 am Yannick Madera MD Signed (Electronic Signature): 04/05/2018 10:15 am Signed by: Yannick Madera MD Technologist: [facility] Normal [facility] CCP IgG Antibodieson 018 ANTI-CCP 860315 10 units Normal 0-19 [facility] Comment on above: Result Comment: Nega tive <20 Weak positive 20 - 39 Moderate positive 40 - 59 Strong positive >59 Performed By: #### L 101.9900, L100.0100 ####[facility] [address] [place], [place], [address] Complement C3on 10-09-2017 COMP C3 200 mg/dL High 82-167 [facility] Comment on above: Performed By: #### L 101.9900, L100.0100 ####[facility] [address] [place], [place], [address] Complement C4on 10-09-2017 COMP C4 31 mg/dL Normal 14-44 [facility] Comment on above: Performed By: #### L 101.9900, L100.0100 ####[facility] [address] [place], [place], [address] HLA B27on 10-09-2017 HLA B27 Negative Normal . [facility] Comment on above: Result Comment: HLA- B*27 UbnvvnhyQ90 allele interpretation for all loci based on IMGT/HLAdatabase version 3.27This test was developed and its performance characteristicsdetermined by [employer]. It has not been cleared or approvedby the Food and Drug Administration.[facility] Lab CLIA ID Number [id number] test was performed using PCR (Polymerase ChainReaction)/SSOP (Sequence Specific Oligonucleotide Probes)technique. SBT (Sequence Based Typing) and/or SSP(Sequence Specific Primers) may be used as supplementalmethods when necessary. Please contact [facility] CustomerService at if you have any questions. Director of [facility] Dr Braden Rodriguez, PhD Performed By: #### L 101.9900, L100.0100 ####[facility] [address] [place], [place], [id number] Hep B Surface Antibodieson 0 10-09-2017 Hep B Duglas AB Reactive Normal . [facility] Comment on above: Result Comment: Non Reactive: Inconsistent with immunity, less than 10 mIU/mL Reactive: Consistent with immunity, greater than 9.9 mIU/mL Performed By: #### L 101.9900, L100.0100 ####[facility] [address] [place], [place], [address] Hepatitis B Surface Agon HB SURF AG Negative Normal Negative [facility] Comment on above: Result Comment: Perf ormed at: - [facility] [id number] Director: Karlos Crawley PhD, Phone: [phone] at: - [facility] [place], [place] [id number] Director: Braden Rodriguez PhD, Phone: [phone] at: - [facility] [id number] Director: Marcus Vazquez MD, Phone: [phone] Performed By: #### L 101.9900, L100.0100 ####[facility] [address] [place], [address] Hepatitis C Antibodieson HEP C AB 0.1 s/co ratio Normal 0.0-0.9 [facility] Comment on above: Result Comment: Nega tive: < 0.8 Indeterminate: 0.8 - 0.9 Positive: > 0.9 The CDC recommends that a positive HCV antibody result be followed up with a HCV Nucleic Acid Amplification test (693059). Performed By: #### L 101.9900, L100.0100 ####[facility] [address] [place], [address] ANTINUCLEAR ANTIBODIES DIREC Ton 10-05-2017 SEEMA-DIRECT Negative Normal Negative [facility] Comment on above: Result Comment: Perf ormed at: - [facility] [id number] Director: Karlos Crawley PhD, Phone: [phone] Performed By: #### L 3108.7975, L3100.0140, L3100.9100, L3410.0500, L3410.0700, L3410.1110, L3410.4010 ####[facility] (refer to report for specific site)refer to report for address and phone number Anti-Centromere B Abon 10-05 ANTI-CENT B <0.2 Normal 0.0-0.9 [facility] Comment on above: Performed By: #### L 101.9900, L100.0100 ####[facility] [address] [place], [address] Anti-Sarath 10-05-2017 ANTI-KEVIN <0.2 Normal 0.0-0.9 [facility] Comment on above: Performed By: #### L 101.9900, L100.0100 ####[facility] [address] [place], [place], [address] Gjyn-Fknnistsulj-15 ABon ANTISCLER <0.2 Normal 0.0-0.9 [facility] Comment on above: Performed By: #### L 101.9900, L100.0100 ####[facility] [address] [place], [place], [address] Anti-dsDNA Abo 10-05-2017 dsDNA AB <1 Normal 0-9 [facility] Comment on above: Result Comment: Nega tive <5 Equivocal 5 - 9 Positive >9 Performed By: #### L 3100.5475, L3100.5500, L3100.9100, L3410.0500, L3410.0700, L3410.1110, L3410.4010 ####[facility] (refer to report for specific site)refer to report for address and phone number Antiextractable Nu Agon DIRECTOR STYLE Ab 0.2 AI Normal 0.0-0.9 [facility] Comment on above: Performed By: #### L 101.9900, L100.0100 ####[facility] [address] [place], [place], [address] DELGADILLO Ab <0.2 Normal 0.0-0.9 [facility] Comment on above: Performed By: #### L 101.9900, L100.0100 ####[facility] [address] [place], [place], [address] Sjogren's Antibodies A/Bon 0 10-05-2017 Anti-SS-A < 0.2 Normal 0.0-0.9 [facility] Comment on above: Performed By: #### L 3100.5475, L3100.5500, L3100.9100, L3410.0500, L3410.0700, L3410.1110, L3410.4010 ####[facility] (refer to report for specific site)refer to report for address and phone number Anti-SS-B < 0.2 Normal 0.0-0.9 [facility] Comment on above: Performed By: #### L 3100.5475, L3100.5500, L3100.9100, L3410.0500, L3410.0700, L3410.1110, L3410.4010 ####[facility] (refer to report for specific site)refer to report for address and phone number CBC W/Diff, Automatedon 07-3 0-2017 Absolute Neut 3.5 X10 3/uL Normal 2.0-7.7 [facility] Comment on above: Performed By: #### L 101.9900, L100.0100 ####[facility] [address] [place], [address] Basophils/100 WBC Auto (Bld) 0.5 % Normal 0-1 [facility] Comment on above: Performed By: #### L 101.9900, L100.0100 ####[facility] [address] [place], [address] Eosinophils/100 WBC Auto (Bld) 3.2 % Normal 0-5 [facility] Comment on above: Performed By: #### L 101.9900, L100.0100 ####[facility] [address] [place], [address] Erythrocyte distribution width Auto Ratio (RBC) 13.9 % Normal 11.6-14.6 [facility] Comment on above: Performed By: #### L 101.9900, L100.0100 ####[facility] [address] [place], [address] Hematocrit Auto Volume Fraction (Bld) 43.8 % Normal 37-47 [facility] Comment on above: Performed By: #### L 101.9900, L100.0100 ####[facility] [address] [place], [address] Hemoglobin mass conc (Bld) 13.6 g/dL Normal 12.0-15.0 [facility] Comment on above: Performed By: #### L 101.9900, L100.0100 ####[facility] [address] [place], [address] IM GRAN % 0.000 % Normal 0.0-0.9 [facility] Comment on above: Result Comment: IG% - Immature Granulocytes (promyelocytes, myelocytes andmetamyelocytes) > 1% indicates that a LEFT SHIFT is Present. Performed By: #### L 101.9900, L100.0100 ####[facility] [address] [place], [address] Lymphocytes Auto #/vol (Bld) 2.33 X10 3/ul Normal 0.83-4.51 [facility] Comment on above: Performed By: #### L 101.9900, L100.0100 ####[facility] [address] [place], [address] Lymphocytes/100 WBC Auto (Bld) 35.8 % Normal 19-41 [facility] Comment on above: Performed By: #### L 101.9900, L100.0100 ####[facility] [address] [place], [address] MCH Auto Entitic mass (RBC) 27.1 pg Normal 27.0-32.0 [facility] Comment on above: Performed By: #### L 101.9900, L100.0100 ####[facility] [address] [place], [address] MCHC Auto mass conc (RBC) 31.1 g/gl Low 32-36 [facility] Comment on above: Performed By: #### L 101.9900, L100.0100 ####[facility] [address] [place], [address] MCV Auto Entitic volume (RBC) 87.3 fL Normal 81-99 [facility] Comment on above: Performed By: #### L 101.9900, L100.0100 ####[facility] [address] [place], [address] Monocytes/100 WBC Auto (Bld) 7.2 % Normal 0-10 [facility] Comment on above: Performed By: #### L 101.9900, L100.0100 ####[facility] [address] [place], [address] Neutrophils/100 WBC Auto (Bld) 53.3 % Normal 47-70 [facility] Comment on above: Performed By: #### L 101.9900, L100.0100 ####[facility] [address] [place], [address] Platelet mean volume Auto Entitic volume (Bld) 11.6 fL Normal 6.2-12.0 [facility] Comment on above: Performed By: #### L 101.9900, L100.0100 ####[facility] [address] [place], [address] Platelets Auto #/vol (Bld) 231 10*3/uL Normal 150-450 [facility] Comment on above: Performed By: #### L 101.9900, L100.0100 ####[facility] [address] [place], [address] RBC Auto #/vol (Bld) 5.02 M/mm3 Normal 4.2-5.4 [facility] Comment on above: Performed By: #### L 101.9900, L100.0100 ####[facility] [address] [place], [address] RDW SD 44.2 fl High 35.1-43.9 [facility] Comment on above: Performed By: #### L 101.9900, L100.0100 ####[facility] [address] [place], [address] WBC Auto #/vol (Bld) 6.5 10*3/uL Normal 4.4-11.0 [facility] Comment on above: Performed By: #### L 101.9900, L100.0100 ####[facility] [facility] [address] [place], [address] CRPon 10-03-2017 Protein mass conc 13.60 mg/L High 0.0-3.0 [facility] Comment on above: Result Comment: C-Re active Protein (CRP) provides useful information for thediagnosis, therapy and monitoring of inflammatory processesand associated diseases. For the evaluation of Relative Riskfor Cardiovascular Disease, a High Sensitivity CRP (HSCRP)should be ordered. Performed By: #### L 500.4050, L501.6710, L505.7010 ####[facility] [address] [place], [address] Comprehensive Metabolic Prof ilon 10-03-2017 A/G 0.9 RATIO Normal 0.9-2.4 [facility] Comment on above: Performed By: #### L 500.4050, L501.6710, L505.7010 ####[facility] [address] [place], [address] Albumin mass conc 3.6 g/dL Normal 3.2-5.0 [facility] Comment on above: Performed By: #### L 500.4050, L501.6710, L505.7010 ####[facility] [address] [place], [address] ALP enzyme act/vol 86 U/L Normal 45-117 [facility] Comment on above: Performed By: #### L 500.4050, L501.6710, L505.7010 ####[facility] [address] [place], [address] ALT enzyme act/vol 47 U/L Normal 13-56 [facility] Comment on above: Performed By: #### L 500.4050, L501.6710, L505.7010 ####[facility] [address] [place], [address] AST enzyme act/vol 35 U/L Normal 15-37 [facility] Comment on above: Performed By: #### L 500.4050, L501.6710, L505.7010 ####[facility] [address] [place], [address] Bilirubin mass conc 0.40 mg/dL Normal 0.20-1.00 [facility] Comment on above: Performed By: #### L 500.4050, L501.6710, L505.7010 ####[facility] [address] [place], [address] Calcium mass conc 8.9 mg/dL Normal 8.5-10.1 [facility] Comment on above: Performed By: #### L 500.4050, L501.6710, L505.7010 ####[facility] [address] [place], [address] Chloride molar conc 102 mmol/L Normal 98-107 [facility] Comment on above: Performed By: #### L 500.4050, L501.6710, L505.7010 ####[facility] [address] [place], [address] CO2 molar conc 27.0 mmol/L Normal 21.0-32.0 [facility] Comment on above: Performed By: #### L 500.4050, L501.6710, L505.7010 ####[facility] [address] [place] [place], [address] Creatinine mass conc 0.68 mg/dL Normal 0.55-1.02 [facility] Comment on above: Result Comment: The validity of the calculated GFR AND GFRAA in patients over70 years has not been determined. Clinical correlation isessential. Performed By: #### L 500.4050, L501.6710, L505.7010 ####[facility] [address] [place], [address] EST GFR - AA 119 mL/min Normal >60 [facility] Comment on above: Result Comment: Afri can Prydeinig GFR Calc Performed By: #### L 500.4050, L501.6710, L505.7010 ####[facility] [address] [place], [address] GAP 11 Normal 5-15 [facility] Comment on above: Performed By: #### L 500.4050, L501.6710, L505.7010 ####[facility] [address] [place], [address] GFR/1.73 sq M predicted among non-blacks MDRD vol rate/area (S/P/Bld) 98 mL/min/{1.73_m2} Normal >60 [facility] Comment on above: Result Comment: Non- GFR Calc Performed By: #### L 500.4050, L501.6710, L505.7010 ####[facility] [address] [place], [address] Globulin Calculated mass conc (S) 4.2 g/dL Normal 2.2-4.2 [facility] Comment on above: Performed By: #### L 500.4050, L501.6710, L505.7010 ####[facility] [address] [place], [address] Glucose mass conc 153 mg/dL High 74-106 [facility] Comment on above: Result Comment: Fast ing Glucose result greater than or equal to 126 mg/dLsuggests DIABETES MELLITUS per A.D.A. criteria.Please note revised GLUCOSE reference range [id number]/02/2018. Performed By: #### L 500.4050, L501.6710, L505.7010 ####[facility] [address] [place], [address] Potassium molar conc 4.0 mmol/L Normal 3.5-5.1 [facility] Comment on above: Performed By: #### L 500.4050, L501.6710, L505.7010 ####[facility] [address] [place], [address] Protein mass conc 7.8 g/dL Normal 6.4-8.2 [facility] Comment on above: Performed By: #### L 500.4050, L501.6710, L505.7010 ####[facility] [address] [place], [address] Sodium molar conc 140 mmol/L Normal 136-145 [facility] Comment on above: Performed By: #### L 500.4050, L501.6710, L505.7010 ####[facility] [address] [place], [address] Urea nitrogen mass conc 10 mg/dL Normal 7-18 [facility] Comment on above: Performed By: #### L 500.4050, L501.6710, L505.7010 ####[facility] [address] [place], [address] Urea nitrogen mass conc (Bld) 14.6 RATIO Normal 10-20 [facility] Comment on above: Performed By: #### L 500.4050, L501.6710, L505.7010 ####[facility] [address] [place], [address] Erythrocyte Sed Rateon 10-03 SED RATE 21 mm/hr High 0-20 [facility] Comment on above: Performed By: #### L 101.9900, L100.0100 ####[facility] [address] [place], [address] Pelvis 1 or 2 Viewson 2017 Pelvis 1 or 2 Views [facility] [address] [address]Hanogl 1 or 2 ViewsMR#: [id number] Acct: [id number]: ANDIA ADDISON Rep #: [id number]: 1970 F 47 From: Ez Randall MDPCP: Hernan Mckenzie MD Status: REG CLIStudy: Pelvis 1 or 2 Views Date of Exam: 10/03/17Exam# [id number] Ordering Dr: Karen Grossman MDSTUDY: X-RAY - PELVISREASON FOR EXAM: Female, 47 years old. PAIN IN BOTH HIPS. INFLAMMATORYPOLYARTHROPATHY TECHNIQUE: One view of the pelvis was obtained.COMPARISON: None. FINDINGS:There is a non-specific bowel gas pattern. Normal visualized soft tissuestructures.Normal bilateral iliac wings, sacroiliac joints and visualized sacrum.Normal visualized bilateral superior and inferior pubic rami. Normal pubicsymphysis. Normal ischial tuberosities.Normal visualized right femoral head. Normal right acetabulum. Normalright hip joint.Normal visualized left femoral head. Normal left acetabulum. Normal lefthip joint. ORDER #: [id number] RAD/Pelvis 1 or 2 ViewsIMPRESSION:Normal x-ray examination of the pelvis.Electronically Signed:Ez Randall MD at 20:17 EDTTel , Service support , SP: Hernan Mckenzie MD; Karen Grossman MD Prospect Manager:Signed Normal [facility] Protein+Creatinine Ratio,Uri neon 10-03-2017 PROT:CRE RATIO 102 mg/g CRE Normal 0-200 [facility] Comment on above: Performed By: #### L 501.0900 ####[facility] [address] [place], [address] Protein mass conc 13.9 mg/dL High <11.9 [facility] Comment on above: Performed By: #### L 501.0900 ####[facility] [address] [place], [address] UR CREAT 136.00 mg/dL Normal NO RANGE EST. [facility] Comment on above: Performed By: #### L 501.0900 ####[facility] [address] [place], [address] Rheumatoid Factoron 10-04-19 18 RHEUMATOID FAC < 10.0 Normal <15 [facility] Comment on above: Performed By: #### L 500.4050, L501.6710, L505.7010 ####[facility] [address] [place], [address] MRI UPPER EXT JOINT W/O CONT on 03-04-2017 MRI UPPER EXT JOINT W/O CONT Final ReportAccession No: [id number] Performed: Mar 04 2017 11:04AMExamination: LEFT MRI UPPER EXT JOINT W/O CONTClinical history: Shoulder pain and decreased range of motion.MRI left shoulder 03/04/2017 11:04 AMComparison: None.Technique: Multiplanar and multisequence MRI imaging of the left shoulder.Findings: Minimal subchondral cyst formation is noted about the posteriorgreater tuberosity. Otherwise the marrow signal is within normal limits.No evidence for fracture. No joint effusion. The glenohumeral andacromioclavicular joints are maintained.The rotator cuff is intact. The long head of biceps tendon is normal insize, signal and location.No labral abnormality is identified.The visualized musculature is normal in size and signal intensity.Impression:Minima l subchondral cyst formation about the posterior greatertuberosity, can be seen with impaction from repetitive use. No evidencefor fracture or internal derangement is otherwise appreciated.Interpreting Physician: ZULY CAMPA M.D.Trans: : cc: Normal [facility] Vital Signs Date Time Vital Sign Value Performing Clinician Facility 08-30-2024 10:01-0400 Body height 165.1 cm Lucia Simmons MD Work Phone: [facility] 08-30-2024 10:01-0400 Body mass index (BMI) [Ratio] 32.55 kg/m2 Lucia Simmons MD Work Phone: [facility] 08-30-2024 10:01-0400 Body weight 88.72 kg Lucia Simmons MD Work Phone: 9(311)315-847719 [place] [address] 08-30-2024 10:01-0400 Diastolic blood pressure 82 mm[Hg] Lucia Simmons MD Work Phone: [facility] 08-30-2024 10:01-0400 Heart rate 78 /min Lucia Simmons MD Work Phone: [facility] 08-30-2024 10:01-0400 SaO2% (BldA) [Mass fraction] 97 % Lucia Simmons MD Work Phone: [facility] 08-30-2024 10:01-0400 Systolic blood pressure 118 mm[Hg] Lucia Simmons MD Work Phone: [facility] 06-11-2024 14:01-0400 Body height 165.1 cm Jd Bernnan MD Work Phone: [facility] 06-11-2024 14:01-0400 Body mass index (BMI) [Ratio] 32.32 kg/m2 Jd Brennan MD Work Phone: [facility] 06-11-2024 14:01-0400 Body weight 88.09 kg Jd Brennan MD Work Phone: [facility] 06-11-2024 14:01-0400 Diastolic blood pressure 72 mm[Hg] Jd Brennan MD Work Phone: [facility] 06-11-2024 14:01-0400 Heart rate 82 /min Jd Brennan MD Work Phone: [facility] 06-11-2024 14:01-0400 SaO2% (BldA) [Mass fraction] 97 % Jd Brennan MD Work Phone: [facility] 06-11-2024 14:01-0400 Systolic blood pressure 128 mm[Hg] Jd Brennan MD Work Phone: 6(650)324-689919 [place] [address] 03-29-2024 13:36-0500 Body height 165.1 cm Jd Brennan MD Work Phone: 7(098)037-649619 [place] [address] 03-29-2024 13:36-0500 Body mass index (BMI) [Ratio] 33.08 kg/m2 Jd Brennan MD Work Phone: 4(120)359-522919 [place] [address] 03-29-2024 13:36-0500 Body weight 90.17 kg Jd Brennan MD Work Phone: 2(905)053-821819 [place] [address] 03-29-2024 13:36-0500 Diastolic blood pressure 82 mm[Hg] Jd Brennan MD Work Phone: 8(851)201-856519 [place] [address] 03-29-2024 13:36-0500 Heart rate 77 /min Jd Brennan MD Work Phone: [facility] 03-29-2024 13:36-0500 SaO2% (BldA) [Mass fraction] 99 % Jd Brennan MD Work Phone: 9(422)614-446119 [place] [address] 03-29-2024 13:36-0500 Systolic blood pressure 116 mm[Hg] Jd Brennan MD Work Phone: 9(110)629-667419 [place] [address] 03-08-2024 09:01-0500 Body height 165.1 cm Jd Brennan MD Work Phone: 2(797)982-822419 [place] [address] 03-08-2024 09:01-0500 Body mass index (BMI) [Ratio] 33.41 kg/m2 Jd Brennan MD Work Phone: 5(460)921-827819 [place] [address] 03-08-2024 09:01-0500 Body weight 91.08 kg Jd Brennan MD Work Phone: [facility] 03-08-2024 09:01-0500 Diastolic blood pressure 84 mm[Hg] Jd Brennan MD Work Phone: [facility] 03-08-2024 09:01-0500 Heart rate 71 /min Jd Brennan MD Work Phone: [facility] 03-08-2024 09:01-0500 SaO2% (BldA) [Mass fraction] 98 % Jd Brennan MD Work Phone: [facility] 03-08-2024 09:01-0500 Systolic blood pressure 128 mm[Hg] Jd Brennan MD Work Phone: [facility] 08-29-2023 14:37-0400 Body height 165.1 cm Jd Brennan MD Work Phone: [facility] 08-29-2023 14:37-0400 Body mass index (BMI) [Ratio] 33.95 kg/m2 Jd Brennan MD Work Phone: [facility] 08-29-2023 14:37-0400 Body weight 92.53 kg Jd Brennan MD Work Phone: [facility] 08-29-2023 14:37-0400 Diastolic blood pressure 84 mm[Hg] Jd Brennan MD Work Phone: [facility] 08-29-2023 14:37-0400 Heart rate 86 /min Jd Brennan MD Work Phone: [facility] 08-29-2023 14:37-0400 SaO2% (BldA) [Mass fraction] 96 % Jd Brennan MD Work Phone: [facility] 08-29-2023 14:37-0400 Systolic blood pressure 122 mm[Hg] Jd Brennan MD Work Phone: [facility] 08-29-2023 10:070400 Body height 165.1 cm [facility] 08-29-2023 10:070400 Body mass index (BMI) [Ratio] 33.45 kg/m2 [facility] 08-29-2023 10:0400 Body weight 91.17 kg [facility] 12-03-2022 10:29040 Body height 167.6 cm Jd Brennan MD Work Phone: [facility] 12-03-2022 10:040 Body mass index (BMI) [Ratio] 34.04 kg/m2 dJ Brennan MD Work Phone: [facility] 12-03-2022 10:040 Body weight 95.66 kg Jd Brennan MD Work Phone: [facility] 12-03-2022 10:29040 Diastolic blood pressure 68 mm[Hg] Jd Brennan MD Work Phone: [facility] 12-03-2022 10:29040 Heart rate 74 /min Jd Brennan MD Work Phone: [facility] 12-03-2022 10:29040 SaO2% (BldA) [Mass fraction] 96 % Jd Brennan MD Work Phone: [facility] 12-03-2022 10:29040 Systolic blood pressure 126 mm[Hg] Jd Brennan MD Work Phone: [facility] 10-14-2022 15:19-0400 Body height 165.1 cm Jd Brennan Work Phone: FC-Qcgecpscdu[address] [place] Work Phone: 10-14-2022 15:19-0400 Body mass index (BMI) [Ratio] 34.78 kg/m2 Jd Brennan Work Phone: XN-Eluyflavfg-[address] Work Phone: 10-14-2022 15:19-0400 Body surface area Derived from formula 2.02 m2 Jd T Furness Work Phone: EA-[address]rsd[address] Work Phone: 10-14-2022 15:19-0400 Body weight 94.8 kg Jd T Furness Work Phone: KS-Rfumvaucvl-[address]tdkp [address] Work Phone: 10-14-2022 15:19-0400 Diastolic blood pressure 82 mm[Hg] Jd T Furness Work Phone: NP-Rqrtbvnqod-[address] Work Phone: 10-14-2022 15:19-0400 Heart rate 82 /min Jd T Furness Work Phone: RO-Zvoivdjknc-[address] Work Phone: 10-14-2022 15:19-0400 SaO2% (BldA) [Mass fraction] 97 % Jd T Furness Work Phone: JA-[address]jxjrfw[address] Work Phone: 10-14-2022 15:19-0400 Systolic blood pressure 120 mm[Hg] Jd T Furness Work Phone: TF-Mqdjkrxwhr-[address] Work Phone: 09-16-2022 14:49-0400 Body height 167.6 cm Jd Brennan MD Work Phone: [facility] 09-16-2022 14:49-0400 Body mass index (BMI) [Ratio] 33.38 kg/m2 Jd Brennan MD Work Phone: [facility] 09-16-2022 14:49-0400 Body weight 93.8 kg Jd Brennan MD Work Phone: [facility] 09-16-2022 14:49-0400 Diastolic blood pressure 82 mm[Hg] Jd Brennan MD Work Phone: [facility] 09-16-2022 14:49-0400 Heart rate 81 /min Jd Brennan MD Work Phone: [facility] 09-16-2022 14:49-0400 SaO2% (BldA) [Mass fraction] 97 % Jd Brennan MD Work Phone: [facility] 09-16-2022 14:49-0400 Systolic blood pressure 122 mm[Hg] Jd Brennan MD Work Phone: [facility] 06-21-2022 15:47-0400 Body height 167.6 cm Jd Brennan MD Work Phone: [facility] 06-21-2022 15:47-0400 Body mass index (BMI) [Ratio] 33.54 kg/m2 Jd Brennan MD Work Phone: [facility] 06-21-2022 15:47-0400 Body weight 94.26 kg Jd Brennan MD Work Phone: [facility] 06-21-2022 15:47-0400 Diastolic blood pressure 62 mm[Hg] Jd Brennan MD Work Phone: [facility] 06-21-2022 15:47-0400 Heart rate 80 /min Jd Brennan MD Work Phone: [facility] 06-21-2022 15:47-0400 SaO2% (BldA) [Mass fraction] 98 % Jd Brennan MD Work Phone: [facility] 06-21-2022 15:47-0400 Systolic blood pressure 118 mm[Hg] Jd Brennan MD Work Phone: [facility] 02-01-2022 18:04-0500 Body height 165 cm Jd Brennan Other Phone: [facility] 02-01-2022 18:04-0500 Body temperature 97.88 [degF] Jd Brennan Other Phone: [facility] 02-01-2022 18:04-0500 Diastolic blood pressure 92 mm[Hg] Jd Brennan Other Phone: [facility] 02-01-2022 18:04-0500 Heart rate 101 /min Jd Brennan Other Phone: [facility] 02-01-2022 18:04-0500 Respiratory rate 16 /min Jdfina Brennan Other Phone: [facility] 02-01-2022 18:04-0500 SaO2% (BldA) [Mass fraction] 95 % Jdfina Brennan Other Phone: [facility] 02-01-2022 18:04-0500 Systolic blood pressure 130 mm[Hg] Jd Brennan Other Phone: [facility] 11-18-2021 08:05-0400 Body height 167.64 cm Jd Brennan Work Phone: [email or web address] [facility] Work Phone: 11-18-2021 08:05-0400 Body mass index (BMI) [Ratio] 32.83 kg/m2 Jd Brennan Work Phone: [email or web address] [facility] Work Phone: 11-18-2021 08:05-0400 Body surface area Derived from formula 2.01 m2 Jd Brennan Work Phone: [facility] [facility] Work Phone: 11-18-2021 08:05-0400 Body weight 92.25 kg Jd Brennan Work Phone: [employer] [facility] Work Phone: 11-18-2021 08:05-0400 Diastolic blood pressure 78 mm[Hg] Jd Brennan Work Phone: [facility] [facility] Work Phone: 11-18-2021 08:05-0400 Heart rate 73 /min Jd Brennan Work Phone: [facility] Work Phone: 11-18-2021 08:05-0400 SaO2% (BldA) [Mass fraction] 98 % Jd Brennan Work Phone: [facility] Work Phone: 11-18-2021 08:05-0400 Systolic blood pressure 118 mm[Hg] Jd Brennan Work Phone: [facility] Work Phone: 10-05-2021 08:44-0400 Body height 167.64 cm Jd Brennan Work Phone: [facility] Work Phone: 10-05-2021 08:44-0400 Body mass index (BMI) [Ratio] 33.31 kg/m2 Jd Brennan Work Phone: [facility] Work Phone: 10-05-2021 08:44-0400 Body surface area Derived from formula 2.03 m2 Jd Brennan Work Phone: [facility] Work Phone: 10-05-2021 08:44-0400 Body weight 93.61 kg Jd Brennan Work Phone: [facility] Work Phone: 10-05-2021 08:44-0400 Diastolic blood pressure 78 mm[Hg] Jd Brennan Work Phone: [facility] Work Phone: 10-05-2021 08:44-0400 Heart rate 79 /min Jd Brennan Work Phone: [facility] Work Phone: 10-05-2021 08:44-0400 SaO2% (BldA) [Mass fraction] 98 % Jd Brennan Work Phone: [facility] Work Phone: 10-05-2021 08:44-0400 Systolic blood pressure 120 mm[Hg] Jd Brennan Work Phone: [facility] Work Phone: 09-28-2021 15:58-0400 Body height 167.64 cm Jd Brennan Work Phone: [facility] [facility] Work Phone: 09-28-2021 15:58-0400 Body mass index (BMI) [Ratio] 33.41 kg/m2 Jd Brennan Work Phone: [facility] [employer] [facility] Work Phone: 09-28-2021 15:58-0400 Body surface area Derived from formula 2.03 m2 Jd Brennan Work Phone: [facility] [employer] [facility] Work Phone: 09-28-2021 15:58-0400 Body weight 93.9 kg Jd Brennan Work Phone: [facility] [employer] [facility] Work Phone: 09-28-2021 15:58-0400 Diastolic blood pressure 78 mm[Hg] Jd Brennan Work Phone: [facility] [employer] [facility] Work Phone: 09-28-2021 15:58-0400 Heart rate 85 /min Jd Brennan Work Phone: [facility] [employer] [facility] Work Phone: 09-28-2021 15:58-0400 SaO2% (BldA) [Mass fraction] 97 % Jd Brennan Work Phone: [facility] [facility] Work Phone: 09-28-2021 15:58-0400 Systolic blood pressure 122 mm[Hg] Jd Brennan Work Phone: [facility] Work Phone: 06-10-2021 10:42-0400 Body height 167.64 cm Jd Brennan Work Phone: [facility] Work Phone: 06-10-2021 10:42-0400 Body mass index (BMI) [Ratio] 32.94 kg/m2 Jd Brennan Work Phone: [facility] Work Phone: 06-10-2021 10:42-0400 Body surface area Derived from formula 2.02 m2 Jd Brennan Work Phone: [facility] Work Phone: 06-10-2021 10:42-0400 Body weight 92.56 kg Jd Brennan Work Phone: [facility] Work Phone: 06-10-2021 10:42-0400 Diastolic blood pressure 72 mm[Hg] Jd Brennan Work Phone: [facility] Work Phone: 06-10-2021 10:42-0400 Heart rate 79 /min Jd Brennan Work Phone: [facility] Work Phone: 06-10-2021 10:42-0400 SaO2% (BldA) [Mass fraction] 100 % Jd Brennan Work Phone: [facility] Work Phone: 06-10-2021 10:42-0400 Systolic blood pressure 118 mm[Hg] Jd Brennan Work Phone: [facility] Work Phone: 05-03-2021 14:56-0500 Body height 167.6 cm Kevon Lamport PA-C Work Phone: [facility] 05-03-2021 14:56-0500 Body mass index (BMI) [Ratio] 32.12 kg/m2 Kevon Lamport PA-C Work Phone: [facility] 05-03-2021 14:56-0500 Body temperature 97.9 [degF] Kevon Lamport PA-C Work Phone: [facility] 05-03-2021 14:56-0500 Body weight 90.27 kg Kevon Lamport PA-C Work Phone: [facility] 05-03-2021 14:56-0500 Diastolic blood pressure 82 mm[Hg] Kevon Lamport PA-C Work Phone: [facility] 05-03-2021 14:56-0500 Heart rate 78 /min Kevon Lamport PA-C Work Phone: [facility] 05-03-2021 14:56-0500 Respiratory rate 16 /min Kevon Lamport PA-C Work Phone: [facility] 05-03-2021 14:56-0500 SaO2% (BldA) [Mass fraction] 96 % Kevon Lamport PA-C Work Phone: [facility] 05-03-2021 14:56-0500 Systolic blood pressure 116 mm[Hg] Kevon Lamport PA-C Work Phone: [facility] 04-30-2021 16:13-0500 Body height 167.64 cm Jd Brennan Work Phone: [facility] [employer] [facility] Work Phone: 04-30-2021 16:13-0500 Body mass index (BMI) [Ratio] 33.57 kg/m2 Jd Brennan Work Phone: [facility] [employer] [facility] Work Phone: 04-30-2021 16:13-0500 Body surface area Derived from formula 2.03 m2 Jd Vásquezess Work Phone: -[facility] Work Phone: 04-30-2021 16:13-0500 Body weight 94.35 kg Jd Vásquezess Work Phone: [facility] Work Phone: 03-02-2021 15:11-0500 Body height 167.64 cm Jd Vásquezess Work Phone: [facility] 300 Work Phone: 03-02-2021 15:11-0500 Body mass index (BMI) [Ratio] 33.57 kg/m2 Jd T Furness Work Phone: [facility] 300 Work Phone: 03-02-2021 15:11-0500 Body surface area Derived from formula 2.03 m2 Jd Brennan Work Phone: [facility] 300 Work Phone: 03-02-2021 15:11-0500 Body weight 94.35 kg Jd Brennan Work Phone: [facility] 300 Work Phone: 02-17-2021 15:45-0500 Body height 167.64 cm Jd Brennan Work Phone: [facility] Work Phone: 02-17-2021 15:45-0500 Body mass index (BMI) [Ratio] 33.12 kg/m2 Jd T Furness Work Phone: [facility] Work Phone: 02-17-2021 15:45-0500 Body surface area Derived from formula 2.02 m2 Jd T Furness Work Phone: [facility] Work Phone: 02-17-2021 15:45-0500 Body temperature 97.3 [degF] Jd Brennan Work Phone: [facility] [employer] [facility] Work Phone: 02-17-2021 15:45-0500 Body weight 93.07 kg Jd Brennan Work Phone: [facility] [employer] [facility] Work Phone: 02-17-2021 15:45-0500 Diastolic blood pressure 78 mm[Hg] Jd Brennan Work Phone: [employer] [facility] Work Phone: 02-17-2021 15:45-0500 Heart rate 75 /min Jd Brennan Work Phone: [employer] [facility] Work Phone: 02-17-2021 15:45-0500 SaO2% (BldA) [Mass fraction] 99 % Jd Brennan Work Phone: [employer] [facility] Work Phone: 02-17-2021 15:45-0500 Systolic blood pressure 112 mm[Hg] Jd Brennan Work Phone: [employer] [facility] Work Phone: 01-15-2021 15:45-0500 Body height 167.64 cm Jd Brennan Work Phone: [facility] 300 Work Phone: 01-15-2021 15:45-0500 Body mass index (BMI) [Ratio] 33.92 kg/m2 Jd Brennan Work Phone: [facility] 300 Work Phone: 01-15-2021 15:45-0500 Body surface area Derived from formula 2.04 m2 Jd Brennan Work Phone: [facility] 300 Work Phone: 01-15-2021 15:45-0500 Body temperature 97.7 [degF] Jd Brennan Work Phone: [facility] 300 Work Phone: 01-15-2021 15:45-0500 Body weight 95.31 kg Jd Brennan Work Phone: [facility] 300 Work Phone: 01-15-2021 15:45-0500 Diastolic blood pressure 84 mm[Hg] Jd Brennan Work Phone: [facility] 300 Work Phone: 01-15-2021 15:45-0500 Heart rate 86 /min Jd Brennan Work Phone: [facility] 300 Work Phone: 01-15-2021 15:45-0500 SaO2% (BldA) [Mass fraction] 98 % Jd Brennan Work Phone: [facility] 300 Work Phone: 01-15-2021 15:45-0500 Systolic blood pressure 118 mm[Hg] Jd Brennan Work Phone: [facility] 300 Work Phone: 12-25-2020 09:54-0400 Body height 167.64 cm Jd Brennan Work Phone: [facility] 300 Work Phone: 12-25-2020 09:54-0400 Body mass index (BMI) [Ratio] 33.49 kg/m2 Jd Brennan Work Phone: [facility] 300 Work Phone: 12-25-2020 09:54-0400 Body surface area Derived from formula 2.03 m2 Jd Brennan Work Phone: [facility] 300 Work Phone: 12-25-2020 09:54-0400 Body temperature 97.1 [degF] Jd Brennan Work Phone: [facility] 300 Work Phone: 12-25-2020 09:54-0400 Body weight 94.12 kg Jd Brennan Work Phone: [facility] 300 Work Phone: 12-25-2020 09:54-0400 Diastolic blood pressure 72 mm[Hg] Jd Brennan Work Phone: [facility] 300 Work Phone: 12-25-2020 09:54-0400 Systolic blood pressure 126 mm[Hg] Jd Brennan Work Phone: [facility] 300 Work Phone: 12-11-2020 10:25-0400 Body height 167.64 cm Jd Brennan Work Phone: [facility] 300 Work Phone: 12-11-2020 10:25-0400 Body mass index (BMI) [Ratio] 32.28 kg/m2 Jd Brennan Work Phone: [facility] 300 Work Phone: 12-11-2020 10:25-0400 Body surface area Derived from formula 2 m2 Jd Brennan Work Phone: [facility] 300 Work Phone: 12-11-2020 10:25-0400 Body temperature 97.5 [degF] Jd Brennan Work Phone: [facility] 300 Work Phone: 12-11-2020 10:25-0400 Body weight 90.72 kg Jd T Furness Work Phone: [facility] 300 Work Phone: 12-11-2020 10:25-0400 Diastolic blood pressure 74 mm[Hg] Jd T Furness Work Phone: [facility] 300 Work Phone: 12-11-2020 10:25-0400 Heart rate 79 /min Jd T Furness Work Phone: [facility] 300 Work Phone: 12-11-2020 10:25-0400 Systolic blood pressure 130 mm[Hg] Jd T Furness Work Phone: [facility] 300 Work Phone: 11-06-2020 10:39-0400 Body height 167.64 cm Jd T Furness Work Phone: [facility] 300 Work Phone: 11-06-2020 10:39-0400 Body temperature 97.3 [degF] Jd T Furness Work Phone: [facility] 300 Work Phone: 11-06-2020 10:39-0400 Diastolic blood pressure 88 mm[Hg] Jd T Furness Work Phone: [facility] 300 Work Phone: 11-06-2020 10:39-0400 Systolic blood pressure 128 mm[Hg] Jd T Furness Work Phone: [facility] 300 Work Phone: 10-31-2020 16:15-0400 Body height 167.64 cm Jd T Furness Work Phone: [facility] 300 Work Phone: 10-31-2020 16:15-0400 Body mass index (BMI) [Ratio] 32.93 kg/m2 Jd Brennan Work Phone: [facility] 300 Work Phone: 10-31-2020 16:15-0400 Body surface area Derived from formula 2.02 m2 Jd Brennan Work Phone: [facility] 300 Work Phone: 10-31-2020 16:15-0400 Body weight 92.53 kg Jd Brennan Work Phone: [facility] 300 Work Phone: 10-29-2020 09:07-0400 Body height 167.64 cm Jd Brennan Work Phone: [facility] 300 Work Phone: 10-29-2020 09:07-0400 Body temperature 97.7 [degF] Jd Brennan Work Phone: [facility] 300 Work Phone: 10-29-2020 09:07-0400 Diastolic blood pressure 77 mm[Hg] Jd Brennan Work Phone: [facility] 300 Work Phone: 10-29-2020 09:07-0400 Heart rate 101 /min Jd Vásquezess Work Phone: [facility] 300 Work Phone: 10-29-2020 09:07-0400 Systolic blood pressure 115 mm[Hg] Jd Vásquezess Work Phone: [facility] 300 Work Phone: 10-28-2020 07:45-0400 Diastolic blood pressure 68 mm[Hg] Jd Furness Other Phone: [facility] 10-28-2020 07:45-0400 Heart rate 70 /min Jd Furness Other Phone: [facility] 10-28-2020 07:45-0400 Respiratory rate 18 /min Jd Furness Other Phone: [facility] 10-28-2020 07:45-0400 SaO2% (BldA) [Mass fraction] 96 % Jd Furness Other Phone: [facility] 10-28-2020 07:45-0400 Systolic blood pressure 121 mm[Hg] Jd Furness Other Phone: [facility] 10-28-2020 04:53-0400 Body height 165.1 cm Jd Furness Other Phone: [facility] 10-28-2020 04:53-0400 Body temperature 95.9 [degF] Jd Furness Other Phone: [facility] 10-28-2020 04:53-0400 Body weight 91.8 kg Jd Furness Other Phone: [facility] 09-02-2020 09:36-0400 Body height 167.64 cm Jd T Furness Work Phone: [employer] Work Phone: 09-02-2020 09:36-0400 Body mass index (BMI) [Ratio] 33.06 kg/m2 Jd T Furness Work Phone: [facility] Work Phone: 09-02-2020 09:36-0400 Body surface area Derived from formula 2.02 m2 Jd T Furness Work Phone: [employer] Work Phone: 09-02-2020 09:36-0400 Body temperature 97.5 [degF] Jd Brennan Work Phone: [place] [address] [place] Work Phone: 09-02-2020 09:36-0400 Body weight 92.9 kg Jd Brennan Work Phone: [place] [place] [address] [place] Work Phone: 09-02-2020 09:36-0400 Diastolic blood pressure 82 mm[Hg] Jd Brennan Work Phone: [place] [address] [place] Work Phone: 09-02-2020 09:36-0400 Systolic blood pressure 120 mm[Hg] Jd Brennan Work Phone: [place] [address] [place] Work Phone: 03-19-2019 12:49-0500 BMI (Body Mass Index) 37.82 kg/m2 Jd Brennan [employer] [facility] Work Phone: 03-19-2019 12:49-0500 Body weight 106.28 kg Jd Brennan [employer] [facility] Work Phone: 03-19-2019 12:49-0500 BP Diastolic 64 mm[Hg] Jd Brennan [employer] [facility] Work Phone: Comment on above: Location: [facility]; 03-19-2019 12:49-0500 BP Systolic 120 mm[Hg] Jd Brennan [employer] [facility] Work Phone: Comment on above: Location: E; 03-19-2019 12:49-0500 BSA (Body Surface Area) 2.14 m2 Jd Brennan [employer] [facility] Work Phone: 03-19-2019 12:49-0500 Height 167.64 cm Jd Brennan [employer] [facility] Work Phone: 03-19-2019 12:49-0500 Pulse (Heart Rate) 80 /min Jd Brennan -[facility] Work Phone: 03-19-2019 12:49-0500 Pulse Oximetry 95 % Jd Brennan -[facility] Work Phone: 02-13-2019 10:25-0500 BMI (Body Mass Index) 38.26 kg/m2 Jd Brennan -[facility] Work Phone: 02-13-2019 10:25-0500 Body weight 107.51 kg Jd Brennan [facility] Work Phone: 02-13-2019 10:25-0500 BP Diastolic 80 mm[Hg] Jd Brennan -[facility] Work Phone: Comment on above: Location: [facility]; 02-13-2019 10:25-0500 BP Systolic 124 mm[Hg] Jd Brennan -[facility] Work Phone: Comment on above: Location: [facility]; 02-13-2019 10:25-0500 BSA (Body Surface Area) 2.15 m2 Jd Brennan -[facility] Work Phone: 02-13-2019 10:25-0500 Height 167.64 cm Jd Brennan -[facility] Work Phone: 02-13-2019 10:25-0500 Pulse (Heart Rate) 74 /min Jd Brennan -[facility] Work Phone: 01-17-2019 10:28-0500 BMI (Body Mass Index) 38.74 kg/m2 Hernan Mckenzie [facility] Work Phone: 01-17-2019 10:28-0500 Body Temperature 97.8 [degF] Hernan Mckenzie [facility] Work Phone: 01-17-2019 10:28-0500 Body weight 108.88 kg Hernan Mckenzie -[facility] Work Phone: 01-17-2019 10:28-0500 BP Diastolic 84 mm[Hg] Hernan Mckenzie [facility] Work Phone: Comment on above: Location: [facility]; 01-17-2019 10:28-0500 BP Systolic 136 mm[Hg] Hernan Mckenzie [facility] Work Phone: Comment on above: Location: [facility]; 01-17-2019 10:28-0500 BSA (Body Surface Area) 2.16 m2 Hernan Mckenzie [facility] Work Phone: 01-17-2019 10:28-0500 Height 167.64 cm Hernan Mckenzie -[facility] [employer] [facility] Work Phone: 01-17-2019 10:28-0500 Pulse (Heart Rate) 76 /min Hernan Mckenzie -[facility] [employer] [facility] Work Phone: 04-14-2018 22:06-0500 Body weight 39.0 mg [facility] Comment on above: Performed By: #### [id number] #### [place] [address] Encounters Encounter Date Encounter Type Care Provider Facility Start: 09-06-2024 End: 09-06-2024 Subsequent hospital visit by physician Timmy Enrique [address] [place] [address] Comment on above: Breast lump; Right axillary swelling Start: 09-06-2024 End: 09-06-2024 ambulatory LUC[facility] Start: 08-30-2024 End: 08-30-2024 Office outpatient visit 25 minutes Lucia Simmons MD Work Phone: [facility] Comment on above: Swollen lymph nodes (Primary Dx); Screening mammogram for breast cancer; Chronic upper back pain; Neck pain; Acute pain of right shoulder Start: 08-30-2024 End: 08-31-2024 ambulatory [facility] Start: 06-11-2024 End: 06-11-2024 Office outpatient visit 25 minutes Jd Brennan MD Work Phone: [facility] Comment on above: Type 2 diabetes guicho itus without complication, without long- term current use of insulin (Primary Dx); Non-seasonal allergic rhinitis, unspecified trigger; Primary hypertension; Low vitamin B12 level; Mixed hyperlipidemia Start: 06-11-2024 End: 06-11-2024 ambulatory [facility] Start: 03-29-2024 End: 03-29-2024 Office outpatient visit 15 minutes Jd Brennan MD Work Phone: [facility] Comment on above: Mild intermittent as thma without complication (HHS-HCC) (Primary Dx) Start: 03-29-2024 End: 03-29-2024 ambulatory [facility] Start: 03-08-2024 End: 03-08-2024 Office outpatient visit 25 minutes Jd Brennan MD Work Phone: [facility] Comment on above: Type 2 diabetes guicho itus without complication, without long- term current use of insulin (Multi); Fibromyalgia; Primary hypertension; Gastroesophageal reflux disease without esophagitis Start: 03-08-2024 End: 03-08-2024 ambulatory [facility] Start: 08-29-2023 End: 08-29-2023 Office outpatient visit 25 minutes Jd Brennan MD Work Phone: [facility] Comment on above: Type 2 diabetes guicho itus without complication, without long- term current use of insulin (Multi) (Primary Dx); Mild intermittent asthma without complication (HHS-HCC); Primary hypertension Start: 08-29-2023 End: 08-29-2023 Subsequent hospital visit by physician Timmy Tillman [facility] Comment on above: Screening mammogram for breast cancer Start: 12-03-2022 End: 12-03-2022 Office outpatient visit 15 minutes Jd Brennan MD Work Phone: [facility] Comment on above: Non-seasonal allergi c rhinitis, unspecified trigger (Primary Dx) Start: 10-29-2022 Chart Update Jd flood Work Phone: [facility]-[address] Work Phone: Start: 10-28-[address] Jd Soto Facility:[id number] Start: 10-14-[address] Jd Soto Facility:[id number] Start: 10-14-2022 Office outpatient vi sit 25 minutes Jd Brennan Work Phone: [facility]jcgpnibcj-[address] Work Phone: Start: 10-08-2022 ECHO, Provider: RIKI PERALTA ECHO 1,SMCECHO1, Status: Pen, Time: 9:00 AM Jd T Furness Work Phone: IC-Qsnvirpgfi-Qurqanf [address] [place] Work Phone: Start: 10-08-2022 STRESS DIMPLE, Provider : WALLY PERALTA STRESS 1,SMCSTRESS1, Status: Pen, Time: 8:00 AM Jd T Furness Work Phone: MD-Ozgihsmpho-Hhjvfzd [address] [place] Work Phone: Start: 10-08-[address] Jd Soto Facility:[id number] Start: 10-06-2022 Chart Update Jd flood Work Phone: [facility] Work Phone: Start: 09-17-2022 Office outpatient ne w 45 minutes Jd Brennan Work Phone: [facility] Work Phone: Start: 09-17-[address] Jd Soto Facility:[id number] Start: 09-16-2022 End: 09-16-2022 Office outpatient visit 25 minutes Jd Brennan MD Work Phone: [facility] Comment on above: Type 2 diabetes guicho itus without complication, without long- term current use of insulin ([facility]) (Primary Dx); Primary hypertension Start: 09-01-2022 End: 09-01-2022 Emergency department patient visit DO RIGO ESCOTO Facility:[id number] Start: 06-21-2022 End: 06-21-2022 Office outpatient visit 25 minutes Jd Brennan MD Work Phone: [facility] Comment on above: Type 2 diabetes guicho itus without complication, without long- term current use of insulin ([facility]) (Primary Dx); Primary hypertension; Encounter for screening for malignant neoplasm of colon; Fibromyalgia Start: 03-22-[address] Jd Soto Facility:[id number] Start: 03-05-2022 End: 03-06-2022 Emergency department patient visit Kenia Morillo [facility] Emergency 13 Start: 03-05-2022 End: 03-05-2022 Emergency department patient visit Prudence Kasper [facility] Start: 02-01-2022 End: 02-01-2022 Emergency department patient visit Fernando Bynum [facility] Start: 12-11-2021 AUDIT Jd flood Work Phone: [facility] Work Phone: Start: 12-11-[address] Jd Soto Facility:[id number] Start: 11-18-2021 EPV, Provider: Jd Brennan, Status: Pen, Time: 8:00 AM Jd Brennan Work Phone: [facility] Work Phone: Start: 11-18-[address] Jd Soto Facility:[id number] Start: 11-16-2021 Chart Update Jd flood Work Phone: [facility] Work Phone: Start: 10-05-2021 Office outpatient vi sit 25 minutes Jd Brennan Work Phone: -[facility] Work Phone: Start: 09-28-2021 Office outpatient vi sit 25 minutes Jd Brennan Work Phone: [facility] Work Phone: Start: 06-10-2021 Office outpatient vi sit 15 minutes Jd Brennan Work Phone: [facility] [employer] [facility] Work Phone: Start: 05-14-2021 AUDIT Jd flood Work Phone: [employer] [facility] Work Phone: Start: 05-07-2021 Patient encounter procedure Jd Brennan Work Phone: [employer] [facility] Work Phone: Start: 05-03-2021 End: 05-03-2021 ambulatory JD BRENNAN [facility] Start: 05-03-2021 End: 05-03-2021 Office outpatient new 30 minutes Kevon Hoang PA-C Work Phone: [facility] Comment on above: Bacterial URI (Prima ry Dx) Start: 04-30-2021 Phys/qhp telephone evaluation 5-10 min Jd Brennan Work Phone: [employer] [facility] Work Phone: Start: 03-02-2021 Office outpatient vi sit 25 minutes Jd Brennan Work Phone: -[facility] 300 Work Phone: Start: 02-20-2021 Patient encounter procedure Jd Brennan Work Phone: [employer] [facility] Work Phone: Start: 02-17-2021 Office outpatient vi sit 25 minutes Jd Brennan Work Phone: [employer] [facility] Work Phone: Start: 01-18-2021 Chart Update Jd flood Work Phone: [facility] 300 Work Phone: Start: 01-16-2021 ANTONTUNWalt, Provider: [facility],SMCVASLAB2, Status: Pen, Time: 3:00 PM Jd T Furness Work Phone: [facility] 300 Work Phone: Start: 01-15-2021 Office outpatient vi sit 15 minutes Jd Hoffmann Furness Work Phone: [facility] 300 Work Phone: Start: 12-29-2020 Chart Update Jd T Furn ess Work Phone: [facility] 300 Work Phone: Start: 12-25-2020 Office outpatient vi sit 15 minutes Jd Hoffmann Furness Work Phone: [facility] 300 Work Phone: Start: 12-25-2020 Patient encounter procedure Jd T Furness Work Phone: [facility] 300 Work Phone: Start: 12-12-2020 Chart Update Jd Hoffmann Furn ess Work Phone: [facility] 300 Work Phone: Start: 12-11-2020 FUV, Provider: Soy Santacruz, Status: Pen, Time: 10:30 AM Jd Hoffmann Furnremigio Work Phone: [facility] 300 Work Phone: Start: 12-11-2020 Office outpatient vi sit 15 minutes Jd Hoffmann Furness Work Phone: [facility] 300 Work Phone: Start: 12-10-2020 AUDIT Jd Shanda Furn ess Work Phone: [facility] 300 Work Phone: Start: 11-07-2020 Chart Update Jd Shanda Furn ess Work Phone: [facility] 300 Work Phone: Start: 11-06-2020 Office outpatient vi sit 15 minutes Jd Brennan Work Phone: [facility] 300 Work Phone: Start: 10-29-2020 Office outpatient ne w 30 minutes Jd Brennan Work Phone: [facility] 300 Work Phone: Start: 10-29-2020 Patient encounter procedure Jd Brennan Work Phone: [facility] 300 Work Phone: Start: 10-28-2020 End: 10-28-2020 Emergency department patient visit Rigo Escoto [facility] Emergency 12 Start: 10-14-2020 Chart Update Jd flood Work Phone: [employer] Work Phone: Start: 09-16-2020 Chart Update Jd flood Work Phone: [employer] Work Phone: Start: 09-02-2020 Initial preventive medicine new patient 40-64yrs Jd Brennan Work Phone: [employer] Work Phone: Start: 03-19-2019 Patient encounter procedure Jd Brennan -[facility] [employer] [facility] Work Phone: Start: 02-13-2019 Patient encounter procedure Jd Brennan -[facility] [employer] [facility] Work Phone: Start: 01-17-2019 Patient encounter procedure Jd Brennan -[facility] [employer] [facility] Work Phone: Start: 10-03-2017 Patient encounter Karen Grossman Fac ility:[facility] Start: 03-04-2017 Ambulatory Nidhi Davis Faci [place]ity:[place] Start: 03-04-2017 End: 03-04-2017 Ambulatory Nidhi Davis Work Phone: [facility] Procedures Date Procedure Procedure Detail Performing Clinician Start: 08-29-2023 Mammography Jd kennedy MD Work Phone: Start: 10-08-2022 Echocardiography Lance Brennan Work Phone: Start: 03-05-2022 End: 03-05-2022 EKG impression Kenia Morillo Start: 12-11-2021 Mammography Jd kennedy MD Work Phone: Start: 10-28-2020 End: 10-28-2020 EKG impression Rigo Escoto Start: 09-02-2020 Microscopic observat ion [Identifier] in Cervix by Cyto stain Jd Brennan MD Work Phone: Start: 01-17-2019 Blood count complete auto&auto difrntl wbc Hernan Mckenzie Start: 01-17-2019 Comprehensive metabo lic 2000 panel Hernan Mckenzie Start: 01-17-2019 EBV Panel Jose Miguel Mckenzie Start: 11-23-2018 Lipid 1996 panel - S [place] or Plasma Jd Brennan MD Work Phone: Biopsy of liver Jd kennedy Work Phone: Cystoscopy Hernan cruz Comment on above: LEFT RPG AND STENT; Dilation and curettage Tramaine Mckenzie Plan of Treatment Date Care Activity Detail Author Start: 07-01-2025 Screening for malign ant neoplasm of colon [facility] Start: 12-17-2024 End: 12-17-2024 Patient encounter procedure 12/17/2024 8:00 AM EDT Office Visit [address] [address] Jd Brennan MD 42 [place] [id number] [facility] Start: 12-11-2024 End: 06-11-2025 CBC panel - Blood by Automated count CBC Lab Routine Type 2 diabetes mellitus without complication, without long-term current use of insulin Primary hypertension Expected: 12/11/2024 (Approximate), Expires: 06/11/2025 [facility] Service Area Work Phone: Comment on above: Expected: 12/11/2024 (Approximate), Expires: 06/11/2025 Start: 12-11-2024 End: 06-11-2025 Cobalamin (Vitamin B12) [Mass/volume] in Serum or Plasma Vitamin B12 Lab Routine Low vitamin B12 level Expected: 12/11/2024 (Approximate), Expires: 06/11/2025 [facility] Work Phone: Comment on above: Expected: 12/11/2024 (Approximate), Expires: 06/11/2025 Start: 12-11-2024 End: 06-11-2025 Comprehensive metabolic 2000 panel - Serum or Plasma Comprehensive Metabolic Panel Lab Routine Type 2 diabetes mellitus without complication, without long-term current use of insulin Primary hypertension Expected: 12/11/2024 (Approximate), Expires: 06/11/2025 [facility] Work Phone: Comment on above: Expected: 12/11/2024 (Approximate), Expires: 06/11/2025 Start: 12-11-2024 End: 06-11-2025 Hemoglobin A1c/Hemoglobin.total in Blood Hemoglobin A1C Lab Routine Type 2 diabetes mellitus without complication, without long-term current use of insulin Expected: 12/11/2024 (Approximate), Expires: 06/11/2025 [facility] Work Phone: Comment on above: Expected: 12/11/2024 (Approximate), Expires: 06/11/2025 Start: 12-11-2024 End: 06-11-2025 Lipid 1996 panel - Serum or Plasma Lipid Panel Lab Routine Mixed hyperlipidemia Expected: 12/11/2024 (Approximate), Expires: 06/11/2025 [facility] Work Phone: Comment on above: Expected: 12/11/2024 (Approximate), Expires: 06/11/2025 Start: 12-11-2024 End: 06-11-2025 Magnesium [Mass/volume] in Serum or Plasma Magnesium Lab Routine Type 2 diabetes mellitus without complication, without long-term current use of insulin Primary hypertension Expected: 12/11/2024 (Approximate), Expires: 06/11/2025 [facility] Work Phone: Comment on above: Expected: 12/11/2024 (Approximate), Expires: 06/11/2025 Start: 12-11-2024 End: 06-11-2025 Thyrotropin [Units/volume] in Serum or Plasma Thyroid Stimulating Hormone Lab Routine Type 2 diabetes mellitus without complication, without long-term current use of insulin Primary hypertension Expected: 12/11/2024 (Approximate), Expires: 06/11/2025 [facility] Work Phone: Comment on above: Expected: 12/11/2024 (Approximate), Expires: 06/11/2025 Start: 11-05-2024 Influenza vaccination [facility] Start: 09-06-2024 End: 09-06-2024 ambulatory 09/06/2024 4:[address] [facility] [address] [place] [id number] Olena Perez, PT [address] [facility] [place], [place] [id number] [facility] Start: 08-31-2024 End: 08-31-2024 Patient encounter procedure 08/31/2024 2:00 PM EDT Appointment [address] [phone] [facility] Start: 08-30-2024 End: 10-30-2025 DBT Breast - bilateral BI mammo bilateral screening tomosynthesis Imaging Routine Screening mammogram for breast cancer Expected: 08/30/2024, Expires: 10/30/2025 [facility] Service Area Work Phone: Comment on above: Expected: 08/30/2024 , Expires: 10/30/2025 Start: 08-28-2024 Screening for malign ant neoplasm of breast Mammogram [facility] Start: 06-11-2024 End: 06-11-2024 Patient encounter procedure 06/11/2024 2:00 PM EDT Office Visit [address] [place] [phone] Jd Brennan MD [address] [address] [facility] Start: 06-06-2024 End: 03-08-2025 Comprehensive metabolic 2000 panel - Serum or Plasma Comprehensive Metabolic Panel Lab Routine Type 2 diabetes mellitus without complication, without long-term current use of insulin (Multi) Expected: 06/06/2024 (Approximate), Expires: 03/08/2025 [facility] Service Area Work Phone: Comment on above: Expected: 06/06/2024 (Approximate), Expires: 03/08/2025 Start: 06-06-2024 End: 03-08-2025 Hemoglobin A1c/Hemoglobin.total in Blood Hemoglobin A1C Lab Routine Type 2 diabetes mellitus without complication, without long-term current use of insulin (Multi) Expected: 06/06/2024 (Approximate), Expires: 03/08/2025 [facility] Work Phone: Comment on above: Expected: 06/06/2024 (Approximate), Expires: 03/08/2025 Start: 12-05-2023 End: 12-05-2023 Patient encounter procedure 12/05/2023 8:20 AM EDT Office Visit [facility] [address] [place] [phone] Jd Brennan MD [address] [place] [address] [facility] Start: 11-29-2023 End: 08-28-2024 Comprehensive metabolic 2000 panel - Serum or Plasma Comprehensive Metabolic Panel Lab Routine Primary hypertension Type 2 diabetes mellitus without complication, without long-term current use of insulin (Multi) Expected: 11/29/2023 (Approximate), Expires: 08/28/2024 [facility] Service Area Work Phone: Comment on above: Expected: 11/29/2023 (Approximate), Expires: 08/28/2024 Start: 11-29-2023 End: 08-28-2024 Hemoglobin A1c/Hemoglobin.total in Blood Hemoglobin A1C Lab Routine Primary hypertension Type 2 diabetes mellitus without complication, without long-term current use of insulin (Multi) Expected: 11/29/2023 (Approximate), Expires: 08/28/2024 [facility] Work Phone: Comment on above: Expected: 11/29/2023 (Approximate), Expires: 08/28/2024 Start: 11-21-2023 Hemoglobin A1c measurement Diabetes: Hemoglobin A1C [facility] Start: 11-06-2023 COVID-19 Vaccine () COVID-19 Vaccine () [facility] Start: 11-06-2023 Influenza vaccination [facility] Start: 09-03-2023 Screening for malign ant neoplasm of cervix [facility] Start: 08-19-2023 End: 10-18-2024 DBT Breast - bilateral BI mammo bilateral screening tomosynthesis Imaging Routine Screening mammogram for breast cancer Expected: 08/19/2023, Expires: 10/18/2024 [facility] Service Area Comment on above: Expected: 08/19/2023 , Expires: 10/18/2024 Start: 04-14-2023 FUV, Provider: Taurus Bazzi, Status: Pen, Time: 2:00 PM FUV, Provider: Taurus Bazzi, Status: Pen, Time: 2:00 PM [id number] d [address] Work Phone: Start: 04-14-2023 End: 04-14-2023 Patient encounter procedure 04/14/2023 2:00 PM EST Office Visit [facility] [address] [place] [phone] Taurus Bazzi MD [address] [facility] Level, [facility] [address] [place] [address] [facility] Start: 03-21-2023 End: 03-21-2023 Patient encounter procedure 03/21/2023 10:00 AM EST Office Visit [facility] [address] [place] [phone] Jd Brennan MD [address] [place] [address] [facility] Start: 12-12-2022 Hemoglobin A1c measurement Diabetes: Hemoglobin A1C [facility] Start: 12-11-2022 Screening for malign ant neoplasm of breast Mammogram [facility] Start: 11-05-2022 COVID-19 Vaccine () COVID-19 Vaccine () [facility] Start: 11-05-2022 Influenza vaccination Influenza Vacc ine (#1) [facility] Start: 10-14-2022 FUV, Provider: Taurus Bazzi, Status: Pen, Time: 3:15 PM FUV, Provider: Taurus Bazzi, Status: Pen, Time: 3:15 PM [id number] d [address] Work Phone: Start: 09-16-2022 End: 09-17-2023 Comprehensive metabolic 2000 panel - Serum or Plasma Comprehensive Metabolic Panel Lab Routine Type 2 diabetes mellitus without complication, without long-term current use of insulin (CMS/HCC) Expected: 09/16/2022 (Approximate), Expires: 09/17/2023 [facility] Service Area Work Phone: Comment on above: Expected: 09/16/2022 (Approximate), Expires: 09/17/2023 Start: 09-16-2022 End: 09-17-2023 Hemoglobin A1c/Hemoglobin.total in Blood Hemoglobin A1C Lab Routine Type 2 diabetes mellitus without complication, without long-term current use of insulin (CMS/HCC) Expected: 09/16/2022 (Approximate), Expires: 09/17/2023 [facility] Work Phone: Comment on above: Expected: 09/16/2022 (Approximate), Expires: 09/17/2023 Start: 09-12-2022 Hemoglobin A1c measurement Diabetes: Hemoglobin A1C [facility] Start: 06-21-2022 End: 06-22-2023 C reactive protein [Mass/volume] in Serum or Plasma C-reactive protein Lab Routine Fibromyalgia Expected: 06/21/2022 (Approximate), Expires: 06/22/2023 [facility] Work Phone: Comment on above: Expected: 06/21/2022 (Approximate), Expires: 06/22/2023 Start: 06-21-2022 End: 06-22-2023 Cologuard colon cancer screening Cologuard colon cancer screening Lab Routine Encounter for screening for malignant neoplasm of colon Expected: 06/21/2022 (Approximate), Expires: 06/22/2023 [facility] Work Phone: Comment on above: Expected: 06/21/2022 (Approximate), Expires: 06/22/2023 Start: 06-21-2022 End: 06-22-2023 Comprehensive metabolic 2000 panel - Serum or Plasma Comprehensive Metabolic Panel Lab Routine Type 2 diabetes mellitus without complication, without long-term current use of insulin (CMS/HCC) Primary hypertension Expected: 06/21/2022 (Approximate), Expires: 06/22/2023 [facility] Service Area Work Phone: Comment on above: Expected: 06/21/2022 (Approximate), Expires: 06/22/2023 Start: 06-21-2022 End: 06-22-2023 Erythrocyte sedimentation rate Sedimentation Rate Lab Routine Fibromyalgia Expected: 06/21/2022 (Approximate), Expires: 06/22/2023 [facility] Work Phone: Comment on above: Expected: 06/21/2022 (Approximate), Expires: 06/22/2023 Start: 06-21-2022 End: 06-22-2023 Hemoglobin A1c/Hemoglobin.total in Blood Hemoglobin A1C Lab Routine Type 2 diabetes mellitus without complication, without long-term current use of insulin (CMS/HCC) Expected: 06/21/2022 (Approximate), Expires: 06/22/2023 [facility] Work Phone: Comment on above: Expected: 06/21/2022 (Approximate), Expires: 06/22/2023 Start: 03-22-2022 EPV, Provider: Jd Brennan, Status: Pen, Time: 8:00 AM EPV, Provider: Jd Brennan, Status: Pen, Time: 8:00 AM [facility] Work Phone: Start: 03-22-2022 Patient encounter procedure [facility] [place] Start: 11-18-2021 EPV, Provider: Jd Brennan, Status: Pen, Time: 8:00 AM EPV, Provider: Jd Brennan, Status: Pen, Time: 8:00 AM [facility] Work Phone: Start: 09-03-2021 Yearly Adult Physical Yearly Adult [facility] Start: 08-28-2021 EPV, Provider: Jd Brennan, Status: Pen, Time: 4:00 PM EPV, Provider: Jd Brennan, Status: Pen, Time: 4:00 PM [facility] Work Phone: Start: 03-19-2021 FUV, Provider: Marisa Silverman, Status: Pen, Time: 4:00 PM FUV, Provider: Marisa Silverman, Status: Pen, Time: 4:00 PM [facility] Work Phone: Start: 03-19-2021 COVID-19 Vaccine (3 - Booster for Pfizer series) COVID-19 Vaccine (3 - Booster for Pfizer series) [facility] Start: 03-02-2021 FUV, Provider: Marisa Silverman, Status: Pen, Time: 3:00 PM FUV, Provider: Marisa Silverman, Status: Pen, Time: 3:00 PM [facility] Work Phone: Start: 02-24-2021 FUV, Provider: Mraisa Silverman, Status: Pen, Time: 3:30 PM FUV, Provider: Marisa Silverman, Status: Pen, Time: 3:30 PM [facility]: Start: 02-20-2021 NURSEVST, Provider: PRIMARY NAYELI [facility] ASHL1 RN 1,[id number], Status: Pen, Time: 10:30 AM NURSEVST, Provider: PRIMARY NAYELI [facility] ASHL1 RN 1,[id number], Status: Pen, Time: 10:30 AM [facility] Work Phone: Start: 02-17-2021 EPV, Provider: Jd Brennan, Status: Pen, Time: 3:40 PM EPV, Provider: Jd Brennan, Status: Pen, Time: 3:40 PM [facility] [address] Work Phone: Start: 02-05-2021 FUV, Provider: Soy Santacruz, Status: Pen, Time: 3:30 PM FUV, Provider: Soy Santacruz, Status: Pen, Time: 3:30 PM [facility] [address] Work Phone: Start: 01-15-2021 FUV, Provider: Soy Santacruz, Status: Pen, Time: 3:30 PM FUV, Provider: Soy Santacruz, Status: Pen, Time: 3:30 PM -[facility] [address] Work Phone: Start: 12-25-2020 FUV, Provider: Soy Santacruz, Status: Pen, Time: 10:00 AM FUV, Provider: Soy Santacruz, Status: Pen, Time: 10:00 AM [facility] [address] Work Phone: Start: 12-18-2020 EPV, Provider: Jd Brennan, Status: Pen, Time: 9:40 AM EPV, Provider: Jd Brennan, Status: Pen, Time: 9:[address] Work Phone: Start: 12-18-2020 Patient encounter procedure [facility] Start: 12-12-2020 COVID-19 Vaccine (3 - Booster for Pfizer series) COVID-19 Vaccine (3 - Booster for Pfizer series) [facility] Start: 12-12-2020 COVID-19 Vaccine (3 - Pfizer series) COVID-19 Vaccine (3 - Pfizer series) [facility] Start: 12-11-2020 FUV, Provider: Soy Santacruz, Status: Pen, Time: 10:30 AM FUV, Provider: Soy Santacruz, Status: Pen, Time: 10:30 AM [facility] 300 Work Phone: Start: 11-14-2020 COVID-19 Vaccine (3 - Pfizer risk series) COVID-19 Vaccine (3 - Pfizer risk series) [facility] Start: 11-06-2020 FUV, Provider: Soy Santacruz, Status: Pen, Time: 10:00 AM FUV, Provider: Soy Santacruz, Status: Pen, Time: 10:00 AM [facility] [address] Work Phone: Start: 10-18-2020 DTaP/Tdap/Td Vaccine s (2 - Td or Tdap) DTaP/Tdap/Td Vaccines (2 - Td or Tdap) [facility] Start: 10-18-2020 Tetanus vaccination Tetanus: Every 1 0yrs [facility] Start: 2020 Administration of he rpes zoster vaccine Zoster Vaccines (1 of 2) [facility] Start: 2020 Screening for malign ant neoplasm of colon [facility] Start: 2020 Zoster Vaccines (1 of 2) Zoster Vacc darwin (1 of 2) [facility] Start: 11-24-2019 Lipid panel Lipid Panel [facility] Start: 2010 Screening for malign ant neoplasm of breast Mammogram [facility] Start: 09-17-2004 Hepatitis B Vaccines (3 of 3 - 19+ 3-dose series) Hepatitis B Vaccines (3 of 3 - 19+ 3-dose series) [facility] Start: 08-26-1991 Screening for malign ant neoplasm of cervix [facility] Start: 1989 Hepatitis A Vaccines (1 of 2 - Risk 2-dose series) Hepatitis A Vaccines (1 of 2 - Risk 2-dose series) [facility] Start: 1989 Hepatitis B Vaccines (1 of 3 - 19+ 3-dose series) Hepatitis B Vaccines (1 of 3 - 19+ 3-dose series) [facility] Start: 1989 Pneumococcal vaccination Pneum ococcal Vaccine (1 of 2 - PCV) [facility] Start: 1989 Urine screening for protein Diabetes: Urine Protein Screening [facility] Start: 1988 Hepatitis C screening Hepatitis C Sc reening [facility] Start: 1985 HIV screening HIV Screening [facility] Start: 1982 Depression screening using PHQ-9 (Patient Health Questionnaire 9) score Depression Screening (PHQ-2/9) [facility] Start: 1980 Diabetic foot examination [facility] Start: 1980 Glaucoma screening Diabetes: R etinopathy Screening [facility] Start: 1980 Microalbumin measurement, urine, quantitative Urine Microalbumin [facility] Start: 1980 Ophthalmic examinati on and evaluation [facility] Start: 1976 Pneumococcal Vaccine : Pediatrics (0 to 5 Years) and At-Risk Patients (6 to 64 Years) (1 - PCV) Pneumococcal Vaccine: Pediatrics (0 to 5 Years) and At-Risk Patients (6 to 64 Years) (1 - PCV) [facility] Start: 1976 Pneumococcal Vaccine : Pediatrics (0 to 5 Years) and At-Risk Patients (6 to 64 Years) (1 of 2 - PCV) Pneumococcal Vaccine: Pediatrics (0 to 5 Years) and At-Risk Patients (6 to 64 Years) (1 of 2 - PCV) [facility] Start: 1973 History and physical examination, annual for health maintenance Wellness Visit [facility] Start: 08-26-1971 Hepatitis A Vaccines (1 of 2 - Risk 2-dose series) Hepatitis A Vaccines (1 of 2 - Risk 2-dose series) [facility] Start: 08-26-1971 MMR Vaccines (1 of 1 - Standard series) MMR Vaccines (1 of 1 - Standard series) [facility] Start: 1970 Hemoglobin A1c measurement A1C [facility] Start: 1970 Hepatitis B Vaccines (1 of 3 - 3-dose series) Hepatitis B Vaccines (1 of 3 - 3-dose series) [facility] Start: 1970 HIV screening HIV Screening [facility] Start: 1970 Lipid panel Lipid Panel [facility] Start: 1970 Screening for malign ant neoplasm of cervix Pap Smear [facility] Start: 1970 Screening for malign ant neoplasm of colon [facility] Start: 1970 Skin Cancer Screening Skin Cancer Sc reening [facility] Start: 1970 Urine screening for protein Diabetes: Urine Protein Screening [facility] Start: 1970 Yearly Adult Physical Yearly Adult P hysical [facility] End: 08-29-2023 DBT Breast - bilateral [facility] Work Phone: Comment on above: Once for 1 Occurrenc es starting 08/29/2023 until 08/29/2023 End: 09-06-2024 DBT Breast - bilateral diagnostic [facility] Service Area Work Phone: Comment on above: Once for 1 Occurrenc es starting 09/06/2024 until 09/06/2024 End: 09-06-2024 US Breast - right limited [facility] Service Area Work Phone: Comment on above: Once for 1 Occurrenc es starting 09/06/2024 until 09/06/2024 Immunizations Immunization Date Immunization Notes Care Provider Jenny madera 11-27-2021 influenza, injectabl e, quadrivalent, preservative free Jd Brennan Work Phone: [id number] [address] Work Phone: 11-27-2021 influenza virus vaccine, unspecified formulation Jd Brennan MD Work Phone: [facility] Work Phone: 12-06-2020 influenza, seasonal, injectable Jd Brennan Work Phone: [facility] Work Phone: Comment on above: Series: 10-17-2020 Pfizer-BioNTech COVID-19 Vacc 30 MCG/0.3ML Intramuscular Suspension Jd Brennan Work Phone: [facility] [address] Work Phone: 09-26-2020 [email or web address] COVID-19 Vacc 30 MCG/0.3ML Intramuscular Suspension Jd T Mika Work Phone: [facility] 300 Work Phone: 11-22-2019 influenza, seasonal, injectable dJ Brennan Work Phone: [address] Work Phone: Comment on above: Series: 10-18-2010 tetanus toxoid, redu katheryn diphtheria toxoid, and acellular pertussis vaccine, adsorbed Jd Brennan Work Phone: [address] Work Phone: Comment on above: Series: 04-21-2004 hepatitis B vaccine, adult dosage Jd Brennan MD Work Phone: [facility] Work Phone: 03-20-2004 hepatitis B vaccine, adult dosage Jd Brennan MD Work Phone: [facility] Payers Date Payer Category Payer Managed Care (Private) [id number] [id number] 2023 Private Health Insurance [id number] 2018 Unknown 2018 Unknown [id number] 2017 Unknown [id number] 1970 Unknown [id number] 2.16. [id number] 1970 Unknown [id number] 2.16. [id number] 1970 Unknown [id number] 2.16. [id number] 1970 Unknown [id number] 2.16. [id number] 1970 Unknown [id number] 2.16. [id number] 1970 Unknown [id number] 2.16.8 40.1.142253.3.579.2.1069 1970 Unknown [id number] 2.16.8 40.1.997366.3.579.2.1069 1970 Unknown [id number] 2.16.8 40.1.667194.3.579.2.1069 1970 Unknown [id number] 2.16.8 40.1.137430.3.579.2.1069 1970 Unknown [id number] 2.16.8 40.1.962723.3.579.2.9 1970 Unknown [id number] 2.16.8 40.1.379263.3.579.2.9 1970 Unknown [id number] 2.16.8 40.1.911440.3.579.2.1068 1970 Unknown [id number] 2.16. 840.1.467249.3.579.2.1244 1970 Unknown [id number] 2.16. 840.1.227959.3.579.2.4 1970 Unknown [id number] 2.16. 840.1.272448.3.579.2.4 1970 Unknown [id number] 2.16 [id number] 1970 Unknown [id number] 2.16.8 40.1.793115.3.579.2.1243 1970 Unknown [id number] 2.16.8 40.1.157882.3.579.2.3 1970 Unknown [id number] 2.16.8 [id number] Unknown [id number] Social History Date Type Detail Facility Start: 03-05-2017 Tobacco smoking status IDIS Unknown if ever smoked [employer] Work Phone: Start: 1970 Sex Assigned At Not on file [facility] Work Phone: Start: 06-21-2022 End: 06-11-2024 Never chewed tobacco Never chewed tobacco [address] Work Phone: Start: 05-03-2021 End: 06-21-2022 Tobacco smoking status NHIS Never smoked tobacco [facility] Start: 05-03-2021 End: 06-21-2022 Tobacco use and exposure Smokeless tobacco non-user [facility] Start: 04-23-2021 End: 06-11-2024 Exposure to SARS-CoV-2 (event) Not sure [facility] Start: 06-21-2022 End: 09-06-2024 Alcohol intake Lifetime non-drinker (finding) [facility] Work Phone: Start: 06-21-2022 End: 06-11-2024 Tobacco use panel [facility] Work Phone: Start: 1970 Sex Assigned At Female [facility] Start: 07-24-2022 Gender identity Identifies as female gender (finding) [facility] Work Phone: NEGATED: Highlighted row - - [facility] Work Phone: Medical Equipment Procedure Code Equipment Code Equipment Origin al Text Equipment Identifier Dates ReliOn Pen Needl es 31G X 8 MM USE 1 ONCE DAILY AT BEDTIME Refills: 0 Start : 15-Feb-2018 Active Start: 02-15-2018 ReliOn Pen Needl es 31G X 8 MM USE 1 ONCE DAILY AT BEDTIME Refills: 0 Start : 15-Feb-2018 Active Start: 02-15-2018 ReliOn Pen Needl es 31G X 8 MM USE 1 ONCE DAILY AT BEDTIME Refills: 0 DO Start : 15-Feb-2018 Active Start: 02-15-2018 ReliOn Pen Needl es 31G X 8 MM USE 1 ONCE DAILY AT BEDTIME Refills: 0 Start : 15-Feb-2018 Active Start: 02-15-2018 Functional Status Date Assessment Result Facility NEGATED: Highlighted row Functional performance Functional status health issues are not documented Disease [facility] Work Phone: Mental Status Date Assessment Result Facility NEGATED: Highlighted row Cognitive function [Interpretation] Cognitive status health issues are not documented Disease [facility] [facility] Work Phone: Clinical Notes 09-02-2016 to 08-30-2024 Lucia Simmons MD - 08/30/2024 10:00 AM EDTPatient InstructionsPahiren Brennan MD - 06/11/2024 2:00 PM EDTPmike Brennan MD - 03/29/2024 1:40 PM EST Note Date & Type Note Facility 08-30-2024 History of Present illness Narrative Subjective: Nadia Addison is a 54 y.o. female who presents to clinic today for SWELLING (SWELLING DOWN BOTH SIDES ) Had mammogram 1 year ago which was birads 1. She notes that she went to the chiropractor on Tuesday and Tuesday. Feels like these started on Tuesday. No new meds, deodarant or vaccines. She was started on crestor 6 months ago. She's also been having shoulder pain on the right side. Does hurt to reach backwards. Review of Systems Assessment/Plan: Nadia Addison is a 54 y.o. femalewho presents to clinic today to address the following issues: 1. Swollen lymph nodes 2. Screening mammogram for breast cancer BI mammo bilateral screening tomosynthesis 3. Chronic upper back pain Referral to Physical Therapy 4. Neck pain Referral to Physical Therapy 5. Acute pain of right shoulder Referral to Physical Therapy Swollen lymph nodes: Discussed with patient that I believe this is a reactive reaction to her adjustment she had a chiropractor and that if lymph nodes do not resolve she should be seen again next week for further evaluation and management. Breast exam was reassuring as I was potentially concerned that there was involvement of breast tissue but this does not seem to be the case. Regardless we will obtain screening mammogram Patient has chronic upper back neck and right shoulder pain will refer to physical therapy for further evaluation as she has not done this in over 10 years Problem List Items Addressed This Visit None Visit Diagnoses Swollen lymph nodes - Primary Screening mammogram for breast cancer Relevant Orders BI mammo bilateral screening tomosynthesis Chronic upper back pain Relevant Orders Referral to Physical Therapy Neck pain Relevant Orders Referral to Physical Therapy Acute pain of right shoulder Relevant Orders Referral to Physical Therapy Patient Instructions Okay to take ibuprofen 600mg 2-3 x daily for a few days. Physical therapy mammogram Follow up: as needed Return precautions discussed. An After Visit Summary was given to the patient. All questions were answered and patient in agreement with plan. Objective: BP 118/82 Pulse 78 Ht 1.651 m (5' 5) Wt 88.7 kg (195 lb 9.6 oz) SpO2 97% BMI 32.55 kg/m Physical Exam Vitals and nursing note reviewed. Exam conducted with a dimpling machine operator present (Jessica). Constitutional: General: She is not in acute distress. Appearance: Normal appearance. HENT: Head: Normocephalic and atraumatic. Mouth/Throat: Mouth: Mucous membranes are moist. Eyes: General: No scleral icterus. Right eye: No discharge. Left eye: No discharge. Extraocular Movements: Extraocular movements intact. Conjunctiva/sclera: Conjunctivae normal. Pulmonary: Effort: No respiratory distress. Chest: Chest wall: No mass, lacerations, deformity, swelling, tenderness, crepitus or edema. There is no dullness to percussion. Breasts: Wilber Score is 5. Breasts are symmetrical. Right: Normal. Left: Normal. Musculoskeletal: Comments: Palpable lymphadenopathy on bilateral back, not in axilla Lymphadenopathy: Upper Body: Right upper body: No supraclavicular, axillary or pectoral adenopathy. Left upper body: No supraclavicular, axillary or pectoral adenopathy. Skin: General: Skin is warm and dry. Neurological: General: No focal deficit present. Mental Status: She is alert and oriented to person, place, and time. Psychiatric: Attention and Perception: Attention normal. Mood and Affect: Mood normal. Speech: Speech normal. Behavior: Behavior normal. Cognition and Memory: Cognition and memory normal. Judgment: Judgment normal. I spent 25 minutes in total time for this visit including all related clinical activities before, during, and after the visit excluding other billable activities/procedure time. Lucia Simmons MD documented in this encounter [facility] Work Phone: 08-30-2024 Instructions Lucia Simmons MD - 08/30/2024 10:00 AM EDT Okay to take ibuprofen 600mg 2-3 x daily for a few days. Physical therapy mammogram documented in this encounter [facility] Work Phone: 06-11-2024 History of Present illness Narrative Subjective Patient ID: Nadia Addison is a 53 y.o. female who presents for Follow-up (3mo chk- rev labs). HPI Blood pressure stable on medication. Lipids stable on medication Is taking B12, have not checked a level in a while we will add that. A1c is down to 8.3, tolerating the 7.5 mg of Mounjaro. Continue Farxiga and metformin. Weight is down about 16 pounds. Labs and office visit in 6 months Review of Systems Constitutional: Negative for fatigue. Eyes: Negative for visual disturbance. Respiratory: Negative for cough, chest tightness and shortness of breath. Cardiovascular: Negative for chest pain and palpitations. Gastrointestinal: Negative for abdominal pain, constipation and diarrhea. Skin: Negative for rash. Neurological: Negative for headaches. Objective BP 128/72 Pulse 82 Ht 1.651 m (5' 5) Wt 88.1 kg (194 lb 3.2 oz) SpO2 97% BMI 32.32 kg/m Physical Exam Constitutional: Appearance: Normal appearance. HENT: Head: Normocephalic and atraumatic. Skin: General: Skin is warm and dry. Neurological: General: No focal deficit present. Mental Status: She is alert and oriented to person, place, and time. Psychiatric: Mood and Affect: Mood normal. Behavior: Behavior normal. Thought Content: Thought content normal. Judgment: Judgment normal. Assessment/Plan Problem List Items Addressed This Visit ICD-10-CM Hypertension I10 Relevant Orders CBC Comprehensive Metabolic Panel Thyroid Stimulating Hormone Magnesium Type 2 diabetes mellitus without complication, without long-term current use of insulin - Primary E11.9 Relevant Orders CBC Comprehensive Metabolic Panel Hemoglobin A1C Thyroid Stimulating Hormone Magnesium Non-seasonal allergic rhinitis J30.89 Relevant Medications montelukast (Singulair) 10 mg tablet fexofenadine (Brynn) 180 mg tablet Low vitamin B12 level R79.89 Relevant Orders Vitamin B12 Mixed hyperlipidemia E78.2 Relevant Medications rosuvastatin (Crestor) 10 mg tablet Other Relevant Orders Lipid Panel documented in this encounter [facility] Work Phone: 03-29-2024 History of Present illness Narrative Subjective Patient ID: Nadia Addison is a 53 y.o. female who presents for Follow-up (Cough x 1 week). HPI URI symptoms and cough for the last week. Did have a little pain when she coughs. Pulse ox normal on room air Lungs are clear Prednisone for 5 days Review of Systems Constitutional: Positive for fatigue. Negative for chills and fever. Respiratory: Positive for cough. Negative for shortness of breath and wheezing. Cardiovascular: Positive for chest pain. Negative for palpitations. Gastrointestinal: Negative for diarrhea and nausea. Objective BP 116/82 Pulse 77 Ht 1.651 m (5' 5) Wt 90.2 kg (198 lb 12.8 oz) SpO2 99% BMI 33.08 kg/m Physical Exam Constitutional: Appearance: Normal appearance. HENT: Head: Normocephalic and atraumatic. Cardiovascular: Rate and Rhythm: Normal rate and regular rhythm. Heart sounds: Normal heart sounds. Pulmonary: Effort: Pulmonary effort is normal. Breath sounds: Normal breath sounds. Skin: General: Skin is warm and dry. Neurological: General: No focal deficit present. Mental Status: She is alert and oriented to person, place, and time. Psychiatric: Mood and Affect: Mood normal. Behavior: Behavior normal. Thought Content: Thought content normal. Judgment: Judgment normal. Assessment/Plan Problem List Items Addressed This Visit ICD-10-CM Mild intermittent asthma without complication (HHS-HCC) - Primary J45.20 Relevant Medications predniSONE (Deltasone) 20 mg tablet documented in this encounter [facility] Work Phone: 03-08-2024 History of Present illness Narrative Subjective Patient ID: Nadia Addison is a 53 y.o. female who presents for Follow-up (3 MO FU REV LABS ). HPI A1c is stable at 9. She is getting better appetite reduction on the Mounjaro compared to the Trulicity. Weight is down about 10 pounds in the last year. Continue Farxiga and metformin Increase Mounjaro to 7.5 mg weekly Lab and office visit 3 months. Blood pressure stable on medication Heartburn stable on medication Fibromyalgia stable on as needed medicines Review of Systems Constitutional: Negative for fatigue. HENT: Positive for congestion. Respiratory: Negative for shortness of breath. Cardiovascular: Negative for chest pain and palpitations. Gastrointestinal: Negative for nausea. Skin: Negative for rash. Objective BP 128/84 Pulse 71 Ht 1.651 m (5' 5) Wt 91.1 kg (200 lb 12.8 oz) SpO2 98% BMI 33.41 kg/m Physical Exam Constitutional: Appearance: Normal appearance. HENT: Head: Normocephalic and atraumatic. Skin: General: Skin is warm and dry. Neurological: General: No focal deficit present. Mental Status: She is alert and oriented to person, place, and time. Psychiatric: Mood and Affect: Mood normal. Behavior: Behavior normal. Thought Content: Thought content normal. Judgment: Judgment normal. Assessment/Plan Problem List Items Addressed This Visit ICD-10-CM GERD (gastroesophageal reflux disease) K21.9 Relevant Medications omeprazole (PriLOSEC) [address] capsule Hypertension I10 Relevant Medications aspirin 81 mg EC tablet metoprolol succinate XL (Toprol XL) 50 mg 24 hr tablet Fibromyalgia M79.7 Relevant Medications cyclobenzaprine (Flexeril) 5 mg tablet sertraline (Zoloft) 100 mg tablet Type 2 diabetes mellitus without complication, without long-term current use of insulin (Multi) E11.9 Relevant Medications dapagliflozin propanediol (Farxiga) 10 mg metFORMIN (Glucophage) 1,000 mg tablet tirzepatide (Mounjaro) 7.5 mg/0.5 mL pen injector Other Relevant Orders Comprehensive Metabolic Panel Hemoglobin A1C documented in this encounter [facility] Work Phone: 08-29-2023 History of Present illness Narrative Subjective Patient ID: Nadia Addison is a 53 y.o. female who presents for 6 month follow up (C/o vertigo x 2 weeks / headaches ). HPI With good diet changes A1c is down to 8.9, from 9.6. Still on the same medications. I think we need to change Trulicity to Mounjaro 5 mg. Since she has a bunch of it she is going to stick with it. If she runs out before 3 months she will call and we will try Mounjaro 5 mg weekly. Continue the other medications for diabetes. She does have intermittent asthma, will refill the albuterol inhaler. Continue the montelukast. Rest of the CMP was okay. Other problems with changing to Mounjaro or if needed Xultophy or Soliqua, she changes insurance in September. Office visit and lab 3 months labs through [facility]. Might be changing with new insurance. Diagnosis of inflammatory polyp thyropathy done years ago. She has been stable off medication has not seen rheumatology in years. Dizziness for 2 weeks. Exam is benign. Things are slowly getting better. I do not think she needs any medicine, but did give her prescription for short-term prednisone if needed. Continue the Brynn for allergies. Review of Systems Constitutional: Positive for fatigue. HENT: Negative for hearing loss. Respiratory: Positive for cough and shortness of breath. Cardiovascular: Negative for chest pain and palpitations. Neurological: Positive for dizziness. Objective BP 122/84 Pulse 86 Ht 1.651 m (5' 5) Wt 92.5 kg (204 lb) SpO2 96% BMI 33.95 kg/m Physical Exam Constitutional: Appearance: Normal appearance. HENT: Head: Normocephalic and atraumatic. Right Ear: Tympanic membrane and ear canal normal. Left Ear: Tympanic membrane and ear canal normal. Neck: Vascular: No carotid bruit. Cardiovascular: Rate and Rhythm: Normal rate and regular rhythm. Heart sounds: Normal heart sounds. Pulmonary: Effort: Pulmonary effort is normal. Breath sounds: Normal breath sounds. Lymphadenopathy: Cervical: No cervical adenopathy. Skin: General: Skin is warm and dry. Neurological: General: No focal deficit present. Mental Status: She is alert and oriented to person, place, and time. Psychiatric: Mood and Affect: Mood normal. Behavior: Behavior normal. Thought Content: Thought content normal. Judgment: Judgment normal. Assessment/Plan Problem List Items Addressed This Visit ICD-10-CM Hypertension I10 Relevant Orders Comprehensive Metabolic Panel Hemoglobin A1C Type 2 diabetes mellitus without complication, without long-term current use of insulin (Multi) E11.9 Relevant Orders Comprehensive Metabolic Panel Hemoglobin A1C Mild intermittent asthma without complication ([facility]) - Primary J45.20 Relevant Medications albuterol 90 mcg/actuation inhaler predniSONE (Deltasone) 20 mg tablet fluconazole (Diflucan) 150 mg tablet documented in this encounter [facility] Work Phone: 12-03-2022 History of Present illness Narrative Subjective Patient ID: Nadia Addison is a 52 y.o. female who presents for Sore Throat (EAR FULLNESS, HEADACHES, VERTIGO, AND VOMITING xWK). HPI It is possible she may have some positional vertigo, but these exacerbations really only, neither when she is sick or when the allergies are acting worse. She has year-round allergies but they do get worse usually spring and fall. Using Brynn now. Did not tolerate Sudafed in the past. Used Flonase. Has not used Singulair. Did talk referring to ear nose and throat. Has seen Donald in the past Exam is benign except for dull tympanic membranes Continue Brynn once a day for now. Could change to Zyrtec. Add Singulair 10 mg daily Prednisone taper If she still having problems recommend trying Flonase [id number]. Review of Systems HENT: Positive for congestion, ear pain, postnasal drip, rhinorrhea, sinus pain and sore throat. Negative for hearing loss. Respiratory: Positive for cough. Negative for shortness of breath. Neurological: Positive for dizziness. Negative for headaches. Objective BP 126/68 Pulse 74 Ht 1.676 m (5' 6) Wt 95.7 kg (210 lb 14.4 oz) SpO2 96% BMI 34.04 kg/m Physical Exam Constitutional: Appearance: Normal appearance. HENT: Head: Normocephalic and atraumatic. Cardiovascular: Rate and Rhythm: Normal rate and regular rhythm. Heart sounds: Normal heart sounds. Pulmonary: Effort: Pulmonary effort is normal. Breath sounds: Normal breath sounds. Skin: General: Skin is warm and dry. Neurological: General: No focal deficit present. Mental Status: She is alert and oriented to person, place, and time. Psychiatric: Mood and Affect: Mood normal. Behavior: Behavior normal. Thought Content: Thought content normal. Judgment: Judgment normal. Assessment/Plan Problem List Items Addressed This Visit ICD-10-CM Non-seasonal allergic rhinitis - Primary J30.89 Relevant Medications fexofenadine (Brynn) 180 mg tablet montelukast (Singulair) 10 mg tablet predniSONE (Deltasone) 10 mg tablet documented in this encounter [facility] Work Phone: 09-16-2022 History of Present illness Narrative Subjective Patient ID: Nadia Addison is a 52 y.o. female who presents for Follow-up (REV LABS). HPI A1c down to 8.8 (9.1). doing ok with trulicity 3 mg. We will stick with the 3 mg dose for now. Recheck labs in 6 months. Keep continuing with her good diet. Blood pressure stable on medication continue same meds. Was in the ER for chest pain elevated D-dimer CTA of the chest was normal. Has a follow-up with cardiology tomorrow. Review of Systems Constitutional: Negative for fatigue. Eyes: Negative for visual disturbance. Respiratory: Negative for cough, chest tightness and shortness of breath. Cardiovascular: Negative for chest pain and palpitations. Gastrointestinal: Negative for abdominal pain, constipation and diarrhea. Skin: Negative for rash. Neurological: Negative for headaches. Objective BP 122/82 Pulse 81 Ht 1.676 m (5' 6) Wt 93.8 kg (206 lb 12.8 oz) SpO2 97% BMI 33.38 kg/m Physical Exam Constitutional: Appearance: Normal appearance. HENT: Head: Normocephalic and atraumatic. Cardiovascular: Rate and Rhythm: Normal rate and regular rhythm. Heart sounds: Normal heart sounds. Pulmonary: Effort: Pulmonary effort is normal. Breath sounds: Normal breath sounds. Skin: General: Skin is warm and dry. Neurological: General: No focal deficit present. Mental Status: She is alert and oriented to person, place, and time. Gait: Gait normal. Psychiatric: Mood and Affect: Mood normal. Behavior: Behavior normal. Thought Content: Thought content normal. Judgment: Judgment normal. Assessment/Plan Problem List Items Addressed This Visit Hypertension Type 2 diabetes mellitus without complication, without long-term current use of insulin ([facility]) - Primary Relevant Orders Comprehensive Metabolic Panel Hemoglobin A1C documented in this encounter [facility] Work Phone: 08-05-2022 History of Present illness Narrative I am seeing this patient today as a follow up visit for cardiovascular assessment.Patient is a 52-year-old diabetic non-smoker female with prior medical history significant for hypertension, diabetes, fibromyalgia, GERD, migraine, coming for cardiovascular assessment. Patient presented to the emergency department on August 2022 complaining of chest pain. She states that the pain was a burning sensation in the center of her chest, no radiation, lasted for a few minutes and was self relief. No alleviating or exacerbating symptoms. No prior history of PE or DVT. Patient states that she has an inhaler and had no improvement of symptoms with an inhaler. She denies chest pain, shortness of breath, palpitations, leg edema, lightheadedness, headaches, fever, chills, orthopnea, paroxysmal nocturnal dyspnea or syncope. Patient also reports other atypical chest pain events, but she states that those tingling sensations in her chest are more related to anxiety events. Of note, the patient had a friend that shortly after discovering heart failure (6 months younger than her), and therefore she got scary with this situation.The EKG today shows normal sinus rhythm with no signs of ACS.D-dimer 716, Troponins nl, BNP 20CT chest with no signs of pulmonary embolismStress test was negative for ischemiaThe echocardiogram showed normal LVEF with no wall motion abnormalities.Patient returns today feeling fine, no other complains. Chest pain deemed to be atypical. She denies chest pain, shortness of breath, palpitations, leg edema, lightheadedness, headaches, fever, chills, orthopnea, paroxysmal nocturnal dyspnea or syncope. Patient also reports other atypical chest pain events, but she states that those tingling sensations in her chest are more related to anxiety events. [id number] Work Phone: 08-05-2022 History of Present illness Narrative I was requested by Dr. Brennan to evaluate this patient in consultation for cardiac assessment.Patient is a 52-year-old diabetic non-smoker female with prior medical history significant for hypertension, diabetes, fibromyalgia, GERD, migraine, coming for cardiovascular assessment. Patient presented to the emergency department on August 2022 complaining of chest pain. She states that the pain was a burning sensation in the center of her chest, no radiation, lasted for a few minutes and was self relief. No alleviating or exacerbating symptoms. No prior history of PE or DVT. Patient states that she has an inhaler and had no improvement of symptoms with an inhaler. She denies chest pain, shortness of breath, palpitations, leg edema, lightheadedness, headaches, fever, chills, orthopnea, paroxysmal nocturnal dyspnea or syncope. Patient also reports other atypical chest pain events, but she states that those tingling sensations in her chest are more related to anxiety events. Of note, the patient had a friend that shortly after discovering heart failure (6 months younger than her), and therefore she got scary with this situation.The EKG today shows normal sinus rhythm with no signs of ACS.D-dimer 716, Troponins nl, BNP 20CT chest with no signs of pulmonary embolism [facility] Work Phone: 06-21-2022 History of Present illness Narrative Subjective Patient ID: Nadia Addison is a 51 y.o. female who presents for Follow-up (Rev Labs). HPI Since her fall last October she has had some brain fog and some memory issues. None of this is getting worse but is not getting any better. Also to this time her A1c has been elevated. No major change in headaches or dizziness or balance issues, no diplopia. If she is still having significant troubles in the next 3 months, likely order MRI of the brain.? Neurology referral. She only used 1.5 mg for 1 week and then none for 3 weeks. So the A1c is much better with only 2 weeks of good Trulicity. If she does better with that likely try 4.5 mg of we can get supply issues fixed next office visit Hypertension - Takes medication without side effects. No CP/SOB/Palpitations. Follows a no added salt diet. Counseled diet, activity and weight loss. Cologuard ordered today. Review of Systems Constitutional: Negative for fatigue. Eyes: Negative for visual disturbance. Respiratory: Negative for cough, chest tightness and shortness of breath. Cardiovascular: Negative for chest pain and palpitations. Gastrointestinal: Negative for abdominal pain, constipation and diarrhea. Skin: Negative for rash. Neurological: Positive for light-headedness and headaches. Psychiatric/Behavioral: Negative for sleep disturbance. The patient is not nervous/anxious. Objective BP 118/62 Pulse 80 Ht 1.676 m (5' 6) Wt 94.3 kg (207 lb 12.8 oz) SpO2 98% BMI 33.54 kg/m Physical Exam Constitutional: Appearance: Normal appearance. HENT: Head: Normocephalic and atraumatic. Skin: General: Skin is warm and dry. Neurological: General: No focal deficit present. Mental Status: She is alert and oriented to person, place, and time. Gait: Gait normal. Psychiatric: Mood and Affect: Mood normal. Behavior: Behavior normal. Thought Content: Thought content normal. Judgment: Judgment normal. Assessment/Plan Problem List Items Addressed This Visit Circulatory Hypertension Relevant Orders Comprehensive Metabolic Panel Musculoskeletal Fibromyalgia Relevant Orders Sedimentation Rate C-reactive protein Endocrine/Metabolic Type 2 diabetes mellitus without complication, without long-term current use of insulin ([facility]) - Primary Relevant Orders Comprehensive Metabolic Panel Hemoglobin A1C Other Visit Diagnoses Encounter for screening for malignant neoplasm of colon Relevant Orders Cologuard colon cancer screening documented in this encounter [facility] Work Phone: 06-07-2021 History of Present illness Narrative She likely did not completely get over the sinus infection. She still had a little bit of yellowish drainage before she got sick with the acute illness, but that is more whitish nowBasically sudden onset of cough chills fever muscle aches on Tuesday much better todaySounds like residual sinus infection with new flu.Rest fluids, she had taken to prednisone she had before yesterday and it helped her with her aches and pain she will take it for 2 more days and stopCough pills as neededWithin the next week, if the sinuses do not completely heal up or she starts to get more yellow drainage then take the cefuroxime. [facility] Work Phone: 05-03-2021 History of Present illness Narrative Images from the original note were not included. Patient Name: [facility] Location: Nadia Addison [address] [place] [id number] Date Of : Date Of Visit: 1970 05/03/2021 MRN# Provider: [id number] Kevon Hoang PA-C Chief Complaint Patient presents with Cough Headache Sore Throat Cough, SORE THROAT, headache, wheezing , states chest hurts with deep breath/coughing- states 2 negative covid home tests, states did phone visit with PCP and prescribed prednisone and tessalon pearls, states is on day 3 of RX and feels like its getting worse- Assessment & Plan 1. Bacterial URI No follow-ups on file. Medical Decision Making She has had upper respiratory symptoms for 1 week and is getting worse. She does have a history of pneumonia in the past. She is placed on Amoxil 500 3 times daily for 7 days and Promethazine DM cough syrup. Recommended fluids and rest. If she worsens she needs to be reevaluated. Additional Clinical Comments Discussed over the counter medications for symptomatic management and side effects of medications. Recommended taking all medications with food and to stop medications if they develop any signs of an allergic reaction. Educated patient and/or guardian about signs and symptoms that would warrant further immediate evaluation. Recommended that they should return to urgent care, make an appointment with their family physician, or go to the emergency room if symptoms persist or get acutely worse. Recommended follow up within the next week with their PCP or to get established with a PCP soon in order to follow up appropriately. Subjective 50 y.o. female presents with Cough, Headache, and Sore Throat (Cough, SORE THROAT, headache, wheezing , states chest hurts with deep breath/coughing- states 2 negative covid home tests, states did phone visit with PCP and prescribed prednisone and tessalon pearls, states is on day 3 of RX and feels like its getting worse- ) She has had upper respiratory symptoms for about 1 week now. She did a virtual visit with her physician who placed her on prednisone and Tessalon Perles. Over the past 1 to 2 days she has worsened. Her cough is now wet. She does have a history of pneumonia. She did to home COVID-19 test which were both negative. She does have a low-grade fever as of yesterday. Review Of Systems Review of Systems Constitutional: Positive for fatigue and fever. Negative for chills. HENT: Positive for sore throat. Negative for congestion, ear pain, postnasal drip, rhinorrhea and sinus pressure. Eyes: Negative for redness. Respiratory: Positive for cough. Negative for shortness of breath. Cardiovascular: Negative for chest pain. Gastrointestinal: Negative for abdominal pain, constipation, diarrhea, nausea and vomiting. Genitourinary: Negative for dysuria and frequency. Musculoskeletal: Negative for arthralgias. Skin: Negative for rash. Neurological: Positive for headaches. Negative for dizziness. Medical History History reviewed. No pertinent past medical history. History reviewed. No pertinent surgical history. There is no problem list on file for this patient. Social History Social History Tobacco Use Smoking status: Never Smoker Smokeless tobacco: Never Used Family History History reviewed. No pertinent family history. Objective Physical Exam BP 116/82 (BP Location: Left arm, Patient Position: Sitting, BP Cuff Size: Adult) Pulse 78 Temp 97.9 F (36.6 C) (Infrared) Resp 16 Ht 5' 6 Wt 90.3 kg (199 lb) SpO2 96% BMI 32.12 kg/m Vision/Hearing Exam:No exam data present Physical Exam Constitutional: Appearance: Normal appearance. HENT: Right Ear: Tympanic membrane normal. Left Ear: Tympanic membrane normal. Nose: Nose normal. Mouth/Throat: Pharynx: Oropharynx is clear. No posterior oropharyngeal erythema. Eyes: Conjunctiva/sclera: Conjunctivae normal. Cardiovascular: Rate and Rhythm: Normal rate and regular rhythm. Heart sounds: Normal heart sounds. No murmur heard. Pulmonary: Breath sounds: Normal breath sounds. No wheezing or rhonchi. Abdominal: General: Abdomen is flat. Bowel sounds are normal. Palpations: Abdomen is soft. There is no mass. Musculoskeletal: General: Normal range of motion. Cervical back: No rigidity. Lymphadenopathy: Cervical: No cervical adenopathy. Skin: Findings: No rash. Neurological: General: No focal deficit present. Mental Status: She is alert. Psychiatric: Mood and Affect: Mood normal. Procedure Notes Procedures Results No results found for this or any previous visit (from the past 168 hour(s)). No orders to display Orders Placed This Visit No orders of the defined types were placed in this encounter. Medication List At End Of Visit Current Outpatient Medications Medication Sig Dispense Refill dapagliflozin-metformin (XIGDUO XR) 5-1,000 mg tablet Take 1 Unspecified by mouth . dulaglutide 1.5 mg/0.5 mL Pen Inject 1 Unspecified under the skin . fexofenadine (BRYNN) 180 MG tablet Take 1 Unspecified by mouth . metoprolol succinate (TOPROL-XL) 50 MG 24 hr tablet Take 1 Unspecified by mouth daily . sertraline (ZOLOFT) 100 MG tablet Take 100 mg by mouth daily . amoxicillin (AMOXIL) 500 MG capsule Take 1 (one) capsule (500 mg total) by mouth 3 (three) times a day for 7 days . 21 capsule 0 promethazine-dextromethorphan (PROMETHAZINE-DM) 6.25-15 mg/5 mL syrup Take 5 mL by mouth 4 (four) times a day as needed for cough . 120 mL 0 No current facility-administered medications for this visit. There are no Patient Instructions on file for this visit. documented in this encounter [facility] 12-22-2020 History of Present illness Narrative Patient is a pleasant 50-year-old female who presents today for a 2 week follow-up of right ankle fracture. She states she has began to walk with one crutch on Tuesday and is experiencing some pain and swelling with walking. When she is not walking she is experiencing minor pain and swelling, but otherwise seems to be doing well. She is a diabetic and understands that her healing process may take longer than normal. She will continue to do exercises and wean off of crutches. In 2 weeks she will switch from wearing the boot to the lace up brace. She will return for evaluation in 2 weeks. She states her distress with her job and is scheduled to return to work on 01/08/21 and will as needed if she needs her break extended. [facility] [address] Work Phone: 12-22-2020 History of Present illness Narrative Patient is a pleasant 50-year-old female who presents today for a 2 week follow-up of right ankle fracture. She states she has began to walk with one crutch on Tuesday and is experiencing some pain and swelling with walking. When she is not walking she is experiencing minor pain and swelling, but otherwise seems to be doing well. She is a diabetic and understands that her healing process may take longer than normal. [facility] [address] Work Phone: 10-05-2020 History of Present illness Narrative Nadia is a pleasant 50-year-old female here for follow-up of a right ankle fracture that occurred in October of this year. She voices concern that she still cannot completely extend at her ankle and gets periodic swelling. It is better with use of compression socks and OTC Motrin use approximately 1 dose every other day with good relief. She does do some home stretching and range of motion type exercises, has never been to PT for this injury. She feels her symptoms are about the same as her last office visit here with Dr. Santacruz on January 15 2021. [facility] [address] Work Phone: 09-02-2016 History of Present illness Narrative Pt. presents for annual examSees PCP regularly for chronic illness mgmtDue for pap and mammoPt. reports LMP about 4 years ago after menses became gradually less freqent. Cessation of menses was accompanied by hot flashes, night sweats, and vaginal drynessPt. reports some night time bladder leaking, but declines intervention at this timereports no intercourse since having Covid 02/2020 and desires to resume [address] Work Phone: Chief complaint Narrative - Reported NADIA ADDISON is being seen for a cardiovascular evaluation . FU after tests. [id number] [address] Work Phone: Chief complaint Narrative - Reported NADIA ADDISON is being seen for a cardiovascular evaluation . chest pain. [facility] Work Phone: Evaluation note Diagnosis Bacterial URI- Primary [facility] Diagnosis Type 2 diabetes mellitus without complication, without long-term current use of insulin (CMS/HCC)- Primary Primary hypertension Unspecified essential hypertension Encounter for screening for malignant neoplasm of colon Fibromyalgia Unspecified myalgia and myositis documented in this encounter [facility] Work Phone: Evaluation note* Diagnosis Type 2 diabetes mellitus without complication, without long-term current use of insulin (CMS/HCC)- Primary Primary hypertension Unspecified essential hypertension documented in this encounter [facility] Work Phone: Evaluation note* Diagnosis Non-seasonal allergic rhinitis, unspecified trigger- Primary documented in this encounter [facility] Work Phone: Evaluation note* Diagnosis Type 2 diabetes mellitus without complication, without long-term current use of insulin (Multi)- Primary Mild intermittent asthma without complication (HHS-HCC) Primary hypertension Unspecified essential hypertension documented in this encounter [facility] Work Phone: Evaluation note* Diagnosis Screening mammogram for breast cancer documented in this encounter [facility] Work Phone: Evaluation note* Diagnosis Type 2 diabetes mellitus without complication, without long-term current use of insulin (Multi) Fibromyalgia Unspecified myalgia and myositis Primary hypertension Unspecified essential hypertension Gastroesophageal reflux disease without esophagitis Esophageal reflux documented in this encounter [facility] Work Phone: Evaluation note* Diagnosis Mild intermittent asthma without complication (HHS-HCC)- Primary documented in this encounter [facility] Work Phone: Evaluation note* Diagnosis Type 2 diabetes mellitus without complication, without long-term current use of insulin- Primary Non-seasonal allergic rhinitis, unspecified trigger Primary hypertension Unspecified essential hypertension Low vitamin B12 level Mixed hyperlipidemia documented in this encounter [facility] Work Phone: Evaluation note* Diagnosis Swollen lymph nodes- Primary Enlargement of lymph nodes Screening mammogram for breast cancer Chronic upper back pain Neck pain Cervicalgia Acute pain of right shoulder documented in this encounter [facility] Work Phone: Evaluation note* Diagnosis Breast lump Lump or mass in breast Right axillary swelling documented in this encounter [facility] Work Phone: History of Present illness NarrativePatient is a pleasant 50-year-old female who presents today after sustaining a ground-level fall and a twisting injury to the right ankle she had a popping sensation was immediately unable to bear weight she was seen evaluated emergency department where she was diagnosed with a distal fibula fracture she was placed in a splint and she follows up today for this injury. She denies any numbness and tingling but does have a significant amount of pain in the leg she has been nonweightbearing.[facility] [address] Work Phone: History of Present illness NarrativePatient is a pleasant 50-year-old female presents in follow-up with regards to her right ankle fracture. She is continue to be nonweightbearing she is been using a scooter or wheelchair to get around. She does still have some moderate pain in the ankle but the swelling has been improving and she has been in the boot full- time. She denies any numbness and tingling in the foot.[facility] [address] Work Phone: History of Present illness NarrativePatient is a pleasant 50-year-old female presents in follow-up with regards to her right ankle fracture. She is continue to be nonweightbearing she is been using a scooter or wheelchair to get around. She does still have some moderate pain in the ankle but the swelling has been improving and she has been in the boot full- time. She denies any numbness and tingling in the foot.[facility] [address] Work Phone: History of Present illness NarrativePatient is a very pleasant 50-year-old female who presents today in follow-up with regards to her right ankle fracture. Patient continues to heal nicely from her fracture. She has maintained strict nonweightbearing right ankle she has been in the boot since previous visit. She did unfortunately suffer a small chemical burn on the undersurface of her foot from some sodium bicarbonate to try and remove the smell in the boot but unfortunately it did cause some slough of the skin on the plantar surface of the foot but otherwise she has been doing well her pain is improving she is only taking Motrin to manage her symptom.-[facility] [address] Work Phone: History of Present illness NarrativePatient is a pleasant 50-year-old female presenting today for follow-up evaluation of right ankle fracture. Patient states she is still swollen and limping with it. She states the limping caused by the ankle pain has began to agitate the left hip. She has been using crutches and switched from wearing the boot to the lace up brace. Due to how swollen she is, she will have testing for a blood-clot and wear the compression sock. She does have an improvement in range of motion. She states her work schedule and not being able to elevate the ankle could be causing some of the swelling. She is unable to take time off of work at this time.-[facility] Work Phone: History of Present illness Narrative* Diabetes Type II - Takes and tolerates medications. No hypoglycemia. Counseled on diet with low carbohydrate intake, weight loss and increased activity levels/exercise. * not active with ankle - a1c up 9.2 * Hypertension - Takes medication without side effects. No CP/SOB/Palpitations. Follows a no added salt diet. Counseled diet, activity and weight loss. * FOBT given today * MMG at [facility] * flu and covid shots done -[facility] Work Phone: History of Present illness Narrative* She just got the Trulicity filled for 3 months 1.5 mg. But has been 1 month since her A1c. We will see her in 2 months to reevaluate. * Work on increasing activity and eating less carbohydrates * I recommend we increase to 3 mg next office visit. * Could also increase the Xigduo and add a long-acting insulin. * Stopping the jrpi-akm-seiwqrn pain medications and the dexamethasone really helped with her headaches. She is only had 1 mild headache each week in the last 3 weeks. None of them were migraines. * Just continue Zoloft for now. * Other aches and pains are little bit worse. Dexamethasone did help with her aches and pains. * Still feeling sinus we will have her take prednisone for 5 days 20 mg she has all 10 mg tablets, add amoxicillin. -[facility] Work Phone: reason for referral (narrative)* Consultation (Routine) - Authorized Specialty Diagnoses / Procedures Referred By Chirag hoffmann Referred To Contact Primary Care Procedures Follow Up In Primary Care - Established Jd Brennan MD [address] [place] [address] Referral ID Status Reason Start Date Expiration Date V isits Requested Visits Authorized [id number] Authorized 09/16/2022 03/15/2023 1 1 [facility] Work Phone: Reoiry for referral (narrative)* Consultation (Routine) - Authorized Specialty Diagnoses / Procedures Referred By Chirag hoffmann Referred To Contact Primary Care Procedures Follow Up In Primary Care - Established Jd Brennan MD [address] [place] [address] Referral ID Status Reason Start Date Expiration Date V isits Requested Visits Authorized [id number] Authorized 08/29/2023 08/28/2024 1 1 [facility] Work Phone: reason for referral (narrative)* Consultation (Routine) - Authorized Specialty Diagnoses / Procedures Referred By Chirag hoffmann Referred To Contact Primary Care Procedures Follow Up In Primary Care - Established Jd Brennan MD [address] [place] [address] Phone: tel: fax: Referral ID Status Reason Start Date Expiration Date V isits Requested Visits Authorized [id number] Authorized 03/08/2024 03/08/2025 1 1 [facility] Work Phone: reason for visit Narrative* Imaging (Routine) - Authorized Specialty Diagnoses / Procedures Referred By Contac t Referred To Contact Radiology Diagnoses Breast lump Right axillary swelling Procedures BI US breast limited right Lucia Simmons MD [address] [place] [address] Phone: tel: fax: Referral ID Status Reason Start Date Expiration Date Visits Requested Visits Authorized [id number] Authorized Perform Procedure 08/31/2024 08/31/2025 1 1 [facility] Work Phone: reason for visit Narrative* Imaging (Routine) - Authorized Specialty Diagnoses / Procedures Referred By Chirag hoffmann Referred To Contact Radiology Diagnoses Breast lump Right axillary swelling Procedures BI mammo bilateral diagnostic tomosynthesis Lucia Simmons MD [address] [place] [address] Phone: tel: fax: Referral ID Status Reason Start Date Expiration Date Visits Requested Visits Authorized [id number] Authorized Perform Procedure 08/31/2024 08/31/2025 1 1 [facility] Work Phone: Summary Purpose Family History No Family History Records Found Child Name Dates Details Family history of asthma(V17 .5, Z82.5) Status:Active Grandparent Name Dates Details Family history of hypertensi on(V17.49, Z82.49) Status:Active Family history of diabetes m mitaitus(V18.0, Z83.3) Status:Active Family history of cerebrovas cular accident (CVA)(V17.1, Z82.3) Status:Active Family history of coronary a rtery disease(V17.3, Z82.49) Status:Active Mother Name Dates Details Family history of asthma(V17 .5, Z82.5) Status:Active Family history of hypertensi on(V17.49, Z82.49) Status:Active Father Name Dates Details Family history of diabetes m ellitus(V18.0, Z83.3) Status:Active Child Name Dates Details Family history of asthma(V17 .5, Z82.5) Status:Active Grandparent Name Dates Details Family history of hypertensi on(V17.49, Z82.49) Status:Active Family history of diabetes m ellitus(V18.0, Z83.3) Status:Active Family history of cerebrovas cular accident (CVA)(V17.1, Z82.3) Status:Active Family history of coronary a rtery disease(V17.3, Z82.49) Status:Active Mother Name Dates Details Family history of asthma(V17 .5, Z82.5) Status:Active Family history of hypertensi on(V17.49, Z82.49) Status:Active Father Name Dates Details Family history of diabetes m ellitus(V18.0, Z83.3) Status:Active Child Name Dates Details Family history of asthma(V17 .5, Z82.5) Status:Active Grandparent Name Dates Details Family history of hypertensi on(V17.49, Z82.49) Status:Active Family history of diabetes m ellitus(V18.0, Z83.3) Status:Active Family history of cerebrovas cular accident (CVA)(V17.1, Z82.3) Status:Active Family history of coronary a rtery disease(V17.3, Z82.49) Status:Active Mother Name Dates Details Family history of asthma(V17 .5, Z82.5) Status:Active Family history of hypertensi on(V17.49, Z82.49) Status:Active Father Name Dates Details Family history of diabetes m ellitus(V18.0, Z83.3) Status:Active Child Name Dates Details Family history of asthma(V17 .5, Z82.5) Status:Active Grandparent Name Dates Details Family history of hypertensi on(V17.49, Z82.49) Status:Active Family history of diabetes m ellitus(V18.0, Z83.3) Status:Active Family history of cerebrovas cular accident (CVA)(V17.1, Z82.3) Status:Active Family history of coronary a rtery disease(V17.3, Z82.49) Status:Active Mother Name Dates Details Family history of asthma(V17 .5, Z82.5) Status:Active Family history of hypertensi on(V17.49, Z82.49) Status:Active Father Name Dates Details Family history of diabetes m ellitus(V18.0, Z83.3) Status:Active Unknown Family Member Name Dates Details Family history of asthma: Mo ther, Child(V17.5, Z82.5) Status:Active Family history of hypertensi on: Mother, Grandparent(V17.49, Z82.49) Status:Active Family history of diabetes m ellitus: Father, Grandparent(V18.0, Z83.3) Status:Active Family history of cerebrovas cular accident (CVA): Grandparent(V17.1, Z82.3) Status:Active Family history of coronary a rtery disease: Grandparent(V17.3, Z82.49) Status:Active Unknown Family Member Name Dates Details Family history of asthma: Mo ther, Child(V17.5, Z82.5) Status:Active Family history of hypertensi on: Mother, Grandparent(V17.49, Z82.49) Status:Active Family history of diabetes m ellitus: Father, Grandparent(V18.0, Z83.3) Status:Active Family history of cerebrovas cular accident (CVA): Grandparent(V17.1, Z82.3) Status:Active Family history of coronary a rtery disease: Grandparent(V17.3, Z82.49) Status:Active Unknown Family Member Name Dates Details Family history of asthma: Mo ther, Child(V17.5, Z82.5) Status:Active Family history of hypertensi on: Mother, Grandparent(V17.49, Z82.49) Status:Active Family history of diabetes m ellitus: Father, Grandparent(V18.0, Z83.3) Status:Active Family history of cerebrovas cular accident (CVA): Grandparent(V17.1, Z82.3) Status:Active Family history of coronary a rtery disease: Grandparent(V17.3, Z82.49) Status:Active Unknown Family Member Name Dates Details Family history of asthma: Mo ther, Child(V17.5, Z82.5) Status:Active Family history of hypertensi on: Mother, Grandparent(V17.49, Z82.49) Status:Active Family history of diabetes m ellitus: Father, Grandparent(V18.0, Z83.3) Status:Active Family history of cerebrovas cular accident (CVA): Grandparent(V17.1, Z82.3) Status:Active Family history of coronary a rtery disease: Grandparent(V17.3, Z82.49) Status:Active Unknown Family Member Name Dates Details Family history of asthma: Mo ther, Child(V17.5, Z82.5) Status:Active Family history of hypertensi on: Mother, Grandparent(V17.49, Z82.49) Status:Active Family history of diabetes m ellitus: Father, Grandparent(V18.0, Z83.3) Status:Active Family history of cerebrovas cular accident (CVA): Grandparent(V17.1, Z82.3) Status:Active Family history of coronary a rtery disease: Grandparent(V17.3, Z82.49) Status:Active Unknown Family Member Name Dates Details Family history of asthma: Mo ther, Child(V17.5, Z82.5) Status:Active Family history of hypertensi on: Mother, Grandparent(V17.49, Z82.49) Status:Active Family history of diabetes m ellitus: Father, Grandparent(V18.0, Z83.3) Status:Active Family history of cerebrovas cular accident (CVA): Grandparent(V17.1, Z82.3) Status:Active Family history of coronary a rtery disease: Grandparent(V17.3, Z82.49) Status:Active Unknown Family Member Name Dates Details Family history of asthma: Mo ther, Child(V17.5, Z82.5) Status:Active Family history of hypertensi on: Mother, Grandparent(V17.49, Z82.49) Status:Active Family history of diabetes m ellitus: Father, Grandparent(V18.0, Z83.3) Status:Active Family history of cerebrovas cular accident (CVA): Grandparent(V17.1, Z82.3) Status:Active Family history of coronary a rtery disease: Grandparent(V17.3, Z82.49) Status:Active Unknown Family Member Name Dates Details Family history of asthma: Mo ther, Child(V17.5, Z82.5) Status:Active Family history of hypertensi on: Mother, Grandparent(V17.49, Z82.49) Status:Active Family history of diabetes m ellitus: Father, Grandparent(V18.0, Z83.3) Status:Active Family history of cerebrovas cular accident (CVA): Grandparent(V17.1, Z82.3) Status:Active Family history of coronary a rtery disease: Grandparent(V17.3, Z82.49) Status:Active Unknown Family Member Name Dates Details Family history of asthma: Mo ther, Child(V17.5, Z82.5) Status:Active Family history of hypertensi on: Mother, Grandparent(V17.49, Z82.49) Status:Active Family history of diabetes m ellitus: Father, Grandparent(V18.0, Z83.3) Status:Active Family history of cerebrovas cular accident (CVA): Grandparent(V17.1, Z82.3) Status:Active Family history of coronary a rtery disease: Grandparent(V17.3, Z82.49) Status:Active Unknown Family Member Name Dates Details Family history of asthma: Mo ther, Child(V17.5, Z82.5) Status:Active Family history of hypertensi on: Mother, Grandparent(V17.49, Z82.49) Status:Active Family history of diabetes m ellitus: Father, Grandparent(V18.0, Z83.3) Status:Active Family history of cerebrovas cular accident (CVA): Grandparent(V17.1, Z82.3) Status:Active Family history of coronary a rtery disease: Grandparent(V17.3, Z82.49) Status:Active Unknown Family Member Name Dates Details Family history of asthma: Mo ther, Child(V17.5, Z82.5) Status:Active Family history of hypertensi on: Mother, Grandparent(V17.49, Z82.49) Status:Active Family history of diabetes m ellitus: Father, Grandparent(V18.0, Z83.3) Status:Active Family history of cerebrovas cular accident (CVA): Grandparent(V17.1, Z82.3) Status:Active Family history of coronary a rtery disease: Grandparent(V17.3, Z82.49) Status:Active Unknown Family Member Name Dates Details Family history of asthma: Mo ther, Child(V17.5, Z82.5) Status:Active Family history of hypertensi on: Mother, Grandparent(V17.49, Z82.49) Status:Active Family history of diabetes m ellitus: Father, Grandparent(V18.0, Z83.3) Status:Active Family history of cerebrovas cular accident (CVA): Grandparent(V17.1, Z82.3) Status:Active Family history of coronary a rtery disease: Grandparent(V17.3, Z82.49) Status:Active Unknown Family Member Name Dates Details Family history of asthma: Mo ther, Child(V17.5, Z82.5) Status:Active Family history of hypertensi on: Mother, Grandparent(V17.49, Z82.49) Status:Active Family history of diabetes m ellitus: Father, Grandparent(V18.0, Z83.3) Status:Active Family history of cerebrovas cular accident (CVA): Grandparent(V17.1, Z82.3) Status:Active Family history of coronary a rtery disease: Grandparent(V17.3, Z82.49) Status:Active Unknown Family Member Name Dates Details Family history of asthma: Mo ther, Child(V17.5, Z82.5) Status:Active Family history of hypertensi on: Mother, Grandparent(V17.49, Z82.49) Status:Active Family history of diabetes m ellitus: Father, Grandparent(V18.0, Z83.3) Status:Active Family history of cerebrovas cular accident (CVA): Grandparent(V17.1, Z82.3) Status:Active Family history of coronary a rtery disease: Grandparent(V17.3, Z82.49) Status:Active Unknown Family Member Name Dates Details Family history of asthma: Mo ther, Child(V17.5, Z82.5) Status:Active Family history of hypertensi on: Mother, Grandparent(V17.49, Z82.49) Status:Active Family history of diabetes m ellitus: Father, Grandparent(V18.0, Z83.3) Status:Active Family history of cerebrovas cular accident (CVA): Grandparent(V17.1, Z82.3) Status:Active Family history of coronary a rtery disease: Grandparent(V17.3, Z82.49) Status:Active Unknown Family Member Name Dates Details Family history of asthma: Mo ther, Child(V17.5, Z82.5) Status:Active Family history of hypertensi on: Mother, Grandparent(V17.49, Z82.49) Status:Active Family history of diabetes m ellitus: Father, Grandparent(V18.0, Z83.3) Status:Active Family history of cerebrovas cular accident (CVA): Grandparent(V17.1, Z82.3) Status:Active Family history of coronary a rtery disease: Grandparent(V17.3, Z82.49) Status:Active Unknown Family Member Name Dates Details Family history of asthma: Mo ther, Child(V17.5, Z82.5) Status:Active Family history of hypertensi on: Mother, Grandparent(V17.49, Z82.49) Status:Active Family history of diabetes m ellitus: Father, Grandparent(V18.0, Z83.3) Status:Active Family history of cerebrovas cular accident (CVA): Grandparent(V17.1, Z82.3) Status:Active Family history of coronary a rtery disease: Grandparent(V17.3, Z82.49) Status:Active Unknown Family Member Name Dates Details Family history of asthma: Mo ther, Child(V17.5, Z82.5) Status:Active Family history of hypertensi on: Mother, Grandparent(V17.49, Z82.49) Status:Active Family history of diabetes m ellitus: Father, Grandparent(V18.0, Z83.3) Status:Active Family history of cerebrovas cular accident (CVA): Grandparent(V17.1, Z82.3) Status:Active Family history of coronary a rtery disease: Grandparent(V17.3, Z82.49) Status:Active Unknown Family Member Name Dates Details Family history of asthma: Mo ther, Child(V17.5, Z82.5) Status:Active Family history of hypertensi on: Mother, Grandparent(V17.49, Z82.49) Status:Active Family history of diabetes m ellitus: Father, Grandparent(V18.0, Z83.3) Status:Active Family history of cerebrovas cular accident (CVA): Grandparent(V17.1, Z82.3) Status:Active Family history of coronary a rtery disease: Grandparent(V17.3, Z82.49) Status:Active Unknown Family Member Name Dates Details Family history of asthma: Mo ther, Child(V17.5, Z82.5) Status:Active Family history of hypertensi on: Mother, Grandparent(V17.49, Z82.49) Status:Active Family history of diabetes m ellitus: Father, Grandparent(V18.0, Z83.3) Status:Active Family history of cerebrovas cular accident (CVA): Grandparent(V17.1, Z82.3) Status:Active Family history of coronary a rtery disease: Grandparent(V17.3, Z82.49) Status:Active Unknown Family Member Name Dates Details Family history of asthma: Mo ther, Child(V17.5, Z82.5) Status:Active Family history of hypertensi on: Mother, Grandparent(V17.49, Z82.49) Status:Active Family history of diabetes m ellitus: Father, Grandparent(V18.0, Z83.3) Status:Active Family history of cerebrovas cular accident (CVA): Grandparent(V17.1, Z82.3) Status:Active Family history of coronary a rtery disease: Grandparent(V17.3, Z82.49) Status:Active Unknown Family Member Name Dates Details Family history of asthma: Mo ther, Child(V17.5, Z82.5) Status:Active Family history of hypertensi on: Mother, Grandparent(V17.49, Z82.49) Status:Active Family history of diabetes m ellitus: Father, Grandparent(V18.0, Z83.3) Status:Active Family history of cerebrovas cular accident (CVA): Grandparent(V17.1, Z82.3) Status:Active Family history of coronary a rtery disease: Grandparent(V17.3, Z82.49) Status:Active Unknown Family Member Name Dates Details Family history of asthma: Mo ther, Child(V17.5, Z82.5) Status:Active Family history of hypertensi on: Mother, Grandparent(V17.49, Z82.49) Status:Active Family history of diabetes m ellitus: Father, Grandparent(V18.0, Z83.3) Status:Active Family history of cerebrovas cular accident (CVA): Grandparent(V17.1, Z82.3) Status:Active Family history of coronary a rtery disease: Grandparent(V17.3, Z82.49) Status:Active Unknown Family Member Name Dates Details Family history of asthma: Mo ther, Child(V17.5, Z82.5) Status:Active Family history of hypertensi on: Mother, Grandparent(V17.49, Z82.49) Status:Active Family history of diabetes m ellitus: Father, Grandparent(V18.0, Z83.3) Status:Active Family history of cerebrovas cular accident (CVA): Grandparent(V17.1, Z82.3) Status:Active Family history of coronary a rtery disease: Grandparent(V17.3, Z82.49) Status:Active Unknown Family Member Name Dates Details Family history of asthma: Mo ther, Child(V17.5, Z82.5) Status:Active Family history of hypertensi on: Mother, Grandparent(V17.49, Z82.49) Status:Active Family history of diabetes m ellitus: Father, Grandparent(V18.0, Z83.3) Status:Active Family history of cerebrovas cular accident (CVA): Grandparent(V17.1, Z82.3) Status:Active Family history of coronary a rtery disease: Grandparent(V17.3, Z82.49) Status:Active Unknown Family Member Name Dates Details Family history of asthma: Mo ther, Child(V17.5, Z82.5) Status:Active Family history of hypertensi on: Mother, Grandparent(V17.49, Z82.49) Status:Active Family history of diabetes m ellitus: Father, Grandparent(V18.0, Z83.3) Status:Active Family history of cerebrovas cular accident (CVA): Grandparent(V17.1, Z82.3) Status:Active Family history of coronary a rtery disease: Grandparent(V17.3, Z82.49) Status:Active Unknown Family Member Name Dates Details Family history of asthma: Mo ther, Child(V17.5, Z82.5) Status:Active Family history of hypertensi on: Mother, Grandparent(V17.49, Z82.49) Status:Active Family history of diabetes m ellitus: Father, Grandparent(V18.0, Z83.3) Status:Active Family history of cerebrovas cular accident (CVA): Grandparent(V17.1, Z82.3) Status:Active Family history of coronary a rtery disease: Grandparent(V17.3, Z82.49) Status:Active Unknown Family Member Name Dates Details Family history of asthma: Mo ther, Child(V17.5, Z82.5) Status:Active Family history of hypertensi on: Mother, Grandparent(V17.49, Z82.49) Status:Active Family history of diabetes m ellitus: Father, Grandparent(V18.0, Z83.3) Status:Active Family history of cerebrovas cular accident (CVA): Grandparent(V17.1, Z82.3) Status:Active Family history of coronary a rtery disease: Grandparent(V17.3, Z82.49) Status:Active Unknown Family Member Name Dates Details Family history of asthma: Mo ther, Child(V17.5, Z82.5) Status:Active Family history of hypertensi on: Mother, Grandparent(V17.49, Z82.49) Status:Active Family history of diabetes m ellitus: Father, Grandparent(V18.0, Z83.3) Status:Active Family history of coronary a rtery disease: Grandparent(V17.3, Z82.49) Status:Active Family history of cerebrovas cular accident (CVA): Grandparent, Mother(V17.1, Z82.3) Status:Active Family history of myocardial infarction: Mother(V17.3, Z82.49) Status:Active Unknown Family Member Name Dates Details Family history of asthma: Mo ther, Child(V17.5, Z82.5) Status:Active Family history of hypertensi on: Mother, Grandparent(V17.49, Z82.49) Status:Active Family history of diabetes m ellitus: Father, Grandparent(V18.0, Z83.3) Status:Active Family history of coronary a rtery disease: Grandparent(V17.3, Z82.49) Status:Active Family history of cerebrovas cular accident (CVA): Grandparent, Mother(V17.1, Z82.3) Status:Active Family history of myocardial infarction: Mother(V17.3, Z82.49) Status:Active Unknown Family Member Name Dates Details Family history of asthma: Mo ther, Child(V17.5, Z82.5) Status:Active Family history of hypertensi on: Mother, Grandparent(V17.49, Z82.49) Status:Active Family history of diabetes m ellitus: Father, Grandparent(V18.0, Z83.3) Status:Active Family history of coronary a rtery disease: Grandparent(V17.3, Z82.49) Status:Active Family history of cerebrovas cular accident (CVA): Grandparent, Mother(V17.1, Z82.3) Status:Active Family history of myocardial infarction: Mother(V17.3, Z82.49) Status:Active Unknown Family Member Name Dates Details Family history of asthma: Mo ther, Child(V17.5, Z82.5) Status:Active Family history of hypertensi on: Mother, Grandparent(V17.49, Z82.49) Status:Active Family history of diabetes m ellitus: Father, Grandparent(V18.0, Z83.3) Status:Active Family history of coronary a rtery disease: Grandparent(V17.3, Z82.49) Status:Active Family history of cerebrovas cular accident (CVA): Grandparent, Mother(V17.1, Z82.3) Status:Active Family history of myocardial infarction: Mother(V17.3, Z82.49) Status:Active Advance Directives No Advanced Directives Records FoundDocuments on File Type Date Recorded 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 LMP- 3/4 years ago. Patient does not do self breast exams and has no concerns at this time.R ANKLE FX,R ANKLE FX,PT HERE FOR 1 WK FU RIGHT ANKLE FX. HERE WITH . STATES PAIN IS CONSTANT. DIFFICULTY SLEEPING. HAS NOTICED INCREASED PAIN WHEN USING CRUTCHES. HAS BEEN ICING. WEARING BOOT. XRAYS BEFORE.PT HERE FOR 1 WK FU RIGHT ANKLE FX. HERE WITH . STATES PAIN IS CONSTANT. DIFFICULTY SLEEPING. HAS NOTICED INCREASED PAIN WHEN USING CRUTCHES. HAS BEEN ICING. WEARING BOOT. XRAYS BEFORE.5 WK F/U R ANKLE FX. PAIN 1/10Here for 2 wk f/u Right Ankle FxHere for 2 wk f/u Right Ankle FxHere for 2 wk f/u Right Ankle FxF/U right ankle fx. Still swollen and limping with it. Starting to agitate left hip.6MO DMII, GIL, FATIGUE, HTN, NUMBNESS CHKF/U R ANKLE FXURGENT CARE F/U [id number] FU Reason for Referral Specialty Diagnoses / Procedures Referred By Chirag hoffmann Referred To Contact Radiology Diagnoses Screening mammogram for breast cancer Procedures BI mammo bilateral screening tomosynthesis [address] [address] Referral ID Status Reason Start Date Expiration Date Visits Requested Visits Authorized [id number] Authorized Perform Procedure 08/19/2023 08/18/2024 1 1 Additional Source Comments INFORMATION SOURCE (unrecogn ized section and content) DATE CREATED AUTHOR 08/30/2017 [facility] DATE CREATED AUTHOR AUTHOR'S ORGANIZ ATION 11/10/2017 [facility] DATE CREATED AUTHOR AUTHOR'S ORGANIZ ATION 11/16/2018 [facility] DATE CREATED AUTHOR AUTHOR'S ORGANIZ ATION 12/06/2018 [facility] DATE CREATED AUTHOR AUTHOR'S ORGANIZ ATION 05/03/2021 [facility] DATE CREATED AUTHOR AUTHOR'S ORGANIZ ATION 10/15/2022 [facility] DATE CREATED AUTHOR AUTHOR'S ORGANIZ ATION 10/15/2022 [facility] DATE CREATED AUTHOR AUTHOR'S ORGANIZ ATION 10/29/2022 [facility] DATE CREATED AUTHOR AUTHOR'S ORGANIZ ATION 08/31/2024 [facility] DATE CREATED AUTHOR AUTHOR'S ORGANIZ ATION 09/13/2024 [facility] <item><item><item><item> Privacy Markings (unrecogniz ed section and content) Section Author: Sunshine Lechuga PROHIBITION ON REDISCLOSURE OF CONFIDENTIAL INFORMATION This notice accompanies a disclosure of information concerning a client made to you with the consent of such client. Section Author: Sunshine Lechuga PROHIBITION ON REDISCLOSURE OF CONFIDENTIAL INFORMATION This notice accompanies a disclosure of information concerning a client made to you with the consent of such client. Section Author: Sunshine Lechuga PROHIBITION ON REDISCLOSURE OF CONFIDENTIAL INFORMATION This notice accompanies a disclosure of information concerning a client made to you with the consent of such client. Section Author: Sunshine Lechuga PROHIBITION ON REDISCLOSURE OF CONFIDENTIAL INFORMATION This notice accompanies a disclosure of information concerning a client made to you with the consent of such client. Reason for Visit (unrecogniz ed section and content) Reason Comments Cough Headache Sore Throat Cough, SORE THROAT, headache, wheezing , states chest hurts with deep breath/coughing- states 2 negative covid home tests, states did phone visit with PCP and prescribed prednisone and tessalon pearls, states is on day 3 of RX and feels like its getting worse- Reason Comments Follow-up Rev Labs Reason Comments Follow-up REV LABS Reason Comments Sore Throat EAR FULLNESS, HEADAC HES, VERTIGO, AND VOMITING xWK Reason Comments 6 month follow up C/o vertigo x 2 week s / headaches Specialty Diagnoses / Procedures Referred By Chirag hoffmann Referred To Contact Primary Care Procedures Follow Up In Primary Care - Established Jd Brennan MD [address] [place] [address] Referral ID Status Reason Start Date Expiration Date V isits Requested Visits Authorized [id number] Authorized 02/25/2023 02/25/2024 1 1 Specialty Diagnoses / Procedures Referred By Chirag hoffmann Referred To Contact Radiology Diagnoses Screening mammogram for breast cancer Procedures BI mammo bilateral screening tomosynthesis [facility] [address] [place] [address] Referral ID Status Reason Start Date Expiration Date Visits Requested Visits Authorized [id number] Authorized Perform Procedure 08/19/2023 08/18/2024 1 1 Reason Comments Follow-up 3 MO FU REV LABS Specialty Diagnoses / Procedures Referred By Chirag hoffmann Referred To Contact Primary Care Procedures Follow Up In Primary Care - Established Jd Brennan MD Phone: tel: fax: Referral ID Status Reason Start Date Expiration Date V isits Requested Visits Authorized [id number] Authorized 08/29/2023 08/28/2024 1 1 Reason Comments Follow-up Cough x 1 week Reason Comments Follow-up 3mo chk- rev labs Specialty Diagnoses / Procedures Referred By Chirag hoffmnan Referred To Contact Primary Care Procedures Follow Up In Primary Care - Established Jd Brennan MD [address] [address] Phone: tel: fax: Referral ID Status Reason Start Date Expiration Date V isits Requested Visits Authorized [id number] Authorized 03/08/2024 03/08/2025 1 1 Reason Comments SWELLING SWELLING DOWN BOTH S IDES Care Teams (unrecognized sec tion and content) Parachute Folder Relationship Specialty Start Date End Date Jd Brennan MD [address] [place] [address] PCP - General Family Medicine 05/03/21 Parachute Folder Relationship Specialty Start Date End Date Jd Brennan MD [address] [id number] PCP - General 11/26/19 Parachute Folder Relationship Specialty Start Date End Date Jd Brennan MD [address] [place] [id number] PCP - General 11/26/19 Parachute Folder Relationship Specialty Start Date End Date Jd Brennan MD [address] [place] [address] PCP - General 11/26/19 Parachute Folder Relationship Specialty Start Date End Date Jd Brennan MD [address] [place] [address] PCP - General 11/26/19 Parachute Folder Relationship Specialty Start Date End Date Jd Brennan MD [address] [place] [address] PCP - General 11/26/19 Parachute Folder Relationship Specialty Start Date End Date Jd Brennan MD [address] [address] PCP - General Family Medicine 03/08/24 Parachute Folder Relationship Specialty Start Date End Date Jd Brennan MD [address] [address] PCP - General Family Medicine 03/08/24 Parachute Folder Relationship Specialty Start Date End Date Jd Brennan MD [address] [address] PCP - General Family Medicine 03/08/24 Parachute Folder Relationship Specialty Start Date End Date Jd Brennan MD [address] [address] PCP - General Family Medicine 03/08/24 Parachute Folder Relationship Specialty Start Date End Date Jd Brennan MD [address] [address] PCP - General Family Medicine 03/08/24 FOR RECORDS PERTAINING TO PATIENTS WHO ARE OR HAVE BEEN ENROLLED IN A CHEMICAL DEPENDENCY/SUBSTANCEABUSE PROGRAM, SOME INFORMATION MAY BE OMITTED. This clinical summary was aggregated from multiple sources. Caution should be exercised in using it in the provision of clinical care. This summary normalizes information from multiple sources, and as a consequence, information in this document may materially change the coding, format and clinical context of patient data. In addition, data may be omitted in some cases. CLINICAL DECISIONS SHOULD BE BASED ON THE PRIMARY CLINICAL RECORDS. [facility]. provides no warranty or guarantee of the accuracy or completeness of information in this document.
[2024-11-24 11:43] VITALS: BP 136/84; PULSE 81; RESP 18; TEMP 36.6; O2SAT 97
== END 2024-11-24 11:44 | disposition home or self-care (01) ==
PROVIDERS: Emergency Provider Emergency Medicine; PCP Family Medicine; Visit Provider Emergency Medicine
DX: S32.030A Wedge compression fracture of third lumbar vertebra, initial encounter for closed fracture (principal); S22.080A Wedge compression fracture of T11-T12 vertebra, initial encounter for closed fracture; E11.9 Type 2 diabetes mellitus without complications; W18.2XXA Fall in (into) shower or empty bathtub, initial encounter
CPT/HCPCS: 72131; 96372; 99283